=== PATIENT | female | born 1955 | race Caucasian/White ===

== ENCOUNTER 2017-04-10 11:01 | Emergency (ER) | payer OTHER ==
[2017-04-10 11:26] VITALS: TEMP 98.3; BMI 38.7
--- NOTE | 2017-04-10 11:57 | PDOC ---
History of Present Illness - General Chief Complaint: Edema Stated Complaint: LEFT LEG SWELLING Time Seen by Provider: 04/10/17 11:10 - History of Present Illness Initial Comments: 04/10/17 11:53 "The patient is a 61-year-old female from [facility] facility with a significant past medical history of osteoarthritis, hypothyroidism, NIDDM, HTN, HLD, GERD, borderline personality disorder, anxiety, constipation, and presents to the emergency department with left leg swelling for the last few days. She reports she sprained her left ankle one week ago and was seen at [facility] where she had negative Xrays. She has since been ambulatory w/ a walker. Pt is sent from nursing facility because when her ankle wrap was being changed today, the nurse noticed significant redness, swelling, and warmth to her L leg. Pt reports the leg is painful to touch. She does not know exactly when the leg became that swollen but states that both of her legs are swollen at baseline. Pt denies CP, SOB, FLORES. Denies F/C, N/V/D. Allergies: clindamycin, keflex, sulfur, nuts, strawberries Past Surgical History: None reported (awaiting b/l TKRs) Social History: No toxic habits reported PCP: Dr. Judy Harris " Past History - Past Medical History Allergies/Adverse Reactions: Allergies Allergy/AdvReac Type Severity Reaction Status Date / Time bee venom protein (honey bee) Allergy Verified 04/10/17 11:26 cephalexin monohydrate Allergy Verified 04/10/17 11:52 [From Keflex] clindamycin Allergy Verified 04/10/17 11:52 peanut Allergy Verified 04/10/17 11:26 strawberry Allergy Verified 04/10/17 11:26 Sulfa (Sulfonamide Allergy Verified 04/10/17 11:26 Antibiotics) Home Medications: Ambulatory Orders Aripiprazole [Abilify -] 5 mg PO DAILY 04/10/17 Atorvastatin Ca [Lipitor] 10 mg PO HS 04/10/17 Baclofen 20 mg PO TID 04/10/17 Bupropion HCl [Wellbutrin Sr] 150 mg PO DAILY 04/10/17 Cholecalciferol (Vitamin D3) [Vitamin D3 -] 1,000 unit PO DAILY 04/10/17 Clonazepam [Klonopin] 1 mg PO DAILY 04/10/17 Clonazepam [Klonopin] 2 mg PO HS 04/10/17 Clotrimazole/Betamet Diprop [Lotrisone Cream (Small Tube)] 1 applic TP BID 04/10 Docusate Sodium [Colace -] 100 mg PO TID 04/10/17 Doxycycline Hyclate 100 mg PO BID #14 capsule 04/10/17 Furosemide [Lasix] 40 mg PO TID 04/10/17 Gabapentin [Neurontin] 300 mg PO HS 04/10/17 Lactulose 30 gm PO TID 04/10/17 Levothyroxine [Synthroid -] 175 mcg PO DAILY 04/10/17 Magnesium Hydroxide [Milk of Magnesia] 400 mg PO HS 04/10/17 Metoprolol Succinate [Toprol Xl -] 25 mg PO DAILY 04/10/17 Naproxen [Naprosyn -] 375 mg PO BID 04/10/17 Nicotine Polacrilex [Nicotine Gum] 2 mg BC DAILY 04/10/17 Omeprazole 20 mg PO DAILY 04/10/17 Oxycodone HCl/Acetaminophen [Percocet 10-325 mg Tablet] 1 each PO QID PRN Polyethylene Glycol 3350 [Miralax (For Bowel Prep) -] 17 gm PO DAILY 04/10/17 Trazodone HCl 100 mg PO HS 04/10/17 Venlafaxine HCl ER [Effexor Xr -] 150 mg PO BID 04/10/17 Anemia: Yes COPD: No Diabetes: Yes HTN: Yes Hypercholesterolemia: Yes Psychiatric Problems: Yes (anxiety, borderline pesonality, depression) Thyroid Disease: Yes Other medical history: arthritis, spinal stenosis - Suicide/Smoking/Psychosocial Hx Smoking History: Current some day smoker Number of Cigarettes Smoked Daily: 2 Information on smoking cessation initiated: No Review of Systems - Review of Systems Comments:: 04/10/17 11:55 "GENERAL/CONSTITUTIONAL: No fever or chills. No weakness. HEAD, EYES, EARS, NOSE AND THROAT: No change in vision. No ear pain or discharge. No sore throat. CARDIOVASCULAR: No chest pain or shortness of breath. RESPIRATORY: No cough, wheezing, or hemoptysis. GASTROINTESTINAL: No nausea, vomiting, diarrhea or constipation. GENITOURINARY: No dysuria, frequency, or change in urination. MUSCULOSKELETAL: (+) Left leg edema and pain. No neck or back pain. SKIN: No rash NEUROLOGIC: No headache, vertigo, loss of consciousness, or change in strength/ sensation. ENDOCRINE: No increased thirst. No abnormal weight change. HEMATOLOGIC/LYMPHATIC: No anemia, easy bleeding, or history of blood clots. ALLERGIC/IMMUNOLOGIC: No hives or skin allergy. " *Physical Exam - Vital Signs Last Vital Signs Temp Pulse Resp BP Pulse Ox 98.3 F 58 L 18 121/60 98 04/10/17 11:24 04/10/17 11:24 04/10/17 11:24 04/10/17 11:24 04/10/17 11:24 - Physical Exam Comments: 04/10/17 11:55 "GENERAL: Awake, alert, and fully oriented, in no acute distress HEAD: No signs of trauma EYES: PERRLA, EOMI, sclera anicteric, conjunctiva clear ENT: Auricles normal inspection, hearing grossly normal, nares patent, oropharynx clear without exudates. Moist mucosa NECK: Nontender, no stepoffs, Normal ROM, supple, no lymphadenopathy, JVD, or masses LUNGS: Breath sounds equal, clear to auscultation bilaterally. No wheezes, and no crackles HEART: Regular rate and rhythm, normal S1 and S2, no murmurs, rubs or gallops ABDOMEN: Soft, nontender, normoactive bowel sounds. No guarding, no rebound. No masses EXTREMITIES: Normal range of motion, (+) Left lowerleg edema, erythema, and warmth, no fluctuance, distal pulses intact. No clubbing or cyanosis. No cords. NEUROLOGICAL: Cranial nerves II through XII intact. 5/5 strength and sensation in all extremities, Normal speech SKIN: Warm, Dry, normal turgor, no rashes or lesions noted. " ED Treatment Course - LABORATORY CBC & Chemistry Diagram: 04/10/17 11:55 04/10/17 11:55 - RADIOLOGY Radiology Studies Ordered: Category Date Time Status DUPLEX VASCUL US-2LEGS [US] Stat Ultrasound 04/10/17 11:19 Ordered SOFT TISSUE EXTREMITY US [US] Stat Ultrasound 04/10/17 11:21 Ordered - Medications Given in the ED: ED Medications Discontinued Medications Generic Name Dose Route Start Last Admin Trade Name Freq PRN Reason Stop Dose Admin Oxycodone/Acetaminophen 1 combo 04/10/17 11:45 04/10/17 11:48 Percocet 5/325 - PO 04/10/17 11:46 1 combo ONCE ONE Administration Medical Decision Making - Medical Decision Making 04/10/17 11:55 61 F with LLE swelling, redness, and pain. Concerning for cellulitis. Will also evaluate for DVT given limited mobility since spraining her ankle last week. Pt with normal vitals, no signs of systemic infection at this time. Pt already had negative X rays at [facility] and has no tenderness to posterior aspect of lateral or medial malleolus, no tenderness over navicular or base of 5th metatarsal, and pt is ambulatory in ER. - Labs, cultures - US - Abx 04/10/17 14:51 US negative for DVT and abscess. Pt's leg swelling likely 2/2 cellulitis. Pt started on doxycycline (allergies to bactrim, keflex, and clinda). I discussed the physical exam findings, ancillary test results and final diagnoses with the patient. I answered all of the patient's questions. The patient was satisfied with the care received and felt comfortable with the discharge plan and treatment plan. The patient agrees to follow up with the primary care physician within 24-72 hours. 04/12/17 23:55 *DC/Admit/Observation/Transfer Diagnosis at time of Disposition: Cellulitis - Discharge Dispostion Disposition: [facility] Condition at time of disposition: Good - Prescriptions Prescriptions: Doxycycline Hyclate 100 mg PO BID #14 capsule - Referrals Referrals: Judy Harris MD [Primary Care Provider] - - Patient Instructions Printed Discharge Instructions: DI for Cellulitis -- Adult Additional Instructions: Take the doxycycline as prescribed to treat your skin infection. If you experience worsening pain, swelling, redness, fevers, or any other concerning symptoms, return to the ER immediately. Otherwise, follow up with your primary care doctor within 1-2 weeks for a re- evaluation. - Post Discharge Activity - Attestations Physician Attestion: 04/10/17 14:53 I, Dr. Lloyd Moulton MD, attest that this document has been prepared under my direction and personally reviewed by me in its entirety. I further attest, that it accurately reflects all work, treatment, procedures and medical decision -making performed by me.
[2017-04-10 12:09] LABS: EOSINOPHIL 2.3 % (0-4.5); MCHC 33.7 g/dl (32.0-36.0); MEAN PLT VOLUME 7.5 fl (7.5-11.1); PLATELET COUNT 212 K/MM3 (134-434); RDW 13.8 % (11.6-15.6); WHITE BLOOD COUNT 6.5 K/mm3 (4.0-10.0)
[2017-04-10] MEDS ORDERED: VANCOMYCIN 1,250 MG in DEXTROSE 5%-WATER - 250 ML IVPB ONE (12:30)
[2017-04-10 12:41] LABS: ALBUMIN 3.7 g/dl (3.4-5.0); ALK PHOS 110 U/L (45-117); ANION GAP 10 (8-16); BILIRUBIN,TOTAL 0.5 mg/dL (0.2-1.0); C-REACTIVE PROTEIN 3.1 MG/DL (0.00-0.3); CALCIUM 8.4 mg/dL (8.5-10.1); CO2 25 mmol/L (21-32); CREATININE 0.5 mg/dL (0.55-1.02); GLUCOSE,RANDOM 65 mg/dL (74-106); SGOT/AST 16 U/L (15-37); SGPT/ALT 19 U/L (12-78); TOT PROT 6.7 g/dl (6.4-8.2)
[2017-04-10] MEDS ORDERED: DOXYCYCLINE HYCLATE 100 MG CAPSULE PO ONE ×2 (14:45→15:04)
[2017-04-10 15:52] VITALS: BP 139/75; PULSE 62
== END 2017-04-10 16:30 ==
LOC: JER 11:01
DX: L03.116 Cellulitis of left lower limb (principal); I10 Essential (primary) hypertension; E78.00 Pure hypercholesterolemia, unspecified; E03.9 Hypothyroidism, unspecified; E11.9 Type 2 diabetes mellitus without complications; Z79.84 Long term (current) use of oral hypoglycemic drugs; D64.9 Anemia, unspecified; K21.9 Gastro-esophageal reflux disease without esophagitis; F41.8 Other specified anxiety disorders; F60.9 Personality disorder, unspecified; M19.90 Unspecified osteoarthritis, unspecified site; R26.89 Other abnormalities of gait and mobility; Z99.89 Dependence on other enabling machines and devices
CPT/HCPCS: 36415; 76882; 80053; 83880; 85025; 86140; 87040; 93970-TC; 96365; 99282-25

== ENCOUNTER 2017-04-14 21:08 | Emergency (ER) | payer OTHER ==
[2017-04-14 22:29] VITALS: PULSE 70; TEMP 97.6; BMI 38.7
--- NOTE | 2017-04-15 00:24 | PDOC ---
Attending Attestation - Resident Resident Name: Nav Cyr - ED Attending Attestation I have performed the following: I have examined & evaluated the patient, The case was reviewed & discussed with the resident, I agree w/resident's findings & plan, Exceptions are as noted - HPI HPI: 04/15/17 00:18 61yo F hx back surgery, osteoarthiritis p/w L ankle pain and swelling. Pt was seen here 04/10/17 for the same, had LE US which was negative for DVT and DC on doxycycline for cellulitis. Reports redness has improved but had an XR of her ankle at [facility] which showed a fracture and was sent here for management. Pt does not have any XR reports or CDs with her. Reports she has not been able to walk on the ankle since the injury. Denies fevers, chills, cp, sob, abd pain, N/V/D, weakness or numbness. - Physicial Exam PE: 04/15/17 00:24 GENERAL: Awake, alert, and fully oriented, in no acute distress HEAD: No signs of trauma EYES: PERRLA, EOMI, sclera anicteric, conjunctiva clear ENT: Auricles normal inspection, hearing grossly normal, nares patent, oropharynx clear without exudates. Moist mucosa NECK: Normal ROM, supple, no lymphadenopathy, JVD, or masses LUNGS: Breath sounds equal, clear to auscultation bilaterally. No wheezes, and no crackles HEART: Regular rate and rhythm, normal S1 and S2, no murmurs, rubs or gallops ABDOMEN: Soft, nontender, normoactive bowel sounds. No guarding, no rebound. No masses EXTREMITIES: L ankle with deformity and ttp around medial and lateral malleoli. L calf with mild erythema but no induration, warmth, or fluctuance. 1+ edema in b/l calves, not asymmetric. 2+ DP pulse in L foot. Remainder of extremities with FROM, no tenderness or edema with 2+ peripheral pulses NEUROLOGICAL: Normal speech, cranial nerves intact, negative pronator drift, 5/ 5 strength in all 4 extremities, normal sensation to light touch in all 4 extremities, normal cerebellar exam, normal gait, normal reflexes and tone SKIN: Warm, Dry, normal turgor, no rashes or lesions noted. - Medical Decision Making 04/15/17 00:27 61-year-old female presents with likely ankle fracture. LLE is neurovascularly intact. XR with possible tri-malleolar fracture. Case discussed with Dr. Abad who recommends posterior splint and to follow up with him today in clinic. Posterior splint placed. I discussed the physical exam findings, ancillary test results and final diagnoses with the patient. I answered all of the patient's questions. The patient was satisfied with the care received and felt comfortable with the discharge plan and treatment plan. The patient will call their primary care physician within 24 hours to arrange follow-up and will return to the Emergency Department with any new, persistent or worsening symptoms.
--- NOTE | 2017-04-15 00:26 | PDOC ---
History of Present Illness - General Stated Complaint: FRACTURED RT ANKLE Time Seen by Provider: 04/14/17 23:19 History Source: Patient Exam Limitations: No Limitations - History of Present Illness Initial Comments: 04/15/17 00:23 61F with history of osteoarthritis, cellulitis and scoliosis here today complaining of left ankle pain. She says she was using her walker about seven days ago when she slipped and almost fell, catching her weight with her left foot. She says that since then she hasn't been able to use her walker since then. She was evaluated at [facility] ED 4 days ago and diagnosed with cellulitis and treated with doxycycline. She reports taking her doxycycline and gradual improvement of her cellutitis. She denies nausea, vomiting, fevers and chills. She denies chest pain, shortness of breath, and abdominal pain. Past History - Past Medical History Allergies/Adverse Reactions: Allergies Allergy/AdvReac Type Severity Reaction Status Date / Time bee venom protein (honey bee) Allergy Verified 04/14/17 22:24 cephalexin monohydrate Allergy Verified 04/14/17 22:24 [From Keflex] clindamycin Allergy Verified 04/14/17 22:24 peanut Allergy Verified 04/14/17 22:24 strawberry Allergy Verified 04/14/17 22:24 Sulfa (Sulfonamide Allergy Verified 04/14/17 22:24 Antibiotics) Home Medications: Ambulatory Orders Aripiprazole [Abilify -] 5 mg PO DAILY 04/10/17 Atorvastatin Ca [Lipitor] 10 mg PO HS 04/10/17 Baclofen 20 mg PO TID 04/10/17 Bupropion HCl [Wellbutrin Sr] 150 mg PO DAILY 04/10/17 Cholecalciferol (Vitamin D3) [Vitamin D3 -] 1,000 unit PO DAILY 04/10/17 Clonazepam [Klonopin] 1 mg PO DAILY 04/10/17 Clonazepam [Klonopin] 2 mg PO HS 04/10/17 Clotrimazole/Betamet Diprop [Lotrisone Cream (Small Tube)] 1 applic TP BID 04/10 Docusate Sodium [Colace -] 100 mg PO TID 04/10/17 Doxycycline Hyclate 100 mg PO BID #14 capsule 04/10/17 Furosemide [Lasix] 40 mg PO TID 04/10/17 Gabapentin [Neurontin] 300 mg PO HS 04/10/17 Lactulose 30 gm PO TID 04/10/17 Levothyroxine [Synthroid -] 175 mcg PO DAILY 04/10/17 Magnesium Hydroxide [Milk of Magnesia] 400 mg PO HS 04/10/17 Metoprolol Succinate [Toprol Xl -] 25 mg PO DAILY 04/10/17 Naproxen [Naprosyn -] 375 mg PO BID 04/10/17 Nicotine Polacrilex [Nicotine Gum] 2 mg BC DAILY 04/10/17 Omeprazole 20 mg PO DAILY 04/10/17 Oxycodone HCl/Acetaminophen [Percocet 10-325 mg Tablet] 1 each PO QID PRN Polyethylene Glycol 3350 [Miralax (For Bowel Prep) -] 17 gm PO DAILY 04/10/17 Trazodone HCl 100 mg PO HS 04/10/17 Venlafaxine HCl ER [Effexor Xr -] 150 mg PO BID 04/10/17 Anemia: Yes COPD: No Diabetes: Yes HTN: Yes Hypercholesterolemia: Yes Psychiatric Problems: Yes (anxiety, borderline pesonality, depression) Thyroid Disease: Yes - Suicide/Smoking/Psychosocial Hx Smoking History: Unknown if ever smoked Have you smoked in the past 12 months: No Number of Cigarettes Smoked Daily: 2 Information on smoking cessation initiated: No Hx Alcohol Use: No Drug/Substance Use Hx: No Review of Systems - Review of Systems Able to Perform ROS?: Yes Comments:: 04/15/17 00:31 GENERAL/CONSTITUTIONAL: No fever or chills. No weakness. HEAD, EYES, EARS, NOSE AND THROAT: No change in vision. No ear pain or discharge. No sore throat. CARDIOVASCULAR: No chest pain or shortness of breath RESPIRATORY: No cough, wheezing, or hemoptysis. GASTROINTESTINAL: No nausea, vomiting, diarrhea or constipation. GENITOURINARY: No dysuria, frequency, or change in urination. MUSCULOSKELETAL: Positive for left ankle pain and back pain SKIN: Positive for rash over distal left leg NEUROLOGIC: No headache, vertigo, loss of consciousness, or change in strength/ sensation. ENDOCRINE: No increased thirst. No abnormal weight change HEMATOLOGIC/LYMPHATIC: No anemia, easy bleeding, or history of blood clots. ALLERGIC/IMMUNOLOGIC: No hives or skin allergy. *Physical Exam - Vital Signs Last Vital Signs Temp Pulse Resp BP Pulse Ox 97.6 F 70 14 151/75 97 04/14/17 22:25 04/14/17 22:25 04/14/17 22:25 04/14/17 22:25 04/14/17 22:25 - Physical Exam Comments: 04/15/17 00:32 GENERAL: Awake, alert, and fully oriented, in no acute distress HEAD: No signs of trauma, normocephalic, atraumatic EYES: PERRLA, EOMI, sclera anicteric, conjunctiva clear ENT: Auricles normal inspection, hearing grossly normal, nares patent, oropharynx clear without exudates. Moist mucosa NECK: Normal ROM, supple, no lymphadenopathy, JVD, or masses LUNGS: No distress, speaks full sentences, clear to auscultation bilaterally HEART: Regular rate and rhythm, normal S1 and S2, no murmurs, rubs or gallops, peripheral pulses normal and equal bilaterally. ABDOMEN: Soft, nontender, normoactive bowel sounds. No guarding, no rebound. No masses EXTREMITIES: Normal inspection, Normal range of motion, no edema. No clubbing or cyanosis. NEUROLOGICAL: Cranial nerves II through XII grossly intact. Normal speech, normal gait, no focal sensorimotor deficits SKIN: 8x8cm area of erythema on distal anterior leg, not warm to touch L ANKLE/FOOT: Neurovascularly intact, range of motion limited by pain. Tender to palpation in lateral and medial maleolus. Tender to palpation along medial aspect of foot. No obvious swelling or bruising. No obvious deformity. ED Treatment Course - RADIOLOGY Radiology Studies Ordered: Category Date Time Status ANKLE & FOOT-LEFT* [RAD] Stat Radiology 04/15/17 00:17 Ordered Medical Decision Making - Medical Decision Making 04/15/17 02:28 61F with history of OA and scoliosis here today with left ankle pain. Vital signs stable and normal. X-rays show fracture of distal tibia and fibula with small amount of posterior displacement. Dr Tinsley from othropedics consulted, will see patient in the office tomorrow morning. Will place patient in splint as per his instructions for discharge with a prescription for pain control. *DC/Admit/Observation/Transfer Diagnosis at time of Disposition: Closed left ankle fracture - Discharge Dispostion Disposition: HOME Condition at time of disposition: Good Admit: No - Referrals Referrals: Judy Harris MD [Primary Care Provider] - - Patient Instructions Printed Discharge Instructions: Ankle Fracture Additional Instructions: Please see Dr Abad tomorrow in his office between 10a-1p. His office located at [address] and the phone number is [phone]. Please return if you have any new, worsening or concerning symptoms. - Post Discharge Activity
[2017-04-15 05:03] VITALS: BP 131/70
== END 2017-04-15 05:00 ==
LOC: JER 21:08
PROC: 2W3RX1Z Immobilization of Left Lower Leg using Splint (ICD-10-PCS; principal; 2017-04-14)
DX: S82.852A Displaced trimalleolar fracture of left lower leg, initial encounter for closed fracture (principal); W18.39XA Other fall on same level, initial encounter; Y93.01 Activity, walking, marching and hiking; Y92.128 Other place in nursing home as the place of occurrence of the external cause; Y99.8 Other external cause status; D64.9 Anemia, unspecified; I10 Essential (primary) hypertension; E78.00 Pure hypercholesterolemia, unspecified; F41.8 Other specified anxiety disorders; F60.9 Personality disorder, unspecified; M19.90 Unspecified osteoarthritis, unspecified site
CPT/HCPCS: 73610-TC-LT; 73630-TC-LT; 99284-25

== ENCOUNTER 2017-10-13 11:16 | Inpatient (IN) | payer OTHER ==
--- NOTE | 2017-10-13 12:17 | PDOC ---
History of Present Illness - General Chief Complaint: Redness To Affected Area Stated Complaint: CELLULITIS - History of Present Illness Initial Comments: patient is a 61 year old female, with a significant past medical history of HTN , HLD, obesity, recent treated for LE cellulitis at [facility] over two weeks ago, presenting with worsening of LE cellulitis over past week. Pt recently seen at [facility] 2-3 weeks ago for worsening BL LE erythema, drainage. Pt treated with 10 day course of IV abx (unknown), discharged on oral abx (pt unsure) with initial improvement. After discharge on PO abx, pt endorses increased erythema, drainage, primarily from L leg with worsening pain. Pt also endorses one week of chills while at home. Of note, pt with chronic BL LE edema secondary to venous insufficiency. Recently received ?ORIF BL of LEs due to fx, states that after her wen were removed from L leg, began to develop LE cellulitis. No recent travel or sick contacts. Patient denies chest pain, shortness of breath, headache or dizziness. Denies fever, nausea, vomiting, diarrhea. Denies dysuria, frequency, urgency and hematuria. Endorses chronic constipation. No other rashes, nasal congestion, dysphagia, cough. Allergies: Sulfa drug - anaphylaxis Past surgical history: BL LE ORIF for leg fractures Social History: Current smoker, 3/4 cigs per day; no alcohol, drug use PMD: None currently; prior PCP Dr. Judy Harris 10/13/17 12:16 Past History - Past Medical History Allergies/Adverse Reactions: Allergies Allergy/AdvReac Type Severity Reaction Status Date / Time bee venom protein (honey bee) Allergy Verified 10/13/17 11:27 cephalexin monohydrate Allergy Verified 10/13/17 11:27 [From Keflex] clindamycin Allergy Verified 10/13/17 11:27 peanut Allergy Verified 10/13/17 11:27 strawberry Allergy Verified 10/13/17 11:27 Sulfa (Sulfonamide Allergy Verified 10/13/17 11:27 Antibiotics) Home Medications: Ambulatory Orders Aripiprazole [Abilify -] 5 mg PO DAILY 04/10/17 Atorvastatin Ca [Lipitor] 40 mg PO HS 04/10/17 Baclofen 20 mg PO TID 04/10/17 Bupropion HCl [Wellbutrin Sr] 150 mg PO DAILY 04/10/17 Clonazepam [Klonopin] 2 mg PO AM 04/10/17 Clonazepam [Klonopin] 4 mg PO HS 04/10/17 Docusate Sodium [Colace -] 100 mg PO TID 04/10/17 Furosemide [Lasix] 40 mg PO ASDIR 04/10/17 Magnesium Hydroxide [Milk of Magnesia] 30 ml PO HS 04/10/17 Trazodone HCl 100 mg PO HS 04/10/17 Venlafaxine HCl ER [Effexor Xr -] 150 mg PO DAILY 04/10/17 Levothyroxine [Synthroid -] 175 mcg PO DAILY 10/13/17 Pantoprazole Sodium [Protonix] 40 mg PO DAILY 10/13/17 Sennosides [Senna] 2 tab PO HS 10/13/17 Anemia: Yes COPD: No Diabetes: Yes HTN: Yes Hypercholesterolemia: Yes Psychiatric Problems: Yes (anxiety, borderline pesonality, depression) Thyroid Disease: Yes - Suicide/Smoking/Psychosocial Hx Smoking History: Unknown if ever smoked Have you smoked in the past 12 months: No Number of Cigarettes Smoked Daily: 4 Information on smoking cessation initiated: No Hx Alcohol Use: No Drug/Substance Use Hx: No Substance Use Type: None Review of Systems - Review of Systems Comments:: GENERAL/CONSTITUTIONAL: +chills. No fever.No weakness. HEAD, EYES, EARS, NOSE AND THROAT: No change in vision. No ear pain or discharge. No sore throat. CARDIOVASCULAR: No chest pain or shortness of breath RESPIRATORY: No cough, wheezing, or hemoptysis. GASTROINTESTINAL: No nausea, vomiting, diarrhea. +Constipation GENITOURINARY: No dysuria, frequency, or change in urination. MUSCULOSKELETAL: No joint or muscle swelling. No neck or back pain. SKIN: BL LE swelling, erythema, drainage and pain. NEUROLOGIC: No headache, vertigo, loss of consciousness, or change in strength/ sensation. ENDOCRINE: No increased thirst. No abnormal weight change HEMATOLOGIC/LYMPHATIC: No anemia, easy bleeding, or history of blood clots. ALLERGIC/IMMUNOLOGIC: No hives or skin allergy. 10/13/17 12:17 *Physical Exam - Vital Signs Last Vital Signs Temp Pulse Resp BP Pulse Ox 97.7 F 66 18 105/68 96 10/13/17 11:28 10/13/17 11:28 10/13/17 11:28 10/13/17 11:28 10/13/17 11:28 - Physical Exam Comments: GENERAL: Obese woman, Awake, alert, and fully oriented, in no acute distress HEAD: No signs of trauma, normocephalic, atraumatic EYES: PERRLA, EOMI, sclera anicteric, conjunctiva clear ENT: Auricles normal inspection, hearing grossly normal, nares patent, oropharynx clear without exudates. Moist mucosa NECK: Normal ROM, supple, no lymphadenopathy, JVD, or masses LUNGS: Decreased air entry at bases. No distress, speaks full sentences, clear to auscultation bilaterally HEART: Regular rate and rhythm, normal S1 and S2, no murmurs, rubs or gallops, peripheral pulses normal and equal bilaterally. ABDOMEN: Globular. Soft, nontender, normoactive bowel sounds. No guarding, no rebound. No masses EXTREMITIES : Normal inspection, Normal range of motion, no edema. No clubbing or cyanosis. NEUROLOGICAL: Cranial nerves II through XII grossly intact. Normal speech, normal gait, no focal sensorimotor deficits SKIN: Warm, Dry, normal turgor, no rashes or lesions noted 10/13/17 12:17 ED Treatment Course - LABORATORY CBC & Chemistry Diagram: 10/16/17 06:00 10/16/17 06:00 Medical Decision Making - Medical Decision Making 61 year old female, with a significant past medical history of HTN, HLD, obesity , recent treated for LE cellulitis at [facility] over two weeks ago, presenting with worsening of LE cellulitis over past week. Increased BL suspected cellulitis. Will send CMP, CBC, lactate, coags, blood and urine cultures. Will cover empirically with Vanc/zosyn. Will likely admit for cellulitis with vascular and ID consults. 10/13/17 13:56 Pt became rigorous w/ Temp of 103 upon administration of Vanc. Infusion stopped , IV tylenol ordered. 10/13/17 16:[address]ist Resident Dr. Britton. Pt signed out. Will admit to [facility]. 10/13/17 18:13 *DC/Admit/Observation/Transfer Diagnosis at time of Disposition: Cellulitis - Discharge Dispostion Condition at time of disposition: Fair Decision to Admit order: Yes - Referrals - Patient Instructions - Post Discharge Activity
--- NOTE | 2017-10-13 13:46 | PDOC ---
Attending Attestation - Resident Resident Name: ChikaDat - ED Attending Attestation I have performed the following: I have examined & evaluated the patient, The case was reviewed & discussed with the resident, I agree w/resident's findings & plan, Exceptions are as noted - HPI HPI: 10/13/17 13:38 Ms River is a 61 yo F with a h/o HTN, HLD, obesity, recent treated for LE cellulitis at [place] for 10 days, discahrged on po abx Despite compliance, pt has been noted to have worsening erythema. (+) drainage (+) increased pain - Physicial Exam PE: 10/13/17 14:22 GENERAL: Awake, alert, and fully oriented, in no acute distress LUNGS: No distress, speaks full sentences, clear to auscultation bilaterally HEART: Regular rate and rhythm, normal S1 and S2, no murmurs, rubs or gallops, peripheral pulses normal and equal bilaterally. ABDOMEN: Soft, nontender, normoactive bowel sounds. No guarding, no rebound. No masses EXTREMITIES : Normal inspection, Normal range of motion, no edema. No clubbing or cyanosis. NEUROLOGICAL: Cranial nerves II through XII grossly intact. Normal speech, normal gait, no focal sensorimotor deficits SKIN: Bilateral lower extremity edema, erythema, tenderness, warmth (+) drainage - Medical Decision Making 10/13/17 13:46 Will do labs Will give broad spectrum IV abx Admit to hospitalist service
[2017-10-13] MEDS ORDERED: VANCOMYCIN 1,250 MG in DEXTROSE 5%-WATER - 250 ML IVPB ONE (13:53)
[2017-10-13] MEDS ORDERED: PIPERACILLIN/TAZOB 3.375 GM 3.375 GM in DEXTROSE 5%-WATER - 50 ML IVPB ONE ×2 (13:54→23:00)
[2017-10-13 14:21] LABS: EOS % 2.2 % (0-4.5); HEMATOCRIT 30.6 % (32.4-45.2); LYMPH % 22.2 % (8-40); MCH 29.7 pg (25.7-33.7); MCHC 32.6 g/dl (32.0-36.0); MEAN CELL VOLUME 91.3 fl (80-96); MEAN PLT VOLUME 7.4 fl (7.5-11.1); MONO % 7.8 % (3.8-10.2); NEUT % 66.8 % (42.8-82.8); PLATELET COUNT 367 K/MM3 (134-434); RBC 3.35 M/mm3 (3.60-5.2); RDW 15.2 % (11.6-15.6); WHITE BLOOD COUNT 7.2 K/mm3 (4.0-10.0)
[2017-10-13 14:44] LABS: INR 0.95 (0.82-1.09); PROTHROMBIN TIME (PATIENT) 10.7 SEC (9.7-13.0)
[2017-10-13 14:46] LABS: ALBUMIN 2.5 g/dl (3.4-5.0); ALK PHOS 154 U/L (45-117); ANION GAP 6 (8-16); BILIRUBIN,TOTAL 0.2 mg/dL (0.2-1.0); BLOOD UREA NITROGEN 10 mg/dL (7-18); CALCIUM 8.3 mg/dL (8.5-10.1); CHLORIDE 105 mmol/L (98-107); CO2 31 mmol/L (21-32); CREATININE 0.7 mg/dL (0.55-1.02); GLUCOSE,RANDOM 120 mg/dL (74-106); POTASSIUM 4.1 mmol/L (3.5-5.1); SGOT/AST 14 U/L (15-37); SGPT/ALT 14 U/L (12-78); SODIUM 142 mmol/L (136-145); TOT PROT 6.8 g/dl (6.4-8.2)
[2017-10-13] MEDS ORDERED: VANCOMYCIN 1 GRAM (PRE-DOCKED) 1,000 MG/250 ML BAG IVPB ONE (15:07)
[2017-10-13] MEDS ORDERED: PIPERACILLIN/TAZOB 3.375 GM 3.375 GM/50 ML BAG IVPB ONE (15:07)
[2017-10-13] MEDS ORDERED: morphine SULFATE 4 MG/ML VIAL ONE (15:13)
--- NOTE | 2017-10-13 16:17 | HP ---
Admitting History and Physical - Admission History of Present Illness: HPI This is a 61 year old female with pmhx of HTN, HLD, obesity, recent treated for LE cellulitis at [facility] over two weeks ago, presenting with worsening of LE cellulitis over past week. Pt recently seen at [facility] 2-3 weeks ago for worsening BL LE erythema, drainage. Pt treated with 10 day course of IV abx (unknown), discharged on oral abx (pt unsure) with initial improvement. After discharge on PO abx, pt endorses increased erythema, drainage, primarily from L leg with worsening pain. Pt also endorses one week of chills while at home. Of note, pt with chronic BL LE edema secondary to venous insufficiency. Recently received ?ORIF BL of LEs due to fx, states that after her wen were removed from L leg, began to develop LE cellulitis. No recent travel or sick contacts. Patient denies chest pain, shortness of breath, headache or dizziness. Denies fever, nausea, vomiting, diarrhea. Denies dysuria, frequency, urgency and hematuria. Endorses chronic constipation. No other rashes, nasal congestion, dysphagia, cough. Allergies: Sulfa drug - anaphylaxis Past surgical history: BL LE ORIF for leg fractures Social History: Current smoker, 3/4 cigs per day; no alcohol, drug use PMD: None currently; prior PCP Dr. Judy Harris History Source: Family Member, Medical Record - Smoking History Smoking history: Unknown if ever smoked Have you smoked in the past 12 months: No Aproximately how many cigarettes per day: 4 - Alcohol/Substance Use Hx Alcohol Use: No Home Medications - Allergies Allergies/Adverse Reactions: Allergies Allergy/AdvReac Type Severity Reaction Status Date / Time bee venom protein (honey bee) Allergy Verified 10/13/17 11:27 cephalexin monohydrate Allergy Verified 10/13/17 11:27 [From Keflex] clindamycin Allergy Verified 10/13/17 11:27 peanut Allergy Verified 10/13/17 11:27 strawberry Allergy Verified 10/13/17 11:27 Sulfa (Sulfonamide Allergy Verified 10/13/17 11:27 Antibiotics) - Home Medications Home Medications: Ambulatory Orders Aripiprazole [Abilify -] 5 mg PO DAILY 04/10/17 Atorvastatin Ca [Lipitor] 40 mg PO HS 04/10/17 Baclofen 20 mg PO TID 04/10/17 Bupropion HCl [Wellbutrin Sr] 150 mg PO DAILY 04/10/17 Clonazepam [Klonopin] 2 mg PO AM 04/10/17 Clonazepam [Klonopin] 4 mg PO HS 04/10/17 Docusate Sodium [Colace -] 100 mg PO TID 04/10/17 Doxycycline Hyclate 100 mg PO BID #14 capsule 04/10/17 Furosemide [Lasix] 40 mg PO ASDIR 04/10/17 Lactulose 30 gm PO TID 04/10/17 Magnesium Hydroxide [Milk of Magnesia] 30 ml PO HS 04/10/17 Trazodone HCl 100 mg PO HS 04/10/17 Venlafaxine HCl ER [Effexor Xr -] 150 mg PO DAILY 04/10/17 Ammonium Lactate Cream [Lac-Hydrin 12% *Cream*] 1 applic TP DAILY 10/13/17 Oxycodone HCl/Acetaminophen [Percocet 10-325 mg Tablet] 1 each PO QID PRN Pantoprazole Sodium [Protonix] 40 mg PO DAILY 10/13/17 Sennosides [Senna] 2 tab PO HS 10/13/17 Physical Examination Vital Signs: Vital Signs Temperature 97.7 F 10/13/17 11:28 Pulse Rate 66 10/13/17 11:28 Respiratory Rate 18 10/13/17 11:28 Blood Pressure 105/68 10/13/17 11:28 O2 Sat by Pulse Oximetry (%) 96 10/13/17 11:28 Labs: CBC, BMP 10/13/17 14:05 10/13/17 14:05 Hospitalist Screening - Colonoscopy Questionnaire Colonoscopy Questionnaire: Colonoscopy Questionnaire
[2017-10-13] MEDS ORDERED: ACETAMINOPHEN 1000 MG/100 ML VIAL (NON FORMULARY) IVPB ONE (16:43)
--- NOTE | 2017-10-13 19:47 | PN ---
Teaching Attending Note Name of Resident: Sabra Lopez ATTENDING PHYSICIAN STATEMENT I saw and evaluated the patient. I reviewed the resident's note and discussed the case with the resident. I agree with the resident's findings and plan as documented. SUBJECTIVE: CC: LE edema and erythema HPI: poor historian. reports an admission to OSH lately , discharged 3 weeks ago on Abx for LE cellulitis after being treated with IV abx ( unknown names ). after finishing her Abx , legs felt better but then worsened again with edema and erythema, she reports applying a cream to it but does not remember name . she denies fever but reports chills denies trauma, SOB, CP , dysuria or other complaints OBJECTIVE: NAD , dry MM, no facial droop, EOMI, no LAP in neck Cv : RRR, 3/6 Sm at [facility] . Lungs: CTAB Abd: soft, obese, umbilical hernia partially reducible. tender to palpation in all quadrants, no rebound tenderness or guarding . nl BS Ext: erythema and edema on legs with greenish dry secretions on legs . DP 2+ on R , 1+ on L . fungal infection among toes . ASSESSMENT AND PLAN: 61 y/o lady with h/o HTN, HLD, obesity, h/o fracture repair on LE ( not clear ) and recent admission to [place]SH [place] and erythema and was found to have cellulitis of LE . 1- b/l LE cellulitis : with skin breakdown and inea pedis . recent hospitalization , unknown cx or abx used - give zosyn and doxy for now ( had rigors and fever of 03 during vanco infusion in [place]) - follow blood cx - ID consult for Abx guidance - treat tinea pedis with nystatin as this could be port of entry - no signs of sepsis. nL lactic acid - will obtain records and cultures from OSH 2- abd tenderness . no diarrhea . no dysuria -check KUB - check UA 3- Volume depletion : - will clarify home meds. ? lasix - no signs of CHFnow - start hydration 4- h/o depression : cont psych meds DVT PX
--- NOTE | 2017-10-13 20:35 | HP ---
CHIEF COMPLAINT: leg pain and redness PCP: None HISTORY OF PRESENT ILLNESS: The patient is a 61 year old female BIBA from [facility] that presented today complaining of worsening lower extremity pain, swelling and redness progressively over the last several weeks. The patient doesn't know how long. According to her daughter, the patient was also recently treated for cellulitis in [place], hospitalized for 10 days, treated with IV antibiotics. Discharged 2 weeks ago. According to her daughter, she was told that the surgery and wire in left ankle may be contributing to her infection and surgery was recommended in the near future. Her daughter also doesn't remember the name of her antibiotic that she was treated with. When I saw the patient she was complaining of lower extremity pain, redness and feeling chilly , feeling tired. She also admitted to intentionally loosing 45 lbs/year. She denies fever, chest pain, nausea, vomiting. She denies dysuria, increased frequency, urgency. ER course was notable for: (1)Vanco and Zosyn (2)blood cultures (3)CBC, CMP Recent Travel: No PAST MEDICAL HISTORY: as above PAST SURGICAL HISTORY: left ankle surgery 2017, 5 spine surgeries Social History: Smokin-5 cigarettes/day, Alcohol:denies Drugs: denies Family History: Doesn't remember Allergies bee venom protein (honey bee) Allergy (Verified 10/13/17 11:27) cephalexin monohydrate [From Keflex] Allergy (Verified 10/13/17 11:27) clindamycin Allergy (Verified 10/13/17 11:27) peanut Allergy (Verified 10/13/17 11:27) strawberry Allergy (Verified 10/13/17 11:27) Sulfa (Sulfonamide Antibiotics) Allergy (Verified 10/13/17 11:27) HOME MEDICATIONS: Home Medications Medication Instructions Recorded Aripiprazole [Abilify -] 5 mg PO DAILY 04/10/17 Atorvastatin Ca [Lipitor] 40 mg PO HS 04/10/17 Baclofen 20 mg PO TID 04/10/17 Bupropion HCl [Wellbutrin Sr] 150 mg PO DAILY 04/10/17 Clonazepam [Klonopin] 2 mg PO AM 04/10/17 Clonazepam [Klonopin] 4 mg PO HS 04/10/17 Docusate Sodium [Colace -] 100 mg PO TID 04/10/17 Doxycycline Hyclate 100 mg PO BID #14 capsule 04/10/17 Furosemide [Lasix] 40 mg PO ASDIR 04/10/17 Lactulose 30 gm PO TID 04/10/17 Magnesium Hydroxide [Milk of 30 ml PO HS 04/10/17 Magnesia] Trazodone HCl 100 mg PO HS 04/10/17 Venlafaxine HCl ER [Effexor Xr -] 150 mg PO DAILY 04/10/17 Ammonium Lactate Cream [Lac-Hydrin 1 applic TP DAILY 10/13/17 12% *Cream*] Oxycodone HCl/Acetaminophen 1 each PO QID PRN 10/13/17 [Percocet 10-325 mg Tablet] Pantoprazole Sodium [Protonix] 40 mg PO DAILY 10/13/17 Sennosides [Senna] 2 tab PO HS 10/13/17 REVIEW OF SYSTEMS CONSTITUTIONAL: chills, weight loss Absent: fever, diaphoresis, generalized weakness, malaise, loss of appetite, HEENT: Absent: rhinorrhea, nasal congestion, throat pain, throat swelling, difficulty swallowing, mouth swelling, ear pain, eye pain, visual changes CARDIOVASCULAR: Absent: chest pain, syncope, palpitations, irregular heart rate, lightheadedness , peripheral edema RESPIRATORY: Absent: cough, shortness of breath, dyspnea with exertion, orthopnea, wheezing, GASTROINTESTINAL: Absent: abdominal pain, nausea, vomiting, diarrhea, constipation, melena, hematochezia GENITOURINARY: Absent: dysuria, frequency, urgency, hesitancy, hematuria, flank pain, genital pain MUSCULOSKELETAL: lower extremity pain Absent: joint swelling, back pain, neck pain SKIN: rash, Absent: itching, pallor HEMATOLOGIC/IMMUNOLOGIC: Absent: easy bleeding, easy bruising, lymphadenopathy, frequent infections ENDOCRINE: Absent: unexplained weight gain, unexplained weight loss, heat intolerance, cold intolerance NEUROLOGIC: Absent: headache, focal weakness or paresthesias, dizziness, unsteady gait, seizure, mental status changes, bladder or bowel incontinence PSYCHIATRIC: Absent: anxiety, depression PHYSICAL EXAMINATION Vital Signs - 24 hr 10/13/17 11:28 Temperature 97.7 F Pulse Rate 66 Respiratory 18 Rate Blood Pressure 105/68 O2 Sat by Pulse 96 Oximetry (%) GENERAL: Awake, alert, and fully oriented, in no acute distress. HEAD: Normal with no signs of trauma. EYES: Pupils equal, round and reactive to light, extraocular movements intact, sclera anicteric, conjunctiva clear. EARS, NOSE, THROAT: Ears normal, nares patent, oropharynx clear without exudates. Dry mucous membranes. NECK: Normal range of motion, supple without lymphadenopathy, JVD, or masses. LUNGS: Breath sounds equal, clear to auscultation bilaterally. No wheezes, and no crackles. No accessory muscle use. HEART: Regular rate and rhythm, normal S1 and S2 without murmur, rub or gallop. ABDOMEN: Soft, nontender, distended, normoactive bowel sounds, no guarding, no rebound, no masses, umbilical hernia. MUSCULOSKELETAL: Normal range of motion at all joints. No bony deformities or tenderness. UPPER EXTREMITIES: 2+ pulses, warm. No cyanosis. No clubbing. No peripheral edema, bony deformities in PIP, DIP joints in both hands. LOWER EXTREMITIES: 2+ pulses bilaterally, redness and warmth to touch bilaterally from feet to knee bilaterally, edema bilaterally, more in left ankle and foot, oozing in left fox more on lateral side, draining yellowish/ greenish fluid. Right lower extremity: no open wounds. Fungal infection between toes and on toenails. NEUROLOGICAL: No facial asymmetry, no slurred speech, motor 5/5, sensation intact, no gait observed. PSYCHIATRIC: Cooperative. Good eye contact. Appropriate mood and affect. SKIN: Warm, dry, normal. Lower extremities as above Laboratory Results - last 24 hr 10/13/17 10/13/17 10/13/17 14:05 14:05 14:05 WBC 7.2 RBC 3.35 L Hgb 10.0 L Hct 30.6 L MCV 91.3 MCH 29.7 MCHC 32.6 RDW 15.2 D Plt Count 367 D MPV 7.4 L Neutrophils % 66.8 Lymphocytes % 22.2 Monocytes % 7.8 Eosinophils % 2.2 Basophils % 1.0 PT with INR 10.70 INR 0.95 Sodium 142 Potassium 4.1 Chloride 105 Carbon Dioxide 31 Anion Gap 6 L BUN 10 Creatinine 0.7 Creat Clearance w eGFR > 60 Random Glucose 120 H Lactic Acid Calcium 8.3 L Total Bilirubin 0.2 D AST 14 L ALT 14 Alkaline Phosphatase 154 H Total Protein 6.8 Albumin 2.5 L 10/13/17 14:05 WBC RBC Hgb Hct MCV MCH MCHC RDW Plt Count MPV Neutrophils % Lymphocytes % Monocytes % Eosinophils % Basophils % PT with INR INR Sodium Potassium Chloride Carbon Dioxide Anion Gap BUN Creatinine Creat Clearance w eGFR Random Glucose Lactic Acid 1.5 Calcium Total Bilirubin AST ALT Alkaline Phosphatase Total Protein Albumin ASSESSMENT/PLAN: The patient is a 61 year old female BIBA from [facility] that presented today complaining of worsening lower extremity pain, swelling and redness that progressively got worse over the last weeks, but the patient doesn't know how long. The patient was recently treated for cellulitis in [place], finished full course of antibiotics. Cellulitis in lower extremities: -the patient presented with redness, warmth to touch, no elevation of WBC, no fever, VS wnl -she was given Vanco and Zosyn. According to ED resident, she had rigors, 103 F after Vancomycin -we will continue Doxycycline 100 mg BID and Zosyn 375 mg IV -ID consulted, will f/u recommendations -wound care -NS at 100 cc/hr for volume depletion -blood cultures, wound cultures pending -Tylenol for pain -Dupplex of lower extremities no DVTs Abdominal distention: -the patient doesn't complain of abdominal pain but we will obtain KUB flat plate -will f/u UA Fungal infection in feet and under her breast: -continue Nystatin cream Hypothyroidism: -continue Levothyroxin 175 mcg Hyperlipidemia: -cont Lipitor 40 mg daily Possible HTN/CHF: Furosemie 40 mg PO 2 times a week or as needed Depression and anxiety: -we will continue Abilify, Clonazapam DVT ppx: -Heparin sq -scds F/E/N; NS/no changes/Low sodium Disposition: med surg Pharmacy was called. Medications confirmed. Called her daughter Suzy, confirmed most of her PMH. No success with [facility]. Please F/u [place] med records tomorrow. Problem List - Problem (1) Cellulitis Code(s): L03.90 - CELLULITIS, UNSPECIFIED (2) Closed left ankle fracture Code(s): S82.892A - OTH FRACTURE OF LEFT LOWER LEG, INIT FOR CLOS FX Visit type - Emergency Visit Emergency Visit: Yes Care time: The patient presented to the Emergency Department on the above date and was hospitalized for further evaluation of their emergent condition. - New Patient This patient is new to me today: Yes Date on this admission: 10/13/17 - Critical Care Critical Care patient: No Hospitalist Screening - Colonoscopy Questionnaire Colonoscopy Questionnaire: Colonoscopy Questionnaire - Patient: 50 - 75 years old and never had a screening colonoscopy: Unknown History of colon or rectal polyps, or CA: Unknown History of IBD, Crohn's disease or UC: Unknown History of abdominal radiation therapy as a child: Unknown - Relative: 1 with colon or rectal CA, or polyps at age 60 or younger: Unknown Colon or rectal CA diagnosed at age 45 or younger: Unknown Multiple relatives with colon or rectal CA: Unknown - Outcome: Screening Result: Negative Screen
[2017-10-13] MEDS: SODIUM CHLORIDE 1,000 ML IV SCH (22:00)
[2017-10-13 22:03] LABS: BASO % 0.5 % (0-2.0); EOS % 0.3 % (0-4.5); HEMOGLOBIN 9.8 GM/dL (10.7-15.3); LYMPH % 7.2 % (8-40); MCH 29.8 pg (25.7-33.7); MCHC 32.7 g/dl (32.0-36.0); MEAN CELL VOLUME 91.1 fl (80-96); MEAN PLT VOLUME 7.3 fl (7.5-11.1); MONO % 5.5 % (3.8-10.2); NEUT % 86.5 % (42.8-82.8); PLATELET COUNT 372 K/MM3 (134-434); RBC 3.29 M/mm3 (3.60-5.2); RDW 15.4 % (11.6-15.6); WHITE BLOOD COUNT 11.4 K/mm3 (4.0-10.0)
[2017-10-13] MEDS: NYSTATIN 100,000 UNIT/GM TOPICAL CREAM 15 GM TUBE TP SCH (22:04)
[2017-10-13] MEDS: ATORVASTATIN CA 40 MG TABLET (FP) PO SCH (22:04)
[2017-10-13] MEDS: traZODone HCL 100 MG TABLET (FP) PO SCH (22:04)
[2017-10-13] MEDS: DOXYCYCLINE INJECTION 100 MG in DEXTROSE 5%-WATER - 100 ML IVPB SCH (22:05)
[2017-10-13] MEDS ORDERED: ACETAMINOPHEN 325 MG TABLET (FP) ONE (22:33)
[2017-10-13 22:42] LABS: URINE APPEARANCE CLEAR; URINE BILIRUBIN NEGATIVE (<2.0 mg/dL); URINE COLOR STRAW; URINE GLUCOSE (UA) NEGATIVE (NEGATIVE); URINE KETONE NEGATIVE (NEGATIVE); URINE LEUK ESTERASE NEGATIVE (NEGATIVE); URINE NITRITE NEGATIVE (NEGATIVE); URINE PROTEIN NEGATIVE (NEGATIVE); URINE UROBILINOGEN NEGATIVE mg/dL (0.2-1.0)
[2017-10-13 22:48] LABS: ALBUMIN 2.3 g/dl (3.4-5.0); ALK PHOS 133 U/L (45-117); ANION GAP 7 (8-16); BILIRUBIN,TOTAL 0.4 mg/dL (0.2-1.0); BLOOD UREA NITROGEN 10 mg/dL (7-18); CALCIUM 8.3 mg/dL (8.5-10.1); CHLORIDE 106 mmol/L (98-107); CO2 29 mmol/L (21-32); CREATININE 0.8 mg/dL (0.55-1.02); GLUCOSE,RANDOM 97 mg/dL (74-106); POTASSIUM 4.1 mmol/L (3.5-5.1); SGOT/AST 12 U/L (15-37); SGPT/ALT 12 U/L (12-78); SODIUM 142 mmol/L (136-145); TOT PROT 6.4 g/dl (6.4-8.2)
[2017-10-14] MEDS ORDERED: ACETAMINOPHEN 325 MG TABLET (FP) PO SCH
[2017-10-14] MEDS ORDERED: PIPERACILLIN/TAZOBACTAM 3.375 GM VIAL IVPB ONE ×3 (00:43→11:39)
[2017-10-14] MEDS ORDERED: DEXTROSE 5%-WATER - 50 ML IVPB ONE ×3 (00:43→11:39)
[2017-10-14] MEDS: ACETAMINOPHEN 325 MG TABLET (FP) PO SCH ×4 (00:50→18:08)
[2017-10-14] MEDS ORDERED: VANCOMYCIN 1,250 MG in DEXTROSE 5%-WATER - 250 ML IVPB SCH (05:00)
[2017-10-14] MEDS ORDERED: PIPERACILLIN/TAZOB 3.375 GM 3.375 GM in DEXTROSE 5%-WATER - 50 ML IVPB ONE ×2 (05:00→13:00)
[2017-10-14] MEDS ORDERED: PT OWN MED DRAWER 7, Y5N ONE ×3 (05:48→21:12)
[2017-10-14] MEDS ORDERED: LEVOTHYROXINE NA 75 MCG TABLET (FP) ONE (06:20)
[2017-10-14] MEDS ORDERED: LEVOTHYROXINE NA 100 MCG TABLET (FP) ONE (06:20)
[2017-10-14] MEDS: clonazePAM 0.5 MG TABLET PO SCH (06:21)
[2017-10-14] MEDS: LEVOTHYROXINE 100 MCG, LEVOTHYROXINE 75 MCG PO SCH (06:21)
[2017-10-14] MEDS: HEPARIN NA (PORCINE) 5,000 UNITS/ML 1ML VIAL SQ SCH ×3 (06:25→21:14)
[2017-10-14] MEDS ORDERED: LEVOTHYROXINE NA 175 MCG TABLET PO SCH (07:00)
[2017-10-14 08:08] LABS: MAGNESIUM 2.2 mg/dL (1.8-2.4); PHOSPHOROUS 3.1 mg/dL (2.5-4.9)
[2017-10-14 08:47] LABS: BASO % 0.9 % (0-2.0); HEMATOCRIT 28.1 % (32.4-45.2); HEMOGLOBIN 9.4 GM/dL (10.7-15.3); LYMPH % 11.1 % (8-40); MCH 30.8 pg (25.7-33.7); MCHC 33.5 g/dl (32.0-36.0); MEAN CELL VOLUME 92.1 fl (80-96); MEAN PLT VOLUME 7.9 fl (7.5-11.1); MONO % 6.9 % (3.8-10.2); NEUT % 80.1 % (42.8-82.8); PLATELET COUNT 295 K/MM3 (134-434); RBC 3.05 M/mm3 (3.60-5.2); RDW 15.5 % (11.6-15.6); WHITE BLOOD COUNT 8.2 K/mm3 (4.0-10.0)
[2017-10-14 09:23] LABS: ANION GAP 7 (8-16); BLOOD UREA NITROGEN 8 mg/dL (7-18); CHLORIDE 107 mmol/L (98-107); CO2 27 mmol/L (21-32); CREATININE 0.7 mg/dL (0.55-1.02); GLUCOSE,RANDOM 86 mg/dL (74-106); SODIUM 141 mmol/L (136-145)
[2017-10-14] MEDS: DOXYCYCLINE INJECTION 100 MG in DEXTROSE 5%-WATER - 100 ML IVPB SCH ×2 (10:48→21:14)
[2017-10-14] MEDS: PANTOPRAZOLE 40 MG TABLET (FP) PO SCH (10:49)
--- NOTE | 2017-10-14 11:19 | EKG ---
Test Reason : Blood Pressure : / mmHG Vent. Rate : 072 BPM Atrial Rate : 072 BPM P-R Int : 150 ms QRS Dur : 090 ms QT Int : 420 ms P-R-T Axes : 096 026 068 degrees QTc Int : 459 ms POOR DATA QUALITY, INTERPRETATION MAY BE ADVERSELY AFFECTED NORMAL SINUS RHYTHM LOW VOLTAGE QRS NO PREVIOUS ECGS AVAILABLE Confirmed by LOYDA KRAUSE MD ([id number]) on 10/14/2017 11:19:14 AM Referred By: Confirmed By:LOYDA KRAUSE MD
--- NOTE | 2017-10-14 13:28 | CON.ID ---
Consult Consult Specialty:: infectious diseases Referred by:: Reason for Consultation:: bilateral cellulittis of both legs - History of Present Illness Chief Complaint: pain and discharge from the legs History of Present Illness: 61 year old female, with past medical history of HTN, HLD, obesity, recent treated for LE cellulitis at [facility] over two weeks ago, presenting with worsening of LE cellulitis over past week. Pt recently seen at [facility] 2-3 weeks ago for worsening BL LE erythema, drainage. Pt treated with 10 day course of IV abx patient does not know what she was given,then she was discharged on oral abx which she again does not know what it was. , pt endorses increased erythema, drainage, primarily from L leg with worsening pain. Pt also endorses one week of chills while at home. Of note, pt with chronic BL LE edema secondary to venous insufficiency. Recently received ?ORIF BL of LEs due to fx, states that after her wen were removed from L leg, began to develop LE cellulitis. No recent travel or sick contacts. Patient denies chest pain, shortness of breath, headache or dizziness. Denies fever, nausea, vomiting, diarrhea. Denies dysuria, frequency, urgency and hematuria. Endorses chronic constipation. No other rashes, nasal congestion, dysphagia, cough. patient currently still c/o of pain in =her legs left more than right but patient has a superficial wound on her rt leg posteriorly patient was also c/o of abd pain which has since resolved - History Source History Provided By: Patient Limitations to Obtaining History: No Limitations - Past Medical History ...: No - Alcohol/Substance Use Hx Alcohol Use: No - Smoking History Smoking history: Unknown if ever smoked Have you smoked in the past 12 months: No Aproximately how many cigarettes per day: 4 Home Medications - Allergies Allergies/Adverse Reactions: Allergies Allergy/AdvReac Type Severity Reaction Status Date / Time bee venom protein (honey bee) Allergy Verified 10/13/17 11:27 cephalexin monohydrate Allergy Verified 10/13/17 11:27 [From Keflex] clindamycin Allergy Verified 10/13/17 11:27 peanut Allergy Verified 10/13/17 11:27 strawberry Allergy Verified 10/13/17 11:27 Sulfa (Sulfonamide Allergy Verified 10/13/17 11:27 Antibiotics) - Home Medications Home Medications: Ambulatory Orders Aripiprazole [Abilify -] 5 mg PO DAILY 04/10/17 Atorvastatin Ca [Lipitor] 40 mg PO HS 04/10/17 Baclofen 20 mg PO TID 04/10/17 Bupropion HCl [Wellbutrin Sr] 150 mg PO DAILY 04/10/17 Clonazepam [Klonopin] 2 mg PO AM 04/10/17 Clonazepam [Klonopin] 4 mg PO HS 04/10/17 Docusate Sodium [Colace -] 100 mg PO TID 04/10/17 Furosemide [Lasix] 40 mg PO ASDIR 04/10/17 Magnesium Hydroxide [Milk of Magnesia] 30 ml PO HS 04/10/17 Trazodone HCl 100 mg PO HS 04/10/17 Venlafaxine HCl ER [Effexor Xr -] 150 mg PO DAILY 04/10/17 Levothyroxine [Synthroid -] 175 mcg PO DAILY 10/13/17 Pantoprazole Sodium [Protonix] 40 mg PO DAILY 10/13/17 Sennosides [Senna] 2 tab PO HS 10/13/17 Review of Systems - Review of Systems Constitutional: reports: Fever Eyes: reports: No Symptoms HENT: reports: No Symptoms Neck: reports: No Symptoms Cardiovascular: reports: No Symptoms Respiratory: reports: No Symptoms Gastrointestinal: reports: No Symptoms Genitourinary: reports: No Symptoms Musculoskeletal: reports: Other Integumentary: reports: Change in Color, Erythema Neurological: reports: No Symptoms Endocrine: reports: No Symptoms Hematology/Lymphatic: reports: No Symptoms Psychiatric: reports: No Symptoms Physical Exam Vital Signs: Vital Signs Temperature 98.3 F 10/14/17 09:00 Pulse Rate 72 10/14/17 09:00 Respiratory Rate 20 10/14/17 09:00 Blood Pressure 97/61 10/14/17 09:00 O2 Sat by Pulse Oximetry (%) 95 10/13/17 23:34 Constitutional: Yes: Well Nourished, Calm, Mild Distress Neck: Yes: Supple Cardiovascular: Yes: Regular Rate and Rhythm Respiratory: Yes: Regular, CTA Bilaterally Gastrointestinal: Yes: Normal Bowel Sounds, Soft Musculoskeletal: Yes: Other Extremities: Yes: Erythema (bilateral legs) Edema: LLE: Trace, RLE: Trace Integumentary: Yes: Erythema, Onychomycosis, Other (warmth to touch bilaterally from feet to knee bilaterally, edema bilaterally, more in left ankle and foot, oozing in left fox more on lateral side, draining yellowish/greenish fluid. Right lower extremity: no open wounds. Fungal infection between toes and on toenails.) Wound/Incision: Yes: Other (pateint has a superficial wound on the rt leg) Neurological: Yes: Alert, Oriented Psychiatric: Yes: Alert, Oriented Labs: CBC, BMP 10/14/17 07:00 10/14/17 07:00 Imaging - Results X-ray: Report Reviewed, Image Reviewed Cat Scan: Report Reviewed, Image Reviewed Assessment/Plan patient who was recently treated for cellulitis of the leg now coming back wiht cellulitis and onchomycosis patient as far as i think is a non compliant patient onchomycosis b/l leg cellulitis edema of the legs plan nystatin cream for local application wound care continue zosyn await for cx report rest as per the team
--- NOTE | 2017-10-14 13:29 | PN ---
Teaching Attending Note Name of Resident: Jasmeet Vargas ATTENDING PHYSICIAN STATEMENT I saw and evaluated the patient. I reviewed the resident's note and discussed the case with the resident. I agree with the resident's findings and plan as documented. SUBJECTIVE: No fever or chills. No abd pain. has pain in LEgs. no OSB . no events over night OBJECTIVE: NAD , still dry MM, no facial droop Cv : RRR, 3/6 SM at [facility] . Lungs: CTAB Abd: soft, obese, umbilical hernia non-reducible, tender with slightly discolored skin over upper part of the hernia . slightly hyperactive BS. Ext: erythema and edema on legs with greenish dry secretions on legs. DP 2+ on R , 1+ on L . fungal infection among toes . ASSESSMENT AND PLAN: 61 y/o lady with h/o HTN, HLD, obesity, h/o fracture repair on LE ( not clear ) and recent admission to [place]SH [place] and erythema and was found to have cellulitis of LE . 1- b/l LE cellulitis : with skin breakdown and tinea pedis . recent hospitalization , unknown cx or abx used - Cont zosyn and doxy for now ( had rigors and fever of 03 during vanco infusion in [place]) - follow blood cx - ID consult pending -cont nystatin for inea pedis - will obtain records and cultures from OSH 2-KUB with SBO - NL lactic - check CT with po and iv contrast - Surgery consult - make NPO 3- Volume depletion : -cont IVF . cont to hold lasix 4- h/o depression : cont psych meds DVT PX A
[2017-10-14] MEDS: ARIPiprazole 5 MG TABLET (FP) PO SCH (14:30)
[2017-10-14] MEDS: VENLAFAXINE HCL 75 MG E.R. CAPSULES (FP) PO SCH (14:30)
[2017-10-14] MEDS: NYSTATIN 100,000 UNIT/GM TOPICAL CREAM 15 GM TUBE TP SCH ×2 (14:31→21:16)
[2017-10-14] MEDS: DOCUSATE SODIUM 100 MG CAPSULE (FP) PO SCH (18:07)
[2017-10-14] MEDS: POLYETHYLENE GLYCOL 3350 119 GM BTL PO SCH (18:07)
--- NOTE | 2017-10-14 18:16 | PN ---
Physical Exam: SUBJECTIVE: Briefly, 61yo F from [facility] who presented initially for worsening LE b/l pain, swelling, and redness found to have cellulitis. Pt was reports to have been treated at [facility] (2 weeks prior) with a 10-day hospitalization for her cellulitis. however pt is a poor durable medical equipment technician and does not remember her specific IV antibiotics. Pt reports having continued pain in her lower extremities. Pt reports not being able to sleep well due to this pain. Denies any overt fevers or chills during the night. Denies SOB, CP/discomfort, palpitations, dysuria, polyuria, and urinary incontinence OBJECTIVE: Vital Signs Period Temp Pulse Resp BP Sys/Merrill Pulse Ox Last 24 Hr 98.2 F-100.9 F 71-78 18-20 97-116/51-71 95-96 GENERAL: NAD, awake, alert, lying in bed. HEENT: NC/AT, EOMI, ZO, sclera anicteric, dry mucosa, no JVD LUNGS: CTA bilaterally, no wheezes, no crackles, no accessory muscle use. HEART: RRR, S1, S2 without murmur ABDOMEN: Soft, slightly distended, nontender, umbilical hernia noted, no guarding, no suprapubic tenderness, no hepatomegaly. EXTREMITIES: 2+ DP pulses, hot with skin breakdown b/l and erythema, painful to slight touch, purulence noted within some wounds, fungal infection of b/l toes NEUROLOGICAL: CN II - XII grossly intact. STrength 5/5 grossly with LE strength limited by pain. Sensation grossly intact. Normal speech, gait not observed. PSYCH: Normal mood, normal affect. SKIN: Hot, dry, See EXT exam Laboratory Results - last 24 hr 10/13/17 10/13/17 10/13/17 21:15 21:51 21:51 WBC 11.4 H D RBC 3.29 L Hgb 9.8 L Hct 30.0 L MCV 91.1 MCH 29.8 MCHC 32.7 RDW 15.4 Plt Count 372 MPV 7.3 L Neutrophils % 86.5 H D Lymphocytes % 7.2 L D Monocytes % 5.5 Eosinophils % 0.3 D Basophils % 0.5 Sodium 142 Potassium 4.1 Chloride 106 Carbon Dioxide 29 Anion Gap 7 L BUN 10 Creatinine 0.8 Creat Clearance w eGFR > 60 Random Glucose 97 Lactic Acid Calcium 8.3 L Phosphorus Magnesium Total Bilirubin 0.4 D AST 12 L ALT 12 Alkaline Phosphatase 133 H Total Protein 6.4 Albumin 2.3 L Urine Color Straw Urine Appearance Clear Urine pH 7.0 Ur Specific [place] 1.005 Urine Protein Negative Urine Glucose (UA) Negative Urine Ketones Negative Urine Blood Negative Urine Nitrite Negative Urine Bilirubin Negative Urine Urobilinogen Negative Ur Leukocyte Esterase Negative 10/14/17 10/14/17 10/14/17 07:00 07:00 07:00 WBC 8.2 RBC 3.05 L Hgb 9.4 L Hct 28.1 L MCV 92.1 MCH 30.8 MCHC 33.5 RDW 15.5 Plt Count 295 D MPV 7.9 Neutrophils % 80.1 Lymphocytes % 11.1 D Monocytes % 6.9 Eosinophils % 1.0 D Basophils % 0.9 Sodium 141 Potassium 4.0 Chloride 107 Carbon Dioxide 27 Anion Gap 7 L BUN 8 Creatinine 0.7 Creat Clearance w eGFR Random Glucose 86 Lactic Acid Calcium 8.0 L Phosphorus 3.1 Magnesium 2.2 Total Bilirubin AST ALT Alkaline Phosphatase Total Protein Albumin Urine Color Urine Appearance Urine pH Ur Specific [place] Urine Protein Urine Glucose (UA) Urine Ketones Urine Blood Urine Nitrite Urine Bilirubin Urine Urobilinogen Ur Leukocyte Esterase 10/14/17 11:46 WBC RBC Hgb Hct MCV MCH MCHC RDW Plt Count MPV Neutrophils % Lymphocytes % Monocytes % Eosinophils % Basophils % Sodium Potassium Chloride Carbon Dioxide Anion Gap BUN Creatinine Creat Clearance w eGFR Random Glucose Lactic Acid 1.2 Calcium Phosphorus Magnesium Total Bilirubin AST ALT Alkaline Phosphatase Total Protein Albumin Urine Color Urine Appearance Urine pH Ur Specific [place] Urine Protein Urine Glucose (UA) Urine Ketones Urine Blood Urine Nitrite Urine Bilirubin Urine Urobilinogen Ur Leukocyte Esterase Active Medications Generic Name Dose Route Start Last Admin Trade Name Freq PRN Reason Stop Dose Admin Acetaminophen 650 mg 10/13/17 22:05 10/14/17 18:08 Tylenol - PO Not Given Q6HPO JOVANNY Aripiprazole 5 mg 10/14/17 10:00 10/14/17 14:30 Abilify PO 5 mg DAILY JOVANNY Administration Atorvastatin Calcium 40 mg 10/13/17 22:00 10/13/17 22:04 Lipitor - PO 40 mg HS JOVANNY Administration Baclofen 20 mg 10/14/17 22:00 Lioresal - PO TID JOVANNY Bupropion HCl 150 mg 10/14/17 10:00 10/14/17 10:49 Wellbutrin Xl - PO 150 mg DAILY JOVANNY Administration Clonazepam 2 mg 10/14/17 07:00 10/14/17 06:21 Klonopin - PO 2 mg AM JOVANNY Administration Docusate Sodium 100 mg 10/14/17 17:00 10/14/17 18:07 Colace - PO 100 mg DAILY JOVANNY Administration Heparin Sodium (Porcine) 5,000 unit 10/14/17 06:00 10/14/17 14:34 Heparin - SQ 5,000 unit TID JOVANNY Administration Sodium Chloride 1,000 mls @ 100 mls/hr 10/13/17 19:45 10/13/17 22:00 Normal Saline - IV 100 mls/hr ASDIR JOVANNY Administration Doxycycline Hyclate 100 mg/ 100 mls @ 50 mls/hr 10/13/17 22:00 10/14/17 10:48 Dextrose IVPB 50 mls/hr BID JOVANNY Administration Levothyroxine Sodium 100 mcg/ 175 mcg 10/14/17 07:00 10/14/17 06:21 Levothyroxine Sodium 75 mcg PO 175 mcg DAILY@0700 JOVANNY Administration Nystatin 1 applic 10/13/17 22:00 10/14/17 14:31 Mycostatin Cream - TP 1 applic BID JOVANNY Administration Oxycodone HCl 5 mg 10/14/17 18:14 Roxicodone - PO Q6H PRN pain 6-10 Pantoprazole Sodium 40 mg 10/14/17 10:00 10/14/17 10:49 Protonix - PO 40 mg DAILY JOVANNY Administration Polyethylene Glycol 17 gm 10/14/17 17:00 10/14/17 18:07 Miralax (For Daily Use) - PO 17 gm DAILY JOVANNY Administration Senna 1 tab 10/14/17 22:00 Senna - PO BID JOVANNY Trazodone HCl 100 mg 10/13/17 22:00 10/13/17 22:04 Desyrel - PO 100 mg HS JOVANNY Administration Venlafaxine HCl 150 mg 10/14/17 10:00 10/14/17 14:30 Effexor Xr - PO 150 mg DAILY JOVANNY Administration ASSESSMENT/PLAN: 1) Lower extremity cellulitis b/l --Wound cultures obtained today; LLE and RLE on skin breakdown areas --Tinea pedis noted; nystatin cream added --Continue Doxycycline 100mg IVPB BID --Continue Zosyn --ID on board 2) Possible partial obstruction --Abdominal CT with IV contrast (PO and IV) --LA WNL --NPO until further notice --Could be secondary to chronic opiate use 3) Volume depletion without notable electrolyte disturbances --Continue NS@100cc/hr --Hold lasix due to clinically dry 4) History of depression --Continue Effexor 150mg qDaily --Continue Trazodone 100mg PO HS --Continue Wellbutrin 150mg --Continue Klonopin 2mg PO AM 5) Chronic back pain --Continue Baclofen --Continue Tylenol FEN: Fluids, NS@100cc/hr Electrolyte abnormaltiies: None today Nutrition: NPO until CT resolves PPX: DVT - Heparin SQ GI - Protonix 40mg IVP Dispo: Continue M/S monitoring; will attempt to obtain records about prior antibiotics Case discussed with Dr. Garfield Vargas, DO - IM PGY-1 Visit type - Emergency Visit Emergency Visit: No - New Patient This patient is new to me today: Yes Date on this admission: 10/14/17 - Critical Care Critical Care patient: No
[2017-10-14] MEDS: oxyCODONE HCL 5 MG TABLET PO PRN (19:03)
[2017-10-14] MEDS ORDERED: traZODone HCL 50 MG TABLET (FP) ONE (21:10)
[2017-10-14] MEDS: traZODone HCL 100 MG TABLET (FP) PO SCH (21:14)
[2017-10-14] MEDS: ATORVASTATIN CA 40 MG TABLET (FP) PO SCH (21:15)
[2017-10-14] MEDS: BACLOFEN 10 MG TABLET (FP) PO SCH (21:15)
[2017-10-14] MEDS: SENNOSIDES 8.6MG TABLET (FP) PO SCH (21:15)
[2017-10-14] MEDS: SODIUM CHLORIDE 1,000 ML IV SCH (21:15)
[2017-10-15] MEDS: ACETAMINOPHEN 325 MG TABLET (FP) PO SCH ×4 (00:39→17:03)
[2017-10-15] MEDS ORDERED: LEVOTHYROXINE NA 75 MCG TABLET (FP) ONE (06:00)
[2017-10-15] MEDS ORDERED: LEVOTHYROXINE NA 100 MCG TABLET (FP) ONE (06:00)
[2017-10-15] MEDS: BACLOFEN 10 MG TABLET (FP) PO SCH ×3 (06:03→22:55)
[2017-10-15] MEDS: LEVOTHYROXINE 100 MCG, LEVOTHYROXINE 75 MCG PO SCH (06:03)
[2017-10-15] MEDS: HEPARIN NA (PORCINE) 5,000 UNITS/ML 1ML VIAL SQ SCH ×3 (06:03→22:55)
[2017-10-15] MEDS: clonazePAM 0.5 MG TABLET PO SCH (06:03)
[2017-10-15] MEDS: SODIUM CHLORIDE 1,000 ML IV SCH (06:04)
[2017-10-15] MEDS: oxyCODONE HCL 5 MG TABLET PO PRN ×3 (06:09→22:56)
[2017-10-15 07:12] LABS: HEMATOCRIT 27.9 % (32.4-45.2); HEMOGLOBIN 9.3 GM/dL (10.7-15.3); MCH 30.7 pg (25.7-33.7); MCHC 33.4 g/dl (32.0-36.0); MEAN CELL VOLUME 91.9 fl (80-96); MEAN PLT VOLUME 7.6 fl (7.5-11.1); PLATELET COUNT 276 K/MM3 (134-434); RBC 3.04 M/mm3 (3.60-5.2); RDW 15.3 % (11.6-15.6); WHITE BLOOD COUNT 5.8 K/mm3 (4.0-10.0)
[2017-10-15 07:50] LABS: CHLORIDE 109 mmol/L (98-107); SODIUM 141 mmol/L (136-145)
[2017-10-15 08:02] LABS: ANION GAP 6 (8-16); BLOOD UREA NITROGEN 8 mg/dL (7-18); CO2 26 mmol/L (21-32); CREATININE 0.7 mg/dL (0.55-1.02); GLUCOSE,RANDOM 82 mg/dL (74-106)
--- NOTE | 2017-10-15 08:54 | PN ---
Physical Exam: SUBJECTIVE: Patient seen and examined at bedside complains of pain to her legs bilaterally OBJECTIVE: Vital Signs Period Temp Pulse Resp BP Sys/Merrill Pulse Ox Last 24 Hr 98.2 F-98.7 F 64-81 18-20 97-116/60-73 95-96 GENERAL: The patient is awake, alert, and fully oriented, in no acute distress. HEAD: Normal with no signs of trauma. ENT: moist mucous membranes LUNGS: Breath sounds equal, clear to auscultation bilaterally HEART: Regular rate and rhythm, S1, S2 2/6 soft murmur best heard at RUSB ABDOMEN: Soft, obese, non reducible hernia with mild tenderness when palpated over hernia, otherwise non tender EXTREMITIES: warm bilateral lower extremities with erythema and yellow tinged drainage on the ramírez. Excoriation above the posterior ankles bilaterally NEUROLOGICAL: Cranial nerves II through XII grossly intact. Normal speech, gait not observed. PSYCH: Normal mood, normal affect. Laboratory Results - last 24 hr 10/14/17 10/14/17 10/14/17 07:00 07:00 11:46 WBC 8.2 RBC 3.05 L Hgb 9.4 L Hct 28.1 L MCV 92.1 MCH 30.8 MCHC 33.5 RDW 15.5 Plt Count 295 D MPV 7.9 Neutrophils % 80.1 Lymphocytes % 11.1 D Monocytes % 6.9 Eosinophils % 1.0 D Basophils % 0.9 Sodium 141 Potassium 4.0 Chloride 107 Carbon Dioxide 27 Anion Gap 7 L BUN 8 Creatinine 0.7 Random Glucose 86 Lactic Acid 1.2 Calcium 8.0 L 10/15/17 10/15/17 06:30 06:30 WBC 5.8 RBC 3.04 L Hgb 9.3 L Hct 27.9 L MCV 91.9 MCH 30.7 MCHC 33.4 RDW 15.3 Plt Count 276 MPV 7.6 Neutrophils % Lymphocytes % Monocytes % Eosinophils % Basophils % Sodium 141 Potassium 4.0 Chloride 109 H Carbon Dioxide 26 Anion Gap 6 L BUN 8 Creatinine 0.7 Random Glucose 82 Lactic Acid Calcium 8.0 L Active Medications Generic Name Dose Route Start Last Admin Trade Name Freq PRN Reason Stop Dose Admin Acetaminophen 650 mg 10/13/17 22:05 10/15/17 06:04 Tylenol - PO 650 mg Q6HPO JOVANNY Administration Aripiprazole 5 mg 10/14/17 10:00 10/14/17 14:30 Abilify PO 5 mg DAILY JOVANNY Administration Atorvastatin Calcium 40 mg 10/13/17 22:00 10/14/17 21:15 Lipitor - PO 40 mg HS JOVANNY Administration Baclofen 20 mg 10/14/17 22:00 10/15/17 06:03 Lioresal - PO 20 mg TID JOVANNY Administration Bupropion HCl 150 mg 10/14/17 10:00 10/14/17 10:49 Wellbutrin Xl - PO 150 mg DAILY JOVANNY Administration Clonazepam 2 mg 10/14/17 07:00 10/15/17 06:03 Klonopin - PO 2 mg AM JOVANNY Administration Docusate Sodium 100 mg 10/14/17 17:00 10/14/17 18:07 Colace - PO 100 mg DAILY JOVANNY Administration Heparin Sodium (Porcine) 5,000 unit 10/14/17 06:00 10/15/17 06:03 Heparin - SQ 5,000 unit TID JOVANNY Administration Sodium Chloride 1,000 mls @ 100 mls/hr 10/13/17 19:45 10/15/17 06:04 Normal Saline - IV 100 mls/hr ASDIR JOVANNY Administration Doxycycline Hyclate 100 mg/ 100 mls @ 50 mls/hr 10/13/17 22:00 10/14/17 21:14 Dextrose IVPB 50 mls/hr BID JOVANNY Administration Levothyroxine Sodium 100 mcg/ 175 mcg 10/14/17 07:00 10/15/17 06:03 Levothyroxine Sodium 75 mcg PO 175 mcg DAILY@0700 JOVANNY Administration Nystatin 1 applic 10/13/17 22:00 10/14/17 21:16 Mycostatin Cream - TP 1 applic BID JOVANNY Administration Oxycodone HCl 5 mg 10/14/17 18:14 10/15/17 06:09 Roxicodone - PO 5 mg Q6H PRN Administration pain 6-10 Pantoprazole Sodium 40 mg 10/14/17 10:00 10/14/17 10:49 Protonix - PO 40 mg DAILY JOVANNY Administration Polyethylene Glycol 17 gm 10/14/17 17:00 10/14/17 18:07 Miralax (For Daily Use) - PO 17 gm DAILY JOVANNY Administration Senna 1 tab 10/14/17 22:00 10/14/17 21:15 Senna - PO 1 tab BID JOVANNY Administration Trazodone HCl 100 mg 10/13/17 22:00 10/14/17 21:14 Desyrel - PO 100 mg HS JOVANNY Administration Venlafaxine HCl 150 mg 10/14/17 10:00 10/14/17 14:30 Effexor Xr - PO 150 mg DAILY JOVANNY Administration ASSESSMENT/PLAN: 61F with multiple medical problems presents after failed antibiotics treatment of cellulitis of the bilateral lower extremities. Bilateral lower extremity cellulitis: due to tinea pedis as nidus for infection patient states legs look improved continue doxycycline and zosyn day 3 f/u ID f/u cultures local wound care per RN continue nystatin pain control with oxycodone Hypothyroidisn: continue synthroid 175mcg hld: Continue statin Psych: Anxiety/Depression continue klonopin wellbutrin trazadone effexor and abilify abdominal pain/discomfort/distention: improved/resolved tolerating regular/fat controlled diet cotnine miralax and colace FEN: stop NS @ 100ml/hr no electrolyte issues fat controlled diet PPx: HSQ Protnix PT consult to avoid deconditioning Case discussed with attending Dr. Merrill Visit type - Emergency Visit Emergency Visit: Yes ED Registration Date: 10/13/17 Care time: The patient presented to the Emergency Department on the above date and was hospitalized for further evaluation of their emergent condition. - New Patient This patient is new to me today: Yes Date on this admission: 10/15/17 - Critical Care Critical Care patient: No
[2017-10-15] MEDS: PANTOPRAZOLE 40 MG TABLET (FP) PO SCH (09:51)
[2017-10-15] MEDS: DOCUSATE SODIUM 100 MG CAPSULE (FP) PO SCH (09:52)
[2017-10-15] MEDS: VENLAFAXINE HCL 75 MG E.R. CAPSULES (FP) PO SCH (09:52)
[2017-10-15] MEDS: SENNOSIDES 8.6MG TABLET (FP) PO SCH ×2 (09:52→22:55)
[2017-10-15] MEDS: DOXYCYCLINE INJECTION 100 MG in DEXTROSE 5%-WATER - 100 ML IVPB SCH ×2 (09:54→22:55)
[2017-10-15] MEDS: NYSTATIN 100,000 UNIT/GM TOPICAL CREAM 15 GM TUBE TP SCH (09:54)
[2017-10-15] MEDS: ARIPiprazole 5 MG TABLET (FP) PO SCH (09:54)
[2017-10-15] MEDS: POLYETHYLENE GLYCOL 3350 119 GM BTL PO SCH (09:59)
[2017-10-15] MEDS ORDERED: traMADol HCL 50 MG TABLET PO ONE (11:36)
--- NOTE | 2017-10-15 13:28 | PN ---
Teaching Attending Note Name of Resident: Chance Smith ATTENDING PHYSICIAN STATEMENT I saw and evaluated the patient. I reviewed the resident's note and discussed the case with the resident. I agree with the resident's findings and plan as documented. SUBJECTIVE: No fever or chills . no abd pain, no N/V. had big BM today and 2 yesterday. no diarrhea. denies SOB. pain in legs OBJECTIVE: NAD, still dry MM, no facial droop CV : RRR, 3/6 SM at RUSB . Lungs: CTAB Abd: soft, obese, umbilical hernia not fully reducible. NL BS Ext: erythema and edema on legs with greenish dry secretions on legs.superficial laceration on R posteriolateral leg . fungal infection among toes . ASSESSMENT AND PLAN: 61 y/o lady with h/o HTN, HLD, obesity, h/o fracture repair on LE ( not clear ) and recent admission to [facility] for [place]ulitis [place] edema and erythema and was found to have cellulitis of LE . 1- b/l LE cellulitis : with skin breakdown and tinea pedis . - Cont Abx. - follow blood cx and wound cx - cont nystatin for tinea pedis - will obtain records and cultures from OSH 2- bowel distention , likely due to fecal impaction ., Now resolved after having BMs - cont bowel regimen 3- Volume depletion : resolved. dc IVF - cont to hold lasix 4- h/o depression: cont psych meds DVT PX
--- NOTE | 2017-10-15 13:37 | PN ---
Progress Note, Physician History of Present Illness: patient doing well still with leg pain and discharge - Current Medication List Current Medications: Active Medications Acetaminophen (Tylenol -) 650 mg PO Q6HPO [facility] Last Admin: 10/15/17 11:17 Dose: Not Given Aripiprazole (Abilify) 5 mg PO DAILY [facility] Last Admin: 10/15/17 09:54 Dose: 5 mg Atorvastatin Calcium (Lipitor -) 40 mg PO HS [facility] Last Admin: 10/14/17 21:15 Dose: 40 mg Baclofen (Lioresal -) 20 mg PO TID [facility] Last Admin: 10/15/17 13:07 Dose: 20 mg Bupropion HCl (Wellbutrin Xl -) 150 mg PO DAILY [facility] Last Admin: 10/15/17 09:51 Dose: 150 mg Clonazepam (Klonopin -) 2 mg PO AM [facility] Last Admin: 10/15/17 06:03 Dose: 2 mg Docusate Sodium (Colace -) 100 mg PO DAILY [facility] Last Admin: 10/15/17 09:52 Dose: 100 mg Heparin Sodium (Porcine) (Heparin -) 5,000 unit SQ TID [facility] Last Admin: 10/15/17 13:08 Dose: 5,000 unit Doxycycline Hyclate 100 mg/ (Dextrose) 100 mls @ 50 mls/hr IVPB BID [facility] Last Admin: 10/15/17 09:54 Dose: 50 mls/hr Piperacillin Sod/Tazobactam (Sod 3.375 gm/ Dextrose) 50 mls @ 100 mls/hr IVPB Q8H-IV [facility] PRN Reason: Protocol Levothyroxine Sodium 100 mcg/ (Levothyroxine Sodium 75 mcg) 175 mcg PO DAILY@ 0700 [facility] Last Admin: 10/15/17 06:03 Dose: 175 mcg Nystatin (Mycostatin Cream -) 1 applic TP BID [facility] Last Admin: 10/15/17 09:54 Dose: 1 applic Oxycodone HCl (Roxicodone -) 5 mg PO Q6H PRN PRN Reason: pain 6-10 Last Admin: 10/15/17 13:07 Dose: 5 mg Pantoprazole Sodium (Protonix -) 40 mg PO DAILY [facility] Last Admin: 10/15/17 09:51 Dose: 40 mg Polyethylene Glycol (Miralax (For Daily Use) -) 17 gm PO DAILY [facility] Last Admin: 10/15/17 09:59 Dose: 17 gm Senna (Senna -) 1 tab PO BID [facility] Last Admin: 10/15/17 09:52 Dose: 1 tab Trazodone HCl (Desyrel -) 100 mg PO HS [facility] Last Admin: 10/14/17 21:14 Dose: 100 mg Venlafaxine HCl (Effexor Xr -) 150 mg PO DAILY [facility] Last Admin: 10/15/17 09:52 Dose: 150 mg - Objective Vital Signs: Vital Signs Temperature 98.2 F 10/15/17 08:00 Pulse Rate 64 10/15/17 08:00 Respiratory Rate 20 10/15/17 08:00 Blood Pressure 100/60 10/15/17 08:00 O2 Sat by Pulse Oximetry (%) 97 10/15/17 09:00 Constitutional: Yes: Calm, Mild Distress Respiratory: Yes: Regular, CTA Bilaterally Gastrointestinal: Yes: Normal Bowel Sounds, Soft Musculoskeletal: Yes: Other Extremities: Yes: Erythema Edema: LLE: Trace, RLE: Trace Neurological: Yes: Alert, Oriented Psychiatric: Yes: Alert, Oriented Labs: CBC, BMP 10/15/17 06:30 10/15/17 06:30 INR, PTT INR 0.95 (0.82-1.09) 10/13/17 14:05 Assessment/Plan patient who was recently treated for cellulitis of the leg now coming back wiht cellulitis and onchomycosis patient as far as i think is a non compliant patient onchomycosis b/l leg cellulitis edema of the legs plan nystatin cream for local application wound care continue zosyn and doxy await for cx reports rest as per the team wound care consult
[2017-10-15] MEDS ORDERED: PIPERACILLIN/TAZOBACTAM 3.375 GM VIAL IVPB ONE ×2 (14:01→16:42)
[2017-10-15] MEDS ORDERED: DEXTROSE 5%-WATER - 50 ML IVPB ONE ×2 (14:01→16:42)
[2017-10-15] MEDS: PIPERACILLIN/TAZOB 3.375 GM 3.375 GM in DEXTROSE 5%-WATER - 50 ML IVPB SCH ×2 (14:39→18:26)
[2017-10-15] MEDS ORDERED: PT OWN MED DRAWER 7, Y5N ONE (22:53)
[2017-10-15] MEDS: traZODone HCL 100 MG TABLET (FP) PO SCH (22:55)
[2017-10-15] MEDS: ATORVASTATIN CA 40 MG TABLET (FP) PO SCH (22:55)
[2017-10-16] MEDS: ACETAMINOPHEN 325 MG TABLET (FP) PO SCH ×4 (00:36→17:23)
[2017-10-16] MEDS ORDERED: PIPERACILLIN/TAZOBACTAM 3.375 GM VIAL IVPB ONE ×3 (02:55→17:16)
[2017-10-16] MEDS ORDERED: DEXTROSE 5%-WATER - 50 ML IVPB ONE ×3 (02:55→17:16)
[2017-10-16] MEDS: PIPERACILLIN/TAZOB 3.375 GM 3.375 GM in DEXTROSE 5%-WATER - 50 ML IVPB SCH ×3 (02:57→17:31)
[2017-10-16] MEDS ORDERED: LEVOTHYROXINE NA 75 MCG TABLET (FP) ONE (06:16)
[2017-10-16] MEDS ORDERED: LEVOTHYROXINE NA 100 MCG TABLET (FP) ONE (06:16)
[2017-10-16] MEDS: clonazePAM 0.5 MG TABLET PO SCH (06:22)
[2017-10-16] MEDS: BACLOFEN 10 MG TABLET (FP) PO SCH ×3 (06:22→21:39)
[2017-10-16] MEDS: HEPARIN NA (PORCINE) 5,000 UNITS/ML 1ML VIAL SQ SCH ×3 (06:23→21:40)
[2017-10-16] MEDS: LEVOTHYROXINE 100 MCG, LEVOTHYROXINE 75 MCG PO SCH (06:23)
[2017-10-16] MEDS: NYSTATIN 100,000 UNIT/GM TOPICAL CREAM 15 GM TUBE TP SCH ×3 (07:00→21:45)
[2017-10-16 07:35] LABS: HEMATOCRIT 26.4 % (32.4-45.2); HEMOGLOBIN 8.8 GM/dL (10.7-15.3); MCH 30.5 pg (25.7-33.7); MCHC 33.5 g/dl (32.0-36.0); MEAN CELL VOLUME 91.2 fl (80-96); MEAN PLT VOLUME 7.5 fl (7.5-11.1); PLATELET COUNT 249 K/MM3 (134-434); RBC 2.89 M/mm3 (3.60-5.2); RDW 15.4 % (11.6-15.6); WHITE BLOOD COUNT 4.3 K/mm3 (4.0-10.0)
[2017-10-16 07:52] LABS: CALCIUM 8.1 mg/dL (8.5-10.1); CHLORIDE 110 mmol/L (98-107); POTASSIUM 3.6 mmol/L (3.5-5.1); SODIUM 144 mmol/L (136-145)
[2017-10-16 07:54] LABS: BLOOD UREA NITROGEN 11 mg/dL (7-18); GLUCOSE,RANDOM 85 mg/dL (74-106)
[2017-10-16 07:55] LABS: ANION GAP 10 (8-16); CO2 24 mmol/L (21-32); CREATININE 0.8 mg/dL (0.55-1.02)
[2017-10-16] MEDS ORDERED: PT OWN MED DRAWER 7, Y5N ONE ×2 (10:18→15:10)
[2017-10-16] MEDS: SENNOSIDES 8.6MG TABLET (FP) PO SCH ×3 (10:19→21:51)
[2017-10-16] MEDS: PANTOPRAZOLE 40 MG TABLET (FP) PO SCH (10:19)
[2017-10-16] MEDS: VENLAFAXINE HCL 75 MG E.R. CAPSULES (FP) PO SCH (10:19)
[2017-10-16] MEDS: DOCUSATE SODIUM 100 MG CAPSULE (FP) PO SCH (10:19)
[2017-10-16] MEDS: ARIPiprazole 5 MG TABLET (FP) PO SCH (10:19)
[2017-10-16] MEDS: DOXYCYCLINE INJECTION 100 MG in DEXTROSE 5%-WATER - 100 ML IVPB SCH ×2 (10:21→21:41)
[2017-10-16] MEDS: POLYETHYLENE GLYCOL 3350 119 GM BTL PO SCH (10:25)
--- NOTE | 2017-10-16 11:28 | PN ---
Progress Note, Physician History of Present Illness: no complaints patient stable doing well legs feeling better - Current Medication List Current Medications: Active Medications Acetaminophen (Tylenol -) 650 mg PO Q6HPO [facility] Last Admin: 10/16/17 06:22 Dose: 650 mg Aripiprazole (Abilify) 5 mg PO DAILY [facility] Last Admin: 10/16/17 10:19 Dose: 5 mg Atorvastatin Calcium (Lipitor -) 40 mg PO HS [facility] Last Admin: 10/15/17 22:55 Dose: 40 mg Baclofen (Lioresal -) 20 mg PO TID [facility] Last Admin: 10/16/17 06:22 Dose: 20 mg Bupropion HCl (Wellbutrin Xl -) 150 mg PO DAILY [facility] Last Admin: 10/16/17 10:19 Dose: 150 mg Clonazepam (Klonopin -) 2 mg PO AM [facility] Last Admin: 10/16/17 06:22 Dose: 2 mg Docusate Sodium (Colace -) 100 mg PO DAILY [facility] Last Admin: 10/16/17 10:19 Dose: 100 mg Heparin Sodium (Porcine) (Heparin -) 5,000 unit SQ TID [facility] Last Admin: 10/16/17 06:23 Dose: 5,000 unit Doxycycline Hyclate 100 mg/ (Dextrose) 100 mls @ 50 mls/hr IVPB BID [facility] Last Admin: 10/16/17 10:21 Dose: 50 mls/hr Piperacillin Sod/Tazobactam (Sod 3.375 gm/ Dextrose) 50 mls @ 100 mls/hr IVPB Q8H-IV [facility] PRN Reason: Protocol Last Admin: 10/16/17 10:21 Dose: 100 mls/hr Levothyroxine Sodium 100 mcg/ (Levothyroxine Sodium 75 mcg) 175 mcg PO DAILY@ 0700 [facility] Last Admin: 10/16/17 06:23 Dose: 175 mcg Nystatin (Mycostatin Cream -) 1 applic TP BID [facility] Last Admin: 10/16/17 10:37 Dose: 1 applic Oxycodone HCl (Roxicodone -) 5 mg PO Q6H PRN PRN Reason: pain 6-10 Last Admin: 10/15/17 22:56 Dose: 5 mg Pantoprazole Sodium (Protonix -) 40 mg PO DAILY [facility] Last Admin: 10/16/17 10:19 Dose: 40 mg Polyethylene Glycol (Miralax (For Daily Use) -) 17 gm PO DAILY [facility] Last Admin: 10/16/17 10:25 Dose: 17 grams Senna (Senna -) 1 tab PO BID [facility] Last Admin: 10/16/17 10:19 Dose: 1 tab Trazodone HCl (Desyrel -) 100 mg PO HS [facility] Last Admin: 10/15/17 22:55 Dose: 100 mg Venlafaxine HCl (Effexor Xr -) 150 mg PO DAILY [facility] Last Admin: 10/16/17 10:19 Dose: 150 mg - Objective Vital Signs: Vital Signs Temperature 97.6 F 10/16/17 07:20 Pulse Rate 79 10/16/17 07:20 Respiratory Rate 18 10/16/17 07:20 Blood Pressure 138/69 10/16/17 07:20 O2 Sat by Pulse Oximetry (%) 97 10/15/17 21:00 Constitutional: Yes: No Distress, Calm Cardiovascular: Yes: Regular Rate and Rhythm Respiratory: Yes: Regular, CTA Bilaterally Gastrointestinal: Yes: Normal Bowel Sounds, Soft Musculoskeletal: Yes: Other Extremities: Yes: Erythema (improving), Other Neurological: Yes: Alert, Oriented Psychiatric: Yes: Alert, Oriented Labs: CBC, BMP 10/16/17 06:00 10/16/17 06:00 INR, PTT INR 0.95 (0.82-1.09) 10/13/17 14:05 Assessment/Plan onchomycosis b/l leg cellulitis edema of the legs culture of the organism noted plan will get sensitivities furthe will decide about treatment after we ahve sensitivities will stop zosyn will d/w the primary team further plan
[2017-10-16] MEDS: oxyCODONE HCL 5 MG TABLET PO PRN ×3 (11:53→21:39)
--- NOTE | 2017-10-16 15:38 | PN ---
Progress Note (short form) - Note Progress Note: Subjective: No fever or chills . No abd pain. pain in legs and knees. had 2 Bms yesterday Objective: Vital Signs: Last Vital Signs Temp Pulse Resp BP Pulse Ox 98.7 F 79 18 138/69 97 10/16/17 14:00 10/16/17 07:20 10/16/17 07:20 10/16/17 07:20 10/15/17 21:00 Laboratory Results - last 24 hr 10/16/17 10/16/17 06:00 06:00 WBC 4.3 RBC 2.89 L Hgb 8.8 L Hct 26.4 L MCV 91.2 MCH 30.5 MCHC 33.5 RDW 15.4 Plt Count 249 MPV 7.5 Sodium 144 Potassium 3.6 Chloride 110 H Carbon Dioxide 24 Anion Gap 10 BUN 11 Creatinine 0.8 Random Glucose 85 Calcium 8.1 L Physical Exam: NAD,MMM CV : RRR, 3/6 SM at RUSB . Lungs: CTAB Abd: soft, obese, umbilical hernia not fully reducible. NL BS . non distended abd Ext: erythema and edema on legs with greenish dry secretions on legs.superficial laceration on R posteriolateral leg . fungal infection among toes . ASSESSMENT AND PLAN: 61 y/o lady with h/o HTN, HLD, obesity, h/o fracture repair on LE ( not clear ) and recent admission to OSH for [place]ulitis [place] edema and erythema and was found to have cellulitis of LE . 1- b/l LE cellulitis : with skin breakdown and tinea pedis . wound cx with non lactose fermenting GNr, could be pseudomonas - Cont zosyn and doxy. might dc doxy shortly - follow blood cx and wound cx - cont nystatin for tinea pedis 2- bowel distention , likely due to fecal impaction . Now resolved after having BMs - cont bowel regimen 3- Volume depletion: resolved. - cont to hold lasix . might resume soon 4- h/o depression: cont psych meds DVT PX Visit type - Emergency Visit Emergency Visit: Yes ED Registration Date: 10/13/17 Care time: The patient presented to the Emergency Department on the above date and was hospitalized for further evaluation of their emergent condition. - New Patient This patient is new to me today: No - Critical Care Critical Care patient: No - Discharge Referral Referred to [facility] Med P.C[facility] No
[2017-10-16] MEDS ORDERED: traZODone HCL 50 MG TABLET (FP) ONE (21:32)
[2017-10-16] MEDS: ATORVASTATIN CA 40 MG TABLET (FP) PO SCH (21:39)
[2017-10-16] MEDS: traZODone HCL 100 MG TABLET (FP) PO SCH (21:39)
[2017-10-16] MEDS ORDERED: clonazePAM 0.5 MG TABLET PO ONE (22:25)
[2017-10-17] MEDS ORDERED: PIPERACILLIN/TAZOBACTAM 3.375 GM VIAL IVPB ONE ×3 (00:47→18:38)
[2017-10-17] MEDS ORDERED: DEXTROSE 5%-WATER - 50 ML IVPB ONE ×3 (00:48→18:38)
[2017-10-17] MEDS: ACETAMINOPHEN 325 MG TABLET (FP) PO SCH ×4 (00:58→18:14)
[2017-10-17] MEDS: PIPERACILLIN/TAZOB 3.375 GM 3.375 GM in DEXTROSE 5%-WATER - 50 ML IVPB SCH ×3 (01:09→18:39)
[2017-10-17] MEDS ORDERED: LEVOTHYROXINE NA 75 MCG TABLET (FP) ONE (05:22)
[2017-10-17] MEDS ORDERED: LEVOTHYROXINE NA 100 MCG TABLET (FP) ONE (05:23)
[2017-10-17] MEDS: BACLOFEN 10 MG TABLET (FP) PO SCH ×3 (06:02→22:25)
[2017-10-17] MEDS: clonazePAM 0.5 MG TABLET PO SCH (06:03)
[2017-10-17] MEDS: LEVOTHYROXINE 100 MCG, LEVOTHYROXINE 75 MCG PO SCH (06:03)
[2017-10-17] MEDS: oxyCODONE HCL 5 MG TABLET PO PRN ×3 (06:15→18:15)
[2017-10-17] MEDS: HEPARIN NA (PORCINE) 5,000 UNITS/ML 1ML VIAL SQ SCH ×3 (06:32→22:26)
--- NOTE | 2017-10-17 06:59 | PN ---
Physical Exam: SUBJECTIVE: Weekend Events: No notable; L wound culture resolving with nonlactose fermenting GnB Currently, pt seems more pleasant today. Pt reports that it seems her Klonopin may have fallen off the order sets and doesn't know why. Otherwise pt reports improvement in her leg pain without any fevers or chills noted last night. Most recent BM was yesterday afternoon OBJECTIVE: Vital Signs Period Temp Pulse Resp BP Sys/Merrill Pulse Ox Last 24 Hr 97.6 F-98.7 F 64-82 18-20 119-138/69-70 97-98 GENERAL: NAD, awake, alert, lying in bed. HEENT: NC/AT, EOMI, ZO, sclera anicteric, dry mucosa, no JVD LUNGS: CTA bilaterally, no wheezes, no crackles, no accessory muscle use. HEART: RRR, S1, S2 without murmur ABDOMEN: Soft, slightly distended, nontender, umbilical hernia noted, no guarding, no suprapubic tenderness, no hepatomegaly. EXTREMITIES: 2+ DP pulses, fungal infection of b/l toes, improving erythema to b /l legs with vasoline applied to legs. Currently remain warm, however less painful to palpation. PSYCH: Normal mood, normal affect. SKIN: Warm-Hot, See EXT exam Laboratory Results - last 24 hr 10/16/17 10/16/17 06:00 06:00 WBC 4.3 RBC 2.89 L Hgb 8.8 L Hct 26.4 L MCV 91.2 MCH 30.5 MCHC 33.5 RDW 15.4 Plt Count 249 MPV 7.5 Sodium 144 Potassium 3.6 Chloride 110 H Carbon Dioxide 24 Anion Gap 10 BUN 11 Creatinine 0.8 Random Glucose 85 Calcium 8.1 L Active Medications Generic Name Dose Route Start Last Admin Trade Name Freq PRN Reason Stop Dose Admin Acetaminophen 650 mg 10/13/17 22:05 10/17/17 06:02 Tylenol - PO 650 mg Q6HPO JOVANNY Administration Aripiprazole 5 mg 10/14/17 10:00 10/16/17 10:19 Abilify PO 5 mg DAILY JOVANNY Administration Atorvastatin Calcium 40 mg 10/13/17 22:00 10/16/17 21:39 Lipitor - PO 40 mg HS JOVANNY Administration Baclofen 20 mg 10/14/17 22:00 10/17/17 06:02 Lioresal - PO 20 mg TID JOVANNY Administration Bupropion HCl 150 mg 10/14/17 10:00 10/16/17 10:19 Wellbutrin Xl - PO 150 mg DAILY JOVANNY Administration Clonazepam 2 mg 10/14/17 07:00 10/17/17 06:03 Klonopin - PO 2 mg AM JOVANNY Administration Docusate Sodium 100 mg 10/14/17 17:00 10/16/17 10:19 Colace - PO 100 mg DAILY JOVANNY Administration Heparin Sodium (Porcine) 5,000 unit 10/14/17 06:00 10/17/17 06:32 Heparin - SQ 5,000 unit TID JOVANNY Administration Doxycycline Hyclate 100 mg/ 100 mls @ 50 mls/hr 10/13/17 22:00 10/16/17 21:41 Dextrose IVPB 50 mls/hr BID JOVANNY Administration Piperacillin Sod/Tazobactam 50 mls @ 100 mls/hr 10/15/17 13:30 10/17/17 01:09 Sod 3.375 gm/ Dextrose IVPB 100 mls/hr Q8H-IV JOVANNY Administration Protocol Levothyroxine Sodium 100 mcg/ 175 mcg 10/14/17 07:00 10/17/17 06:03 Levothyroxine Sodium 75 mcg PO 175 mcg DAILY@0700 JOVANNY Administration Nystatin 1 applic 10/13/17 22:00 10/16/17 21:45 Mycostatin Cream - TP 1 applic BID JOVANNY Administration Oxycodone HCl 5 mg 10/16/17 15:35 10/17/17 06:15 Roxicodone - PO 5 mg Q4H PRN Administration pain 6-10 Pantoprazole Sodium 40 mg 10/14/17 10:00 10/16/17 10:19 Protonix - PO 40 mg DAILY JOVANNY Administration Polyethylene Glycol 17 gm 10/14/17 17:00 10/16/17 10:25 Miralax (For Daily Use) - PO 17 grams DAILY JOVANNY Administration Senna 1 tab 10/14/17 22:00 10/16/17 21:51 Senna - PO Not Given BID JOVANNY Trazodone HCl 100 mg 10/13/17 22:00 10/16/17 21:39 Desyrel - PO 100 mg HS JOVANNY Administration Venlafaxine HCl 150 mg 10/14/17 10:00 10/16/17 10:19 Effexor Xr - PO 150 mg DAILY JOVANNY Administration ASSESSMENT/PLAN: 1) Lower extremity cellulitis b/l --Wound culture of LLE showing nonlactose fermenting GnB suspicious for pseudomonas --F/u for sensitivities --Tinea pedis noted; nystatin cream to continue --Continue Doxycycline 100mg IVPB BID --Continue Zosyn 3.375gm q8h IVPB --ID on board: Dr. Dean 2) History of depression --Continue Effexor 150mg qDaily --Continue Trazodone 100mg PO HS --Continue Wellbutrin 150mg --Continue Klonopin 2mg PO AM (Remains on order list; discussed with pt) 3) Chronic back pain --Continue Baclofen --Continue Tylenol --Continue Oxycodone 5mg q4h PRN for pain 6-10 4) Constipation with previous fecal impaction --Likely long-term opiate use --Continue Senna 1 tab BID --Continue Miralax 17gm qDaily --Continue Colace 100mg qDaily FEN: Fluids: None currently; euvolemic and tolerating PO Electrolyte abnormaltiies: No BMP today Nutrition: Fat-Controlled diet PPX: DVT - Heparin SQ GI - Protonix 40mg IVP Dispo: Continue M/S monitoring; continued improvement with current ABX regiment (await sensitivities) Case discussed with Dr. Garfield Vargas, DO - IM PGY-1 Visit type - Emergency Visit Emergency Visit: No - New Patient This patient is new to me today: No - Critical Care Critical Care patient: No
[2017-10-17] MEDS ORDERED: PT OWN MED DRAWER 7, Y5N ONE (09:22)
[2017-10-17] MEDS: POLYETHYLENE GLYCOL 3350 119 GM BTL PO SCH (09:26)
[2017-10-17] MEDS: PANTOPRAZOLE 40 MG TABLET (FP) PO SCH (09:26)
[2017-10-17] MEDS: SENNOSIDES 8.6MG TABLET (FP) PO SCH ×2 (09:26→22:25)
[2017-10-17] MEDS: ARIPiprazole 5 MG TABLET (FP) PO SCH (09:27)
[2017-10-17] MEDS: DOCUSATE SODIUM 100 MG CAPSULE (FP) PO SCH (09:27)
[2017-10-17] MEDS: VENLAFAXINE HCL 75 MG E.R. CAPSULES (FP) PO SCH (09:27)
[2017-10-17] MEDS: DOXYCYCLINE INJECTION 100 MG in DEXTROSE 5%-WATER - 100 ML IVPB SCH (09:27)
[2017-10-17] MEDS: NYSTATIN 100,000 UNIT/GM TOPICAL CREAM 15 GM TUBE TP SCH ×2 (09:29→22:31)
--- NOTE | 2017-10-17 11:12 | CONSULT ---
- Consultation REQUESTING PROVIDER: CONSULT REQUEST: We have been asked to surgically evaluate this patient for B/l LE cellulitis. PCP:Leonor Merrill HISTORY OF PRESENT ILLNESS: 61 year old female, with a significant past medical history of HTN, HLD, obesity, recent treated for LE cellulitis at [facility] over two weeks ago, presenting with worsening of LE cellulitis over past week. Pt treated with 10 day course of IV abx (unknown), discharged on oral abx (pt unsure) with initial improvement. After discharge on PO abx, pt states she had increased erythema, drainage, primarily from L leg with worsening pain. Pt also states she had one week of chills while at home. PMHx: HTN, HLD, obesity PSHx: ORIF left ankle Home Medications Medication Instructions Recorded Aripiprazole [Abilify -] 5 mg PO DAILY 04/10/17 Atorvastatin Ca [Lipitor] 40 mg PO HS 04/10/17 Baclofen 20 mg PO TID 04/10/17 Bupropion HCl [Wellbutrin Sr] 150 mg PO DAILY 04/10/17 Clonazepam [Klonopin] 2 mg PO AM 04/10/17 Clonazepam [Klonopin] 4 mg PO HS 04/10/17 Docusate Sodium [Colace -] 100 mg PO TID 04/10/17 Furosemide [Lasix] 40 mg PO ASDIR 04/10/17 Magnesium Hydroxide [Milk of 30 ml PO HS 04/10/17 Magnesia] Trazodone HCl 100 mg PO HS 04/10/17 Venlafaxine HCl ER [Effexor Xr -] 150 mg PO DAILY 04/10/17 Levothyroxine [Synthroid -] 175 mcg PO DAILY 10/13/17 Pantoprazole Sodium [Protonix] 40 mg PO DAILY 10/13/17 Sennosides [Senna] 2 tab PO HS 10/13/17 Allergies Allergy/AdvReac Type Severity Reaction Status Date / Time bee venom protein (honey bee) Allergy Verified 10/13/17 11:27 cephalexin monohydrate Allergy Verified 10/13/17 11:27 [From Keflex] clindamycin Allergy Verified 10/13/17 11:27 peanut Allergy Verified 10/13/17 11:27 strawberry Allergy Verified 10/13/17 11:27 Sulfa (Sulfonamide Allergy Verified 10/13/17 11:27 Antibiotics) REVIEW OF SYSTEMS: CONSTITUTIONAL: + fever, chills, diaphoresis, generalized weakness, malaise, CARDIOVASCULAR: Absent: chest pain, syncope, palpitations, lightheadedness, RESPIRATORY: Absent: cough, shortness of breath, dyspnea with exertion, wheezing, stridor, hemoptysis GASTROINTESTINAL: Absent: abdominal pain, abdominal distension, nausea, vomiting, diarrhea, constipation, melena, hematochezia MUSCULOSKELETAL: + myalgia, arthralgia, joint swelling, SKIN: +b/L LE chronic cellulitis HEMATOLOGIC/IMMUNOLOGIC: Absent: easy bleeding, easy bruising, lymphadenopathy NEUROLOGIC: Absent: headache, focal weakness, paresthesias, bladder or bowel incontinence PSYCHIATRIC: Absent: anxiety, depression, suicidal or homicidal ideation, hallucinations. PHYSICAL EXAM: GENERAL: Awake, alert, and fully oriented, in no acute distress. HEAD: Normal with no signs of trauma. EYES: sclera anicteric, conjunctiva clear. LUNGS: unlabored resp on RA, No accessory muscle use. HEART: Regular rate and rhythm. No murmurs MUSCULOSKELETAL: limited ROM at knees. with diffuse tenderness. LOWER EXTREMITIES: 2+ pulses, warm, well-perfused. Diffuse cellulitis with chronic skin changes extending from b/l ankles up to proximal 1/3rd LE just below knees. multiple areas of venous stasis ulcers over posterior calves. with SS d/c and fibrinous exudate, no foul smell or sign of collection or infection NEUROLOGICAL: Normal speech, gait not observed. PSYCH: Cooperative. Good eye contact. Appropriate mood and affect. Vital Signs Temperature 98.4 F 10/16/17 18:00 Pulse Rate 82 10/16/17 18:00 Respiratory Rate 18 10/16/17 21:00 Blood Pressure 126/69 10/16/17 18:00 O2 Sat by Pulse Oximetry (%) 98 10/16/17 21:00 Lab Results WBC 4.3 K/mm3 (4.0-10.0) 10/16/17 06:00 RBC 2.89 M/mm3 (3.60-5.2) L 10/16/17 06:00 Hgb 8.8 GM/dL (10.7-15.3) L 10/16/17 06:00 Hct 26.4 % (32.4-45.2) L 10/16/17 06:00 MCV 91.2 fl (80-96) 10/16/17 06:00 MCHC 33.5 g/dl (32.0-36.0) 10/16/17 06:00 RDW 15.4 % (11.6-15.6) 10/16/17 06:00 Plt Count 249 K/MM3 (134-434) 10/16/17 06:00 Sodium 144 mmol/L (136-145) 10/16/17 06:00 Potassium 3.6 mmol/L (3.5-5.1) 10/16/17 06:00 Chloride 110 mmol/L (98-107) H 10/16/17 06:00 Carbon Dioxide 24 mmol/L (21-32) 10/16/17 06:00 Anion Gap 10 (8-16) 10/16/17 06:00 BUN 11 mg/dL (7-18) 10/16/17 06:00 Creatinine 0.8 mg/dL (0.55-1.02) 10/16/17 06:00 Random Glucose 85 mg/dL (74-106) 10/16/17 06:00 Calcium 8.1 mg/dL (8.5-10.1) L 10/16/17 06:00 INR 0.95 (0.82-1.09) 10/13/17 14:05 Problem List - Problems (1) Cellulitis Assessment/Plan: Acute on Chronic B/L LE cellulitis in patient who admits to being non-compliant with treatment as she is unable to tolerate compression stocking. 1) IV ABX per ID 2) Santyl to b/l LE daily 3) Compressive sandy to B/L LE at all times 4) Elevate LE with in bed. 5) Follow up with Dr Gambino in Wound Care clinic as out patient. Code(s): L03.90 - CELLULITIS, UNSPECIFIED Qualifiers: Site of cellulitis: extremity Site of cellulitis of extremity: lower extremity Laterality: unspecified laterality Qualified Code(s): L03.119 - Cellulitis of unspecified part of limb
[2017-10-17] MEDS ORDERED: COLLAGENASE CLOSTRIDIUM HIST. 30 GRAMS TUBE TP SCH ×2 (12:24→12:30)
--- NOTE | 2017-10-17 13:45 | PN ---
Teaching Attending Note Name of Resident: Jasmeet Vargas ATTENDING PHYSICIAN STATEMENT I saw and evaluated the patient. I reviewed the resident's note and discussed the case with the resident. I agree with the resident's findings and plan as documented. SUBJECTIVE: No fever or chills. feels better. No SOB. OBJECTIVE: NAD,MMM CV: RRR, 3/6 SM at RUSB . Lungs: CTAB Abd: soft, obese, umbilical hernia not fully reducible. NL BS . non distended abd Ext: erythema and edema on legs with greenish dry secretions on legs.superficial laceration on R posteriolateral leg. fungal infection among toes ( improved ) ASSESSMENT AND PLAN: 61 y/o lady with h/o HTN, HLD, obesity, h/o fracture repair on LE ( not clear ) and recent admission to OSH for [place]ulitis [place] edema and erythema and was found to have cellulitis of LE . 1- b/l LE cellulitis : with skin breakdown and tinea pedis. wound cx with non lactose fermenting GNr, could be pseudomonas - Cont zosyn. will likely dc doxy after d/w ID - follow blood cx and wound cx - cont nystatin for tinea pedis 2- Bowel distention , likely due to fecal impaction . Now resolved after having BMs - cont bowel regimen 3- Volume depletion: resolved. - cont to hold lasix . might resume soon 4- h/o depression: cont psych meds 5- For chronic pain, oxy 5 q4 hr. DVT PX
--- NOTE | 2017-10-17 14:52 | PN ---
Progress Note, Physician History of Present Illness: patient doing well legs have started improving still with some oozing from the left leg legs looking better pain better patient could bear weight on the legs - Current Medication List Current Medications: Active Medications Acetaminophen (Tylenol -) 650 mg PO Q6HPO [facility] [place] Last Admin: 10/17/17 12:02 Dose: 650 mg Aripiprazole (Abilify) 5 mg PO DAILY [facility] Last Admin: 10/17/17 09:27 Dose: 5 mg Atorvastatin Calcium (Lipitor -) 40 mg PO HS [facility] [place] Last Admin: 10/16/17 21:39 Dose: 40 mg Bacitracin (Bacitracin -) 1 applic TP DAILY [facility] Baclofen (Lioresal -) 20 mg PO TID [facility] [place] Last Admin: 10/17/17 14:47 Dose: 20 mg Bupropion HCl (Wellbutrin Xl -) 150 mg PO DAILY [facility] [place] Last Admin: 10/17/17 09:26 Dose: 150 mg Clonazepam (Klonopin -) 2 mg PO AM [facility] [place] Last Admin: 10/17/17 06:03 Dose: 2 mg Docusate Sodium (Colace -) 100 mg PO DAILY [facility] [place] Last Admin: 10/17/17 09:27 Dose: 100 mg Heparin Sodium (Porcine) (Heparin -) 5,000 unit SQ TID [facility] [place] Last Admin: 10/17/17 14:47 Dose: 5,000 unit Doxycycline Hyclate 100 mg/ (Dextrose) 100 mls @ 50 mls/hr IVPB BID [facility] [place] Last Admin: 10/17/17 09:27 Dose: 50 mls/hr Piperacillin Sod/Tazobactam (Sod 3.375 gm/ Dextrose) 50 mls @ 100 mls/hr IVPB Q8H-IV [facility] [place] PRN Reason: Protocol Last Admin: 10/17/17 09:27 Dose: 100 mls/hr Levothyroxine Sodium 100 mcg/ (Levothyroxine Sodium 75 mcg) 175 mcg PO DAILY@ 0700 [facility] [place] Last Admin: 10/17/17 06:03 Dose: 175 mcg Nystatin (Mycostatin Cream -) 1 applic TP BID [facility] [place] Last Admin: 10/17/17 09:29 Dose: 1 applic Oxycodone HCl (Roxicodone -) 5 mg PO Q4H PRN PRN Reason: pain 6-10 Last Admin: 10/17/17 12:02 Dose: 5 mg Pantoprazole Sodium (Protonix -) 40 mg PO DAILY [facility] [place] Last Admin: 10/17/17 09:26 Dose: 40 mg Polyethylene Glycol (Miralax (For Daily Use) -) 17 gm PO DAILY [facility] Last Admin: 10/17/17 09:26 Dose: 17 grams Senna (Senna -) 1 tab PO BID [facility] [place] Last Admin: 10/17/17 09:26 Dose: 1 tab Trazodone HCl (Desyrel -) 100 mg PO HS [facility] Last Admin: 10/16/17 21:39 Dose: 100 mg Venlafaxine HCl (Effexor Xr -) 150 mg PO DAILY [facility] [place] Last Admin: 10/17/17 09:27 Dose: 150 mg - Objective Vital Signs: Vital Signs Temperature 97.9 F 10/17/17 13:47 Pulse Rate 68 10/17/17 13:47 Respiratory Rate 18 10/16/17 21:00 Blood Pressure 110/63 10/17/17 13:47 O2 Sat by Pulse Oximetry (%) 98 10/16/17 21:00 Constitutional: Yes: No Distress, Calm Cardiovascular: Yes: Regular Rate and Rhythm Respiratory: Yes: Regular, CTA Bilaterally Gastrointestinal: Yes: Normal Bowel Sounds, Soft Musculoskeletal: Yes: WNL Extremities: Yes: Erythema (improving), Other Integumentary: Yes: Erythema (improving) Wound/Incision: Yes: Open to air, Draining (from left leg) Neurological: Yes: Alert, Oriented Psychiatric: Yes: Alert, Oriented Labs: CBC, BMP 10/16/17 06:00 10/16/17 06:00 INR, PTT INR 0.95 (0.82-1.09) 10/13/17 14:05 Assessment/Plan onchomycosis b/l leg cellulitis edema of the legs plan continue current abx wound care elevation of legs rest as per the team await for sensitivities and identification of the bacteria
[2017-10-17] MEDS ORDERED: traZODone HCL 50 MG TABLET (FP) ONE (22:24)
[2017-10-17] MEDS: traZODone HCL 100 MG TABLET (FP) PO SCH (22:25)
[2017-10-17] MEDS: ATORVASTATIN CA 40 MG TABLET (FP) PO SCH (22:25)
[2017-10-17 22:49] VITALS: BMI 39.2
[2017-10-17] MEDS ORDERED: clonazePAM 0.5 MG TABLET PO ONE (23:28)
[2017-10-18] MEDS ORDERED: DEXTROSE 5%-WATER - 50 ML IVPB ONE ×2 (01:00→10:24)
[2017-10-18] MEDS ORDERED: PIPERACILLIN/TAZOBACTAM 3.375 GM VIAL IVPB ONE ×2 (01:00→10:24)
[2017-10-18] MEDS: ACETAMINOPHEN 325 MG TABLET (FP) PO SCH ×4 (01:06→18:10)
[2017-10-18] MEDS: PIPERACILLIN/TAZOB 3.375 GM 3.375 GM in DEXTROSE 5%-WATER - 50 ML IVPB SCH ×2 (01:07→10:31)
[2017-10-18] MEDS ORDERED: LEVOTHYROXINE NA 100 MCG TABLET (FP) ONE (05:18)
[2017-10-18] MEDS ORDERED: LEVOTHYROXINE NA 75 MCG TABLET (FP) ONE (05:18)
[2017-10-18] MEDS: clonazePAM 0.5 MG TABLET PO SCH ×2 (06:18→21:25)
[2017-10-18] MEDS: HEPARIN NA (PORCINE) 5,000 UNITS/ML 1ML VIAL SQ SCH ×3 (06:18→21:27)
[2017-10-18] MEDS: BACLOFEN 10 MG TABLET (FP) PO SCH ×3 (06:19→21:25)
[2017-10-18] MEDS: LEVOTHYROXINE 100 MCG, LEVOTHYROXINE 75 MCG PO SCH (06:19)
[2017-10-18 08:55] LABS: HEMATOCRIT 28.3 % (32.4-45.2); HEMOGLOBIN 9.4 GM/dL (10.7-15.3); MCH 30.4 pg (25.7-33.7); MCHC 33.2 g/dl (32.0-36.0); MEAN CELL VOLUME 91.5 fl (80-96); MEAN PLT VOLUME 7.7 fl (7.5-11.1); PLATELET COUNT 251 K/MM3 (134-434); RBC 3.09 M/mm3 (3.60-5.2); RDW 15.1 % (11.6-15.6)
[2017-10-18] MEDS ORDERED: PT OWN MED DRAWER 7, Y5N ONE (10:23)
[2017-10-18] MEDS: ARIPiprazole 5 MG TABLET (FP) PO SCH (10:28)
[2017-10-18] MEDS: SENNOSIDES 8.6MG TABLET (FP) PO SCH ×2 (10:29→21:25)
[2017-10-18] MEDS: DOCUSATE SODIUM 100 MG CAPSULE (FP) PO SCH (10:30)
[2017-10-18] MEDS: VENLAFAXINE HCL 75 MG E.R. CAPSULES (FP) PO SCH (10:30)
[2017-10-18] MEDS: PANTOPRAZOLE 40 MG TABLET (FP) PO SCH (10:30)
[2017-10-18] MEDS: BACITRACIN 15 GM TUBE TOPICAL OINTMENT TP SCH (10:30)
[2017-10-18] MEDS: NYSTATIN 100,000 UNIT/GM TOPICAL CREAM 15 GM TUBE TP SCH ×2 (10:31→21:27)
[2017-10-18] MEDS: POLYETHYLENE GLYCOL 3350 119 GM BTL PO SCH (10:31)
[2017-10-18] MEDS: oxyCODONE HCL 5 MG TABLET PO PRN ×2 (11:35→18:10)
--- NOTE | 2017-10-18 13:50 | PN ---
Physical Exam: SUBJECTIVE: No acute events overnight. No complaints today OBJECTIVE: Vital Signs Period Temp Pulse Resp BP Sys/Merrill Pulse Ox Last 24 Hr 98.0 F-98.3 F 63-63 20-20 124-129/74-78 98-98 GENERAL: NAD, awake, alert, lying in bed. HEENT: NC/AT, EOMI, ZO, sclera anicteric, dry mucosa, no JVD LUNGS: CTA bilaterally, no wheezes, no crackles, no accessory muscle use. HEART: RRR, S1, S2 without murmur ABDOMEN: Soft, slightly distended, nontender, umbilical hernia noted, no guarding, no suprapubic tenderness, no hepatomegaly. EXTREMITIES: 2+ DP pulses, fungal infection of b/l toes, improving erythema to b /l legs with vasoline applied to legs. Currently remain warm, however less painful to palpation. PSYCH: Normal mood, normal affect. SKIN: Warm-Hot, See EXT exam Laboratory Results - last 24 hr 10/18/17 08:00 WBC 5.0 RBC 3.09 L Hgb 9.4 L Hct 28.3 L MCV 91.5 MCH 30.4 MCHC 33.2 RDW 15.1 Plt Count 251 MPV 7.7 Active Medications Generic Name Dose Route Start Last Admin Trade Name Freq PRN Reason Stop Dose Admin Acetaminophen 650 mg 10/13/17 22:05 10/18/17 11:36 Tylenol - PO 650 mg Q6HPO JOVANNY Administration Aripiprazole 5 mg 10/14/17 10:00 10/18/17 10:28 Abilify PO 5 mg DAILY JOVANNY Administration Atorvastatin Calcium 40 mg 10/13/17 22:00 10/17/17 22:25 Lipitor - PO 40 mg HS JOVANNY Administration Bacitracin 1 applic 10/18/17 10:00 10/18/17 10:30 Bacitracin - TP 1 applic DAILY JOVANNY Administration Baclofen 20 mg 10/14/17 22:00 10/18/17 06:19 Lioresal - PO 20 mg TID JOVANNY Administration Bupropion HCl 150 mg 10/14/17 10:00 10/18/17 10:29 Wellbutrin Xl - PO 150 mg DAILY JOVANNY Administration Clonazepam 2 mg 10/14/17 07:00 10/18/17 06:18 Klonopin - PO 2 mg AM JOAVNNY Administration Docusate Sodium 100 mg 10/14/17 17:00 10/18/17 10:30 Colace - PO 100 mg DAILY JOVANNY Administration Heparin Sodium (Porcine) 5,000 unit 10/14/17 06:00 10/18/17 06:18 Heparin - SQ 5,000 unit TID JOVANNY Administration Piperacillin Sod/Tazobactam 50 mls @ 100 mls/hr 10/15/17 13:30 10/18/17 10:31 Sod 3.375 gm/ Dextrose IVPB 100 mls/hr Q8H-IV JOVANNY Administration Protocol Levothyroxine Sodium 100 mcg/ 175 mcg 10/14/17 07:00 10/18/17 06:19 Levothyroxine Sodium 75 mcg PO 175 mcg DAILY@0700 JOVANNY Administration Nystatin 1 applic 10/13/17 22:00 10/18/17 10:31 Mycostatin Cream - TP 1 applic BID JOVANNY Administration Oxycodone HCl 5 mg 10/16/17 15:35 10/18/17 11:35 Roxicodone - PO 5 mg Q4H PRN Administration pain 6-10 Pantoprazole Sodium 40 mg 10/14/17 10:00 10/18/17 10:30 Protonix - PO 40 mg DAILY JOVANNY Administration Polyethylene Glycol 17 gm 10/14/17 17:00 10/18/17 10:31 Miralax (For Daily Use) - PO 17 grams DAILY JOVANNY Administration Senna 1 tab 10/14/17 22:00 10/18/17 10:29 Senna - PO 1 tab BID JOVANNY Administration Trazodone HCl 100 mg 10/13/17 22:00 10/17/17 22:25 Desyrel - PO 100 mg HS JOVANNY Administration Venlafaxine HCl 150 mg 10/14/17 10:00 10/18/17 10:30 Effexor Xr - PO 150 mg DAILY JOVANNY Administration ASSESSMENT/PLAN: 1) Lower extremity cellulitis b/l --Wound culture of LLE showing highly resistant acinterobacter --ID notified --Isolation precautions initiated --contacted micro regarding additional sensitivies to polymyxin and tigacycline --one dose tigacycline 100mg now --d/c zosyn --Tinea pedis noted; nystatin cream to continue --ID on board: Dr. Dean 2) History of depression --Continue Effexor 150mg qDaily --Continue Trazodone 100mg PO HS --Continue Wellbutrin 150mg --Continue Klonopin 2mg PO AM 3) Chronic back pain --Continue Baclofen --Continue Tylenol --Continue Oxycodone 5mg q4h PRN for pain 6-10 4) Constipation with previous fecal impaction --Likely long-term opiate use --Continue Senna 1 tab BID --Continue Miralax 17gm qDaily --Continue Colace 100mg qDaily FEN: Fluids: None currently; euvolemic and tolerating PO Electrolyte abnormaltiies: No BMP today Nutrition: Fat-Controlled diet PPX: DVT - Heparin SQ GI - Protonix 40mg IVP Dispo: Continue M/S monitoring; new abx regiment --> iso precautions Case discussed with Dr. Garfield Vargas, DO - IM PGY-1 Visit type - Emergency Visit Emergency Visit: No - New Patient This patient is new to me today: No - Critical Care Critical Care patient: No
--- NOTE | 2017-10-18 14:30 | PN ---
Progress Note, Physician History of Present Illness: patient stable no new issues all sensitivities noted mdr acetonbacter - Current Medication List Current Medications: Active Medications Acetaminophen (Tylenol -) 650 mg PO Q6HPO [facility] Last Admin: 10/18/17 11:36 Dose: 650 mg Aripiprazole (Abilify) 5 mg PO DAILY [facility] Last Admin: 10/18/17 10:28 Dose: 5 mg Atorvastatin Calcium (Lipitor -) 40 mg PO HS [facility] Last Admin: 10/17/17 22:25 Dose: 40 mg Bacitracin (Bacitracin -) 1 applic TP DAILY [facility] Last Admin: 10/18/17 10:30 Dose: 1 applic Baclofen (Lioresal -) 20 mg PO TID [facility] Last Admin: 10/18/17 13:59 Dose: 20 mg Bupropion HCl (Wellbutrin Xl -) 150 mg PO DAILY [facility] Last Admin: 10/18/17 10:29 Dose: 150 mg Clonazepam (Klonopin -) 2 mg PO AM [facility] Last Admin: 10/18/17 06:18 Dose: 2 mg Docusate Sodium (Colace -) 100 mg PO DAILY [facility] Last Admin: 10/18/17 10:30 Dose: 100 mg Heparin Sodium (Porcine) (Heparin -) 5,000 unit SQ TID [facility] Last Admin: 10/18/17 13:59 Dose: 5,000 unit Piperacillin Sod/Tazobactam (Sod 3.375 gm/ Dextrose) 50 mls @ 100 mls/hr IVPB Q8H-IV JOVANNY PRN Reason: Protocol Last Admin: 10/18/17 10:31 Dose: 100 mls/hr Levothyroxine Sodium 100 mcg/ (Levothyroxine Sodium 75 mcg) 175 mcg PO DAILY@ 0700 [facility] Last Admin: 10/18/17 06:19 Dose: 175 mcg Nystatin (Mycostatin Cream -) 1 applic TP BID [facility] Last Admin: 10/18/17 10:31 Dose: 1 applic Oxycodone HCl (Roxicodone -) 5 mg PO Q4H PRN PRN Reason: pain 6-10 Last Admin: 10/18/17 11:35 Dose: 5 mg Pantoprazole Sodium (Protonix -) 40 mg PO DAILY [facility] Last Admin: 10/18/17 10:30 Dose: 40 mg Polyethylene Glycol (Miralax (For Daily Use) -) 17 gm PO DAILY [facility] Last Admin: 10/18/17 10:31 Dose: 17 grams Senna (Senna -) 1 tab PO BID [facility] Last Admin: 10/18/17 10:29 Dose: 1 tab Trazodone HCl (Desyrel -) 100 mg PO HS [facility] Last Admin: 10/17/17 22:25 Dose: 100 mg Venlafaxine HCl (Effexor Xr -) 150 mg PO DAILY [facility] Last Admin: 10/18/17 10:30 Dose: 150 mg - Objective Vital Signs: Vital Signs Temperature 98.0 F 10/18/17 08:00 Pulse Rate 63 10/18/17 08:00 Respiratory Rate 20 10/18/17 08:00 Blood Pressure 129/74 10/18/17 08:00 O2 Sat by Pulse Oximetry (%) 98 10/18/17 08:00 Constitutional: Yes: No Distress, Calm Cardiovascular: Yes: Regular Rate and Rhythm Respiratory: Yes: Regular, CTA Bilaterally Gastrointestinal: Yes: Normal Bowel Sounds, Soft Musculoskeletal: Yes: Other Extremities: Yes: Other (b/l cellulitis of the leg with oozing) Neurological: Yes: Alert, Oriented Psychiatric: Yes: Alert, Oriented Labs: CBC, BMP 10/18/17 08:00 10/16/17 06:00 INR, PTT INR 0.95 (0.82-1.09) 10/13/17 14:05 Assessment/Plan onchomycosis b/l leg cellulitis edema of the legs culture of the organism noted plan continue current mgmt await for further sensitivities will d/w the team micro to do more sensitivities
--- NOTE | 2017-10-18 15:43 | PN ---
Teaching Attending Note Name of Resident: Jasmeet Vargas ATTENDING PHYSICIAN STATEMENT I saw and evaluated the patient. I reviewed the resident's note and discussed the case with the resident. I agree with the resident's findings and plan as documented. SUBJECTIVE: No events over night ASSESSMENT AND PLAN: 61 y/o lady with h/o HTN, HLD, obesity, h/o fracture repair on LE ( not clear ) and recent admission to [place]SH [place] and erythema and was found to have cellulitis of LE . 1- b/l LE cellulitis: with skin breakdown and tinea pedis. wound cx withAcinetobacter . sensitivity reviewed and d/w Dr. Dean - cont zosyn for now - will ask micro labs to check sensitivity ot tigecyclin - cont nystatin for tinea pedis 2- Bowel distention , likely due to fecal impaction . Now resolved after having BMs - cont bowel regimen 3- Volume depletion: resolved. - cont to hold lasix . might resume soon 4- h/o depression: cont psych meds 5- For chronic pain, oxy 5 q4 hr. DVT PX PT eval
[2017-10-18] MEDS ORDERED: TIGECYCLINE 100 MG in DEXTROSE 5%-WATER - 100 ML IVPB ONE (17:15)
[2017-10-18] MEDS ORDERED: traZODone HCL 50 MG TABLET (FP) ONE (21:10)
[2017-10-18] MEDS: ATORVASTATIN CA 40 MG TABLET (FP) PO SCH (21:25)
[2017-10-18] MEDS: traZODone HCL 100 MG TABLET (FP) PO SCH (21:26)
[2017-10-19] MEDS: ACETAMINOPHEN 325 MG TABLET (FP) PO SCH ×5 (00:14→23:23)
[2017-10-19] MEDS ORDERED: LEVOTHYROXINE NA 100 MCG TABLET (FP) ONE (05:46)
[2017-10-19] MEDS ORDERED: LEVOTHYROXINE NA 75 MCG TABLET (FP) ONE ×2 (05:46→06:44)
[2017-10-19] MEDS: HEPARIN NA (PORCINE) 5,000 UNITS/ML 1ML VIAL SQ SCH ×3 (06:43→21:49)
[2017-10-19] MEDS: LEVOTHYROXINE 100 MCG, LEVOTHYROXINE 75 MCG PO SCH (06:43)
[2017-10-19] MEDS: BACLOFEN 10 MG TABLET (FP) PO SCH ×3 (06:55→21:49)
[2017-10-19] MEDS: clonazePAM 0.5 MG TABLET PO SCH ×2 (06:55→21:49)
[2017-10-19] MEDS ORDERED: PT OWN MED DRAWER 7, Y5N ONE (10:03)
[2017-10-19] MEDS: ARIPiprazole 5 MG TABLET (FP) PO SCH (10:14)
[2017-10-19] MEDS: DOCUSATE SODIUM 100 MG CAPSULE (FP) PO SCH (10:14)
[2017-10-19] MEDS: VENLAFAXINE HCL 75 MG E.R. CAPSULES (FP) PO SCH (10:14)
[2017-10-19] MEDS: PANTOPRAZOLE 40 MG TABLET (FP) PO SCH (10:15)
[2017-10-19] MEDS: SENNOSIDES 8.6MG TABLET (FP) PO SCH ×2 (10:15→21:57)
[2017-10-19] MEDS: POLYETHYLENE GLYCOL 3350 119 GM BTL PO SCH (10:16)
[2017-10-19] MEDS: BACITRACIN 15 GM TUBE TOPICAL OINTMENT TP SCH (10:16)
[2017-10-19] MEDS: NYSTATIN 100,000 UNIT/GM TOPICAL CREAM 15 GM TUBE TP SCH ×2 (10:16→21:50)
--- NOTE | 2017-10-19 13:36 | PN ---
Progress Note, Physician History of Present Illness: patient stable no new issues all sensitivities noted mdr acetonbacter - Current Medication List Current Medications: Active Medications Acetaminophen (Tylenol -) 650 mg PO Q6HPO [facility] Last Admin: 10/19/17 06:44 Dose: 650 mg Aripiprazole (Abilify) 5 mg PO DAILY [facility] Last Admin: 10/19/17 10:14 Dose: 5 mg Atorvastatin Calcium (Lipitor -) 40 mg PO HS [facility] Last Admin: 10/18/17 21:25 Dose: 40 mg Bacitracin (Bacitracin -) 1 applic TP DAILY [facility] Last Admin: 10/19/17 10:16 Dose: 1 applic Baclofen (Lioresal -) 20 mg PO TID [facility] Last Admin: 10/19/17 06:55 Dose: 20 mg Bupropion HCl (Wellbutrin Xl -) 150 mg PO DAILY [facility] Last Admin: 10/19/17 10:16 Dose: 150 mg Clonazepam (Klonopin -) 2 mg PO AM [facility] Last Admin: 10/19/17 06:55 Dose: 2 mg Clonazepam (Klonopin -) 2 mg PO HS [facility] Last Admin: 10/18/17 21:25 Dose: 2 mg Docusate Sodium (Colace -) 100 mg PO DAILY [facility] Last Admin: 10/19/17 10:14 Dose: 100 mg Heparin Sodium (Porcine) (Heparin -) 5,000 unit SQ TID [facility] Last Admin: 10/19/17 06:43 Dose: 5,000 unit Tigecycline 50 mg/ Dextrose 100 mls @ 100 mls/hr IVPB BID [facility]; Protocol Levothyroxine Sodium 100 mcg/ (Levothyroxine Sodium 75 mcg) 175 mcg PO DAILY@ 0700 [facility] Last Admin: 10/19/17 06:43 Dose: 175 mcg Nystatin (Mycostatin Cream -) 1 applic TP BID [facility] Last Admin: 10/19/17 10:16 Dose: 1 applic Oxycodone HCl (Roxicodone -) 5 mg PO Q4H PRN PRN Reason: pain 6-10 Last Admin: 10/18/17 18:10 Dose: 5 mg Pantoprazole Sodium (Protonix -) 40 mg PO DAILY [facility] Last Admin: 10/19/17 10:15 Dose: 40 mg Polyethylene Glycol (Miralax (For Daily Use) -) 17 gm PO DAILY [facility] Last Admin: 10/19/17 10:16 Dose: 17 grams Senna (Senna -) 1 tab PO BID [facility] Last Admin: 10/19/17 10:15 Dose: 1 tab Trazodone HCl (Desyrel -) 100 mg PO HS [facility] Last Admin: 10/18/17 21:26 Dose: 100 mg Venlafaxine HCl (Effexor Xr -) 150 mg PO DAILY [facility] Last Admin: 10/19/17 10:14 Dose: 150 mg - Objective Vital Signs: Vital Signs Temperature 98.4 F 10/19/17 06:00 Pulse Rate 67 10/19/17 10:00 Respiratory Rate 18 10/19/17 10:00 Blood Pressure 98/67 10/19/17 10:00 O2 Sat by Pulse Oximetry (%) 98 10/19/17 09:00 Constitutional: Yes: No Distress, Calm Cardiovascular: Yes: Regular Rate and Rhythm Respiratory: Yes: Regular, CTA Bilaterally Gastrointestinal: Yes: Normal Bowel Sounds, Soft Musculoskeletal: Yes: WNL Extremities: Yes: Erythema (improving), Other (pain better) Neurological: Yes: Alert, Oriented Psychiatric: Yes: Alert Labs: CBC, BMP 10/18/17 08:00 10/16/17 06:00 INR, PTT INR 0.95 (0.82-1.09) 10/13/17 14:05 Assessment/Plan onchomycosis b/l leg cellulitis edema of the legs culture of the organism noted plan continue current mgmt changed abx to tigey awaiting sensitivities on them elevation of the legs will need at lest 2 weeks
[2017-10-19] MEDS: oxyCODONE HCL 5 MG TABLET PO PRN ×3 (13:50→23:28)
[2017-10-19] MEDS: TIGECYCLINE 50 MG in DEXTROSE 5%-WATER - 100 ML IVPB SCH ×2 (14:45→21:50)
--- NOTE | 2017-10-19 16:48 | PN ---
Teaching Attending Note Name of Resident: Jasmeet Vargas ATTENDING PHYSICIAN STATEMENT I saw and evaluated the patient. I reviewed the resident's note and discussed the case with the resident. I agree with the resident's findings and plan as documented. SUBJECTIVE: Patient has no complaints. OBJECTIVE: Vital Signs Period Temp Pulse Resp BP Sys/Merrill Pulse Ox Last 24 Hr 98.4 F-99.1 F 64-70 18-21 98-133/66-81 98-98 HEART: S1S2, RRR LUNGS: Clear ABDOMEN: Obese, soft, non-tender, non-distended, normal BS EXTREMITIES: Trace edema BLE with chronic changes, decreasing erythema Current Medications Generic Name Dose Route Start Last Admin Trade Name Freq PRN Reason Stop Dose Admin Acetaminophen 650 mg 10/13/17 22:05 10/19/17 13:50 Tylenol - PO 650 mg Q6HPO [facility] Administration Aripiprazole 5 mg 10/14/17 10:00 10/19/17 10:14 Abilify PO 5 mg DAILY [facility] Administration Atorvastatin Calcium 40 mg 10/13/17 22:00 10/18/17 21:25 Lipitor - PO 40 mg HS [facility] Administration Bacitracin 1 applic 10/18/17 10:00 10/19/17 10:16 Bacitracin - TP 1 applic DAILY [facility] Administration Baclofen 20 mg 10/14/17 22:00 10/19/17 13:50 Lioresal - PO 20 mg TID [facility] Administration Bupropion HCl 150 mg 10/14/17 10:00 10/19/17 10:16 Wellbutrin Xl - PO 150 mg DAILY [facility] Administration Clonazepam 2 mg 10/14/17 07:00 10/19/17 06:55 Klonopin - PO 2 mg AM [facility] Administration Clonazepam 2 mg 10/18/17 22:00 10/18/17 21:25 Klonopin - PO 2 mg HS [facility] Administration Docusate Sodium 100 mg 10/14/17 17:00 10/19/17 10:14 Colace - PO 100 mg DAILY [facility] Administration Heparin Sodium (Porcine) 5,000 unit 10/14/17 06:00 10/19/17 13:52 Heparin - SQ 5,000 unit TID [facility] Administration Tigecycline 50 mg/ Dextrose 100 mls @ 100 mls/hr 10/19/17 13:15 10/19/17 14: 45 IVPB 100 mls/hr BID [facility] Administration Protocol Levothyroxine Sodium 100 mcg/ 175 mcg 10/14/17 07:00 10/19/17 06:43 Levothyroxine Sodium 75 mcg PO 175 mcg DAILY@0700 [facility] Administration Nystatin 1 applic 10/13/17 22:00 10/19/17 10:16 Mycostatin Cream - TP 1 applic BID [facility] Administration Oxycodone HCl 5 mg 10/16/17 15:35 10/19/17 13:50 Roxicodone - PO 5 mg Q4H PRN Administration pain 6-10 Pantoprazole Sodium 40 mg 10/14/17 10:00 10/19/17 10:15 Protonix - PO 40 mg DAILY [facility] Administration Polyethylene Glycol 17 gm 10/14/17 17:00 10/19/17 10:16 Miralax (For Daily Use) - PO 17 grams DAILY [facility] Administration Senna 1 tab 10/14/17 22:00 10/19/17 10:15 Senna - PO 1 tab BID [facility] Administration Trazodone HCl 100 mg 10/13/17 22:00 10/18/17 21:26 Desyrel - PO 100 mg HS [facility] Administration Venlafaxine HCl 150 mg 10/14/17 10:00 10/19/17 10:14 Effexor Xr - PO 150 mg DAILY [facility] Administration ASSESSMENT AND PLAN: This is a 61 year old woman with a history of HTN, hyperlipidemia, hypothyroidism, depression, anxiety, constipation, obesity who presented to the ED with swelling and redness of both legs. 1. Bilateral leg cellulitis and tinea pedis - Wound culture growing Acinetobacter and coagulase negative Staph - Continue Tygacil, Nystatin cream 2. HTN 3. Hyperlipidemia - Continue Lipitor 4. Depression with anxiety - Continue Effexor XR, Trazodone, Wellbutrin XL, Abilify, Klonopin 5. Constipation - Continue Colace, Senna, Miralax 6. Chronic back pain - Continue Baclofen, oxycodone as needed 7. Hypothyroidism - Continue Synthroid 8. Morbid obesity with BMI 40.1
--- NOTE | 2017-10-19 19:06 | PN ---
Physical Exam: SUBJECTIVE: No complaints voiced currently. Curious about returning home and timeline surrounding her return. OBJECTIVE: Vital Signs Period Temp Pulse Resp BP Sys/Merrill Pulse Ox Last 24 Hr 98.4 F-98.7 F 64-70 18-20 98-121/66-76 98-98 GENERAL: NAD, awake, alert, lying in bed. HEENT: NC/AT, EOMI, ZO, sclera anicteric, moist mucosa, no JVD LUNGS: CTA bilaterally, no wheezes, no crackles, no accessory muscle use. HEART: RRR, S1, S2 without murmur ABDOMEN: Soft, obese, nondistended, mildly tender to deep palpation at sites of heparin injections (no erythema), umbilical hernia noted, no guarding, no suprapubic tenderness, no hepatomegaly. EXTREMITIES: 2+ DP pulses, fungal infection of b/l toes, markedly receding erythema to b/l legs with bacitracin applied to legs. Currently remain warm, however continue to be mildly painful. PSYCH: Normal mood, normal affect. SKIN: Warm-Hot, See EXT exam Active Medications Generic Name Dose Route Start Last Admin Trade Name Freq PRN Reason Stop Dose Admin Acetaminophen 650 mg 10/13/17 22:05 10/19/17 17:22 Tylenol - PO 650 mg Q6HPO [facility] Administration Aripiprazole 5 mg 10/14/17 10:00 10/19/17 10:14 Abilify PO 5 mg DAILY [facility] Administration Atorvastatin Calcium 40 mg 10/13/17 22:00 10/18/17 21:25 Lipitor - PO 40 mg HS [facility] Administration Bacitracin 1 applic 10/18/17 10:00 10/19/17 10:16 Bacitracin - TP 1 applic DAILY [facility] Administration Baclofen 20 mg 10/14/17 22:00 10/19/17 13:50 Lioresal - PO 20 mg TID [facility] Administration Bupropion HCl 150 mg 10/14/17 10:00 10/19/17 10:16 Wellbutrin Xl - PO 150 mg DAILY [facility] Administration Clonazepam 2 mg 10/14/17 07:00 10/19/17 06:55 Klonopin - PO 2 mg AM [facility] Administration Clonazepam 2 mg 10/18/17 22:00 10/18/17 21:25 Klonopin - PO 2 mg HS [facility] Administration Docusate Sodium 100 mg 10/14/17 17:00 10/19/17 10:14 Colace - PO 100 mg DAILY [facility] Administration Heparin Sodium (Porcine) 5,000 unit 10/14/17 06:00 10/19/17 13:52 Heparin - SQ 5,000 unit TID [facility] Administration Tigecycline 50 mg/ Dextrose 100 mls @ 100 mls/hr 10/19/17 13:15 10/19/17 14: 45 IVPB 100 mls/hr BID [facility] Administration Protocol Levothyroxine Sodium 100 mcg/ 175 mcg 10/14/17 07:00 10/19/17 06:43 Levothyroxine Sodium 75 mcg PO 175 mcg DAILY@0700 [facility] Administration Nystatin 1 applic 10/13/17 22:00 10/19/17 10:16 Mycostatin Cream - TP 1 applic BID [facility] Administration Oxycodone HCl 5 mg 10/16/17 15:35 10/19/17 17:48 Roxicodone - PO 5 mg Q4H PRN Administration pain 6-10 Pantoprazole Sodium 40 mg 10/14/17 10:00 10/19/17 10:15 Protonix - PO 40 mg DAILY [facility] Administration Polyethylene Glycol 17 gm 10/14/17 17:00 10/19/17 10:16 Miralax (For Daily Use) - PO 17 grams DAILY [facility] Administration Senna 1 tab 10/14/17 22:00 10/19/17 10:15 Senna - PO 1 tab BID [facility] Administration Trazodone HCl 100 mg 10/13/17 22:00 10/18/17 21:26 Desyrel - PO 100 mg HS [facility] Administration Venlafaxine HCl 150 mg 10/14/17 10:00 10/19/17 10:14 Effexor Xr - PO 150 mg DAILY [facility] Administration ASSESSMENT/PLAN: 1) Lower extremity cellulitis b/l --Wound culture of LLE showing highly resistant acinterobacter --ID on board: --Highly sensitive to tigecycline! --Tigey to continue --Isolation precautions to continue --Continue nystatin cream for tinea pedis 2) History of depression --Continue Effexor 150mg qDaily --Continue Trazodone 100mg PO HS --Continue Wellbutrin 150mg --Continue Klonopin 2mg PO AM and 2mg PO HS 3) Chronic back pain --Continue Baclofen --Continue Tylenol --Continue Oxycodone 5mg q4h PRN for pain 6-10 4) Constipation with previous fecal impaction --Likely long-term opiate use --Continue Senna 1 tab BID --Continue Miralax 17gm qDaily --Continue Colace 100mg qDaily FEN: Fluids: None currently; euvolemic and tolerating PO Electrolyte abnormaltiies: No BMP today Nutrition: Fat-Controlled diet PPX: DVT - Heparin SQ GI - Protonix 40mg IVP Dispo: Continue M/S monitoring Case discussed with Dr. Efe Vargas, DO - IM PGY-1 Visit type - Emergency Visit Emergency Visit: No - New Patient This patient is new to me today: No - Critical Care Critical Care patient: No
[2017-10-19] MEDS: ATORVASTATIN CA 40 MG TABLET (FP) PO SCH (21:44)
[2017-10-19] MEDS ORDERED: traZODone HCL 50 MG TABLET (FP) ONE (21:46)
[2017-10-19] MEDS: traZODone HCL 100 MG TABLET (FP) PO SCH (21:49)
[2017-10-20] MEDS ORDERED: LEVOTHYROXINE NA 100 MCG TABLET (FP) ONE (05:25)
[2017-10-20] MEDS ORDERED: LEVOTHYROXINE NA 75 MCG TABLET (FP) ONE (05:25)
[2017-10-20] MEDS: ACETAMINOPHEN 325 MG TABLET (FP) PO SCH ×3 (05:55→17:20)
[2017-10-20] MEDS: HEPARIN NA (PORCINE) 5,000 UNITS/ML 1ML VIAL SQ SCH ×3 (05:56→22:12)
[2017-10-20] MEDS: BACLOFEN 10 MG TABLET (FP) PO SCH ×3 (05:56→22:12)
[2017-10-20] MEDS: oxyCODONE HCL 5 MG TABLET PO PRN ×5 (06:02→22:30)
[2017-10-20] MEDS: LEVOTHYROXINE 100 MCG, LEVOTHYROXINE 75 MCG PO SCH (06:06)
[2017-10-20] MEDS: clonazePAM 0.5 MG TABLET PO SCH ×2 (06:06→22:11)
[2017-10-20 07:44] LABS: HEMATOCRIT 28.8 % (32.4-45.2); HEMOGLOBIN 9.7 GM/dL (10.7-15.3); MCH 30.9 pg (25.7-33.7); MCHC 33.7 g/dl (32.0-36.0); MEAN CELL VOLUME 91.7 fl (80-96); MEAN PLT VOLUME 7.9 fl (7.5-11.1); PLATELET COUNT 252 K/MM3 (134-434); RBC 3.14 M/mm3 (3.60-5.2); RDW 15.7 % (11.6-15.6); WHITE BLOOD COUNT 6.4 K/mm3 (4.0-10.0)
[2017-10-20 08:16] LABS: ANION GAP 7 (8-16); BLOOD UREA NITROGEN 25 mg/dL (7-18); CALCIUM 8.6 mg/dL (8.5-10.1); CHLORIDE 107 mmol/L (98-107); CO2 26 mmol/L (21-32); CREATININE 0.8 mg/dL (0.55-1.02); GLUCOSE,RANDOM 76 mg/dL (74-106); POTASSIUM 4.1 mmol/L (3.5-5.1); SODIUM 140 mmol/L (136-145)
[2017-10-20] MEDS: TIGECYCLINE 50 MG in DEXTROSE 5%-WATER - 100 ML IVPB SCH ×2 (09:02→22:11)
[2017-10-20] MEDS: VENLAFAXINE HCL 75 MG E.R. CAPSULES (FP) PO SCH (09:03)
[2017-10-20] MEDS: ARIPiprazole 5 MG TABLET (FP) PO SCH (09:04)
[2017-10-20] MEDS: BACITRACIN 15 GM TUBE TOPICAL OINTMENT TP SCH (09:04)
[2017-10-20] MEDS: SENNOSIDES 8.6MG TABLET (FP) PO SCH ×2 (09:05→22:12)
[2017-10-20] MEDS: DOCUSATE SODIUM 100 MG CAPSULE (FP) PO SCH (09:05)
[2017-10-20] MEDS: PANTOPRAZOLE 40 MG TABLET (FP) PO SCH (09:05)
[2017-10-20] MEDS: NYSTATIN 100,000 UNIT/GM TOPICAL CREAM 15 GM TUBE TP SCH ×2 (09:06→22:13)
[2017-10-20] MEDS: POLYETHYLENE GLYCOL 3350 119 GM BTL PO SCH (09:06)
--- NOTE | 2017-10-20 09:06 | PN ---
Physical Exam: SUBJECTIVE: No events. Curious about discharge planning. OBJECTIVE: Vital Signs Period Temp Pulse Resp BP Sys/Merrill Pulse Ox Last 24 Hr 98.7 F-98.7 F 59-70 18-20 98-135/67-78 98 GENERAL: NAD, awake, alert, lying in bed. HEENT: NC/AT, EOMI, ZO, sclera anicteric, moist mucosa, no JVD LUNGS: CTA bilaterally, no wheezes, no crackles, no accessory muscle use. HEART: RRR, S1, S2 without murmur ABDOMEN: Soft, obese, nondistended, mildly tender to deep palpation at sites of heparin injections (no erythema), umbilical hernia noted, no guarding, no suprapubic tenderness, no hepatomegaly. EXTREMITIES: 2+ DP pulses, fungal infection of b/l toes, markedly receding erythema to b/l legs with bacitracin applied to legs. Currently remain warm, however continue to be mildly painful. PSYCH: Normal mood, normal affect. SKIN: Warm-Hot, See EXT exam Laboratory Results - last 24 hr 10/20/17 10/20/17 06:30 06:30 WBC 6.4 RBC 3.14 L Hgb 9.7 L Hct 28.8 L MCV 91.7 MCH 30.9 MCHC 33.7 RDW 15.7 H Plt Count 252 MPV 7.9 Sodium 140 Potassium 4.1 Chloride 107 Carbon Dioxide 26 Anion Gap 7 L BUN 25 H Creatinine 0.8 Random Glucose 76 Calcium 8.6 Active Medications Generic Name Dose Route Start Last Admin Trade Name Freq PRN Reason Stop Dose Admin Acetaminophen 650 mg 10/13/17 22:05 10/20/17 05:55 Tylenol - PO 650 mg Q6HPO [facility] Administration Aripiprazole 5 mg 10/14/17 10:00 10/19/17 10:14 Abilify PO 5 mg DAILY [facility] Administration Atorvastatin Calcium 40 mg 10/13/17 22:00 10/19/17 21:44 Lipitor - PO 40 mg HS [facility] Administration Bacitracin 1 applic 10/18/17 10:00 10/19/17 10:16 Bacitracin - TP 1 applic DAILY [facility] Administration Baclofen 20 mg 10/14/17 22:00 10/20/17 05:56 Lioresal - PO 20 mg TID [facility] Administration Bupropion HCl 150 mg 10/14/17 10:00 10/19/17 10:16 Wellbutrin Xl - PO 150 mg DAILY [facility] Administration Clonazepam 2 mg 10/14/17 07:00 10/20/17 06:06 Klonopin - PO 2 mg AM [facility] Administration Clonazepam 2 mg 10/18/17 22:00 10/19/17 21:49 Klonopin - PO 2 mg HS [facility] Administration Docusate Sodium 100 mg 10/14/17 17:00 10/19/17 10:14 Colace - PO 100 mg DAILY [facility] Administration Heparin Sodium (Porcine) 5,000 unit 10/14/17 06:00 10/20/17 05:56 Heparin - SQ 5,000 unit TID [facility] Administration Tigecycline 50 mg/ Dextrose 100 mls @ 100 mls/hr 10/19/17 13:15 10/19/17 21: 50 IVPB 100 mls/hr BID [facility] Administration Protocol Levothyroxine Sodium 100 mcg/ 175 mcg 10/14/17 07:00 10/20/17 06:06 Levothyroxine Sodium 75 mcg PO 175 mcg DAILY@0700 [facility] Administration Nystatin 1 applic 10/13/17 22:00 10/19/17 21:50 Mycostatin Cream - TP 1 applic BID [facility] Administration Oxycodone HCl 5 mg 10/16/17 15:35 10/20/17 06:02 Roxicodone - PO 5 mg Q4H PRN Administration pain 6-10 Pantoprazole Sodium 40 mg 10/14/17 10:00 10/19/17 10:15 Protonix - PO 40 mg DAILY [facility] Administration Polyethylene Glycol 17 gm 10/14/17 17:00 10/19/17 10:16 Miralax (For Daily Use) - PO 17 grams DAILY [facility] Administration Senna 1 tab 10/14/17 22:00 10/19/17 21:57 Senna - PO Not Given BID [facility] Trazodone HCl 100 mg 10/13/17 22:00 10/19/17 21:49 Desyrel - PO 100 mg HS [facility] Administration Venlafaxine HCl 150 mg 10/14/17 10:00 10/19/17 10:14 Effexor Xr - PO 150 mg DAILY [facility] Administration ASSESSMENT/PLAN: 1) Lower extremity cellulitis b/l --Wound culture of LLE showing highly resistant acinterobacter --ID on board: --Highly sensitive to tigecycline! --Tigey to continue --Isolation precautions to continue --Continue nystatin cream for tinea pedis 2) History of depression --Continue Effexor 150mg qDaily --Continue Trazodone 100mg PO HS --Continue Wellbutrin 150mg --Continue Klonopin 2mg PO AM and 2mg PO HS 3) Chronic back pain --Continue Baclofen --Continue Tylenol --Continue Oxycodone 5mg q4h PRN for pain 6-10 4) Constipation with previous fecal impaction --Likely long-term opiate use --Continue Senna 1 tab BID --Continue Miralax 17gm qDaily --Continue Colace 100mg qDaily FEN: Fluids: None currently; euvolemic and tolerating PO Electrolyte abnormaltiies: No BMP today Nutrition: Fat-Controlled diet PPX: DVT - Heparin SQ GI - Protonix 40mg IVP Dispo: Continue M/S monitoring Case discussed with Dr. Efe Vargas, DO - IM PGY-1 Visit type - Emergency Visit Emergency Visit: No - New Patient This patient is new to me today: No - Critical Care Critical Care patient: No
--- NOTE | 2017-10-20 11:57 | PN ---
Progress Note, Physician History of Present Illness: stable no new issues legs doing better - Current Medication List Current Medications: Active Medications Acetaminophen (Tylenol -) 650 mg PO Q6HPO [facility] Last Admin: 10/20/17 11:51 Dose: 650 mg Aripiprazole (Abilify) 5 mg PO DAILY [facility] Last Admin: 10/20/17 09:04 Dose: 5 mg Atorvastatin Calcium (Lipitor -) 40 mg PO HS [facility] Last Admin: 10/19/17 21:44 Dose: 40 mg Bacitracin (Bacitracin -) 1 applic TP DAILY [facility] Last Admin: 10/20/17 09:04 Dose: 1 applic Baclofen (Lioresal -) 20 mg PO TID [facility] Last Admin: 10/20/17 05:56 Dose: 20 mg Bupropion HCl (Wellbutrin Xl -) 150 mg PO DAILY [facility] Last Admin: 10/20/17 09:05 Dose: 150 mg Clonazepam (Klonopin -) 2 mg PO AM [facility] Last Admin: 10/20/17 06:06 Dose: 2 mg Clonazepam (Klonopin -) 2 mg PO HS [facility] Last Admin: 10/19/17 21:49 Dose: 2 mg Docusate Sodium (Colace -) 100 mg PO DAILY [facility] Last Admin: 10/20/17 09:05 Dose: 100 mg Heparin Sodium (Porcine) (Heparin -) 5,000 unit SQ TID [facility] Last Admin: 10/20/17 05:56 Dose: 5,000 unit Tigecycline 50 mg/ Dextrose 100 mls @ 100 mls/hr IVPB BID [facility]; Protocol Last Admin: 10/20/17 09:02 Dose: 100 mls/hr Levothyroxine Sodium 100 mcg/ (Levothyroxine Sodium 75 mcg) 175 mcg PO DAILY@ 0700 [facility] Last Admin: 10/20/17 06:06 Dose: 175 mcg Nystatin (Mycostatin Cream -) 1 applic TP BID [facility] Last Admin: 10/20/17 09:06 Dose: 1 applic Oxycodone HCl (Roxicodone -) 5 mg PO Q4H PRN PRN Reason: pain 6-10 Last Admin: 10/20/17 10:35 Dose: 5 mg Pantoprazole Sodium (Protonix -) 40 mg PO DAILY [facility] Last Admin: 10/20/17 09:05 Dose: 40 mg Polyethylene Glycol (Miralax (For Daily Use) -) 17 gm PO DAILY [facility] Last Admin: 10/20/17 09:06 Dose: 17 grams Senna (Senna -) 1 tab PO BID [facility] Last Admin: 10/20/17 09:05 Dose: 1 tab Trazodone HCl (Desyrel -) 100 mg PO HS [facility] Last Admin: 10/19/17 21:49 Dose: 100 mg Venlafaxine HCl (Effexor Xr -) 150 mg PO DAILY [facility] Last Admin: 10/20/17 09:03 Dose: 150 mg - Objective Vital Signs: Vital Signs Temperature 98.7 F 10/20/17 05:53 Pulse Rate 59 L 10/20/17 05:53 Respiratory Rate 20 10/20/17 05:53 Blood Pressure 128/75 10/20/17 05:53 O2 Sat by Pulse Oximetry (%) 98 10/19/17 20:07 Constitutional: Yes: No Distress, Calm Cardiovascular: Yes: Regular Rate and Rhythm Respiratory: Yes: Regular, CTA Bilaterally Gastrointestinal: Yes: Normal Bowel Sounds, Soft Musculoskeletal: Yes: Other Extremities: Yes: Erythema (resolving), Other Integumentary: Yes: Other Wound/Incision: Yes: Other Neurological: Yes: Alert, Oriented Labs: CBC, BMP 10/20/17 06:30 10/20/17 06:30 INR, PTT INR 0.95 (0.82-1.09) 10/13/17 14:05 Assessment/Plan onchomycosis b/l leg cellulitis edema of the legs culture of the organism noted plan continue abx patient will need abx for 2 weeks elevation of legs rest as per the team
--- NOTE | 2017-10-20 16:08 | PN ---
Teaching Attending Note Name of Resident: Jasmeet Vargas ATTENDING PHYSICIAN STATEMENT I saw and evaluated the patient. I reviewed the resident's note and discussed the case with the resident. I agree with the resident's findings and plan as documented. SUBJECTIVE: No complaints. She wants to go home. OBJECTIVE: Vital Signs Period Temp Pulse Resp BP Sys/Merrill Pulse Ox Last 24 Hr 98.5 F-98.7 F 59-77 18-20 107-135/62-78 98-98 HEART: S1S2, RRR LUNGS: Clear ABDOMEN: Obese, soft, non-tender, non-distended, normal BS EXTREMITIES: Trace edema BLE with chronic changes Laboratory Results - last 24 hr 10/20/17 10/20/17 06:30 06:30 WBC 6.4 RBC 3.14 L Hgb 9.7 L Hct 28.8 L MCV 91.7 MCH 30.9 MCHC 33.7 RDW 15.7 H Plt Count 252 MPV 7.9 Sodium 140 Potassium 4.1 Chloride 107 Carbon Dioxide 26 Anion Gap 7 L BUN 25 H Creatinine 0.8 Random Glucose 76 Calcium 8.6 Current Medications Generic Name Dose Route Start Last Admin Trade Name Freq PRN Reason Stop Dose Admin Acetaminophen 650 mg 10/13/17 22:05 10/20/17 11:51 Tylenol - PO 650 mg Q6HPO [facility] Administration Aripiprazole 5 mg 10/14/17 10:00 10/20/17 09:04 Abilify PO 5 mg DAILY [facility] Administration Atorvastatin Calcium 40 mg 10/13/17 22:00 10/19/17 21:44 Lipitor - PO 40 mg HS [facility] Administration Bacitracin 1 applic 10/18/17 10:00 10/20/17 09:04 Bacitracin - TP 1 applic DAILY [facility] Administration Baclofen 20 mg 10/14/17 22:00 10/20/17 14:22 Lioresal - PO 20 mg TID [facility] Administration Bupropion HCl 150 mg 10/14/17 10:00 10/20/17 09:05 Wellbutrin Xl - PO 150 mg DAILY [facility] Administration Clonazepam 2 mg 10/14/17 07:00 10/20/17 06:06 Klonopin - PO 2 mg AM [facility] Administration Clonazepam 2 mg 10/18/17 22:00 10/19/17 21:49 Klonopin - PO 2 mg HS [facility] Administration Docusate Sodium 100 mg 05/18/18 17:00 10/20/17 09:05 Colace - PO 100 mg DAILY [facility] Administration Heparin Sodium (Porcine) 5,000 unit 10/14/17 06:00 10/20/17 14:22 Heparin - SQ 5,000 unit TID [facility] Administration Tigecycline 50 mg/ Dextrose 100 mls @ 100 mls/hr 10/19/17 13:15 10/20/17 09: 02 IVPB 100 mls/hr BID [facility] Administration Protocol Levothyroxine Sodium 100 mcg/ 175 mcg 10/14/17 07:00 10/20/17 06:06 Levothyroxine Sodium 75 mcg PO 175 mcg DAILY@0700 [facility] Administration Nystatin 1 applic 10/13/17 22:00 10/20/17 09:06 Mycostatin Cream - TP 1 applic BID [facility] Administration Oxycodone HCl 5 mg 10/16/17 15:35 10/20/17 14:22 Roxicodone - PO 5 mg Q4H PRN Administration pain 6-10 Pantoprazole Sodium 40 mg 10/14/17 10:00 10/20/17 09:05 Protonix - PO 40 mg DAILY [facility] Administration Polyethylene Glycol 17 gm 10/14/17 17:00 10/20/17 09:06 Miralax (For Daily Use) - PO 17 grams DAILY [facility] Administration Senna 1 tab 10/14/17 22:00 10/20/17 09:05 Senna - PO 1 tab BID [facility] Administration Trazodone HCl 100 mg 10/13/17 22:00 10/19/17 21:49 Desyrel - PO 100 mg HS [facility] Administration Venlafaxine HCl 150 mg 10/14/17 10:00 10/20/17 09:03 Effexor Xr - PO 150 mg DAILY [facility] Administration ASSESSMENT AND PLAN: This is a 61 year old woman with a history of HTN, hyperlipidemia, hypothyroidism, depression, anxiety, constipation, obesity who presented to the ED with swelling and redness of both legs. 1. Bilateral leg cellulitis and tinea pedis - Wound culture growing Acinetobacter and coagulase negative Staph - Continue Tygacil, Nystatin cream 2. HTN 3. Hyperlipidemia - Continue Lipitor 4. Depression with anxiety - Continue Effexor XR, Trazodone, Wellbutrin XL, Abilify, Klonopin 5. Constipation - Continue Colace, Senna, Miralax 6. Chronic back pain - Continue Baclofen, oxycodone as needed 7. Hypothyroidism - Continue Synthroid 8. Obesity with BMI 38.2
[2017-10-20] MEDS ORDERED: traZODone HCL 50 MG TABLET (FP) ONE (22:06)
[2017-10-20] MEDS ORDERED: PT OWN MED DRAWER 7, Y5N ONE (22:07)
[2017-10-20] MEDS: traZODone HCL 100 MG TABLET (FP) PO SCH (22:12)
[2017-10-20] MEDS: ATORVASTATIN CA 40 MG TABLET (FP) PO SCH (22:12)
[2017-10-21] MEDS: ACETAMINOPHEN 325 MG TABLET (FP) PO SCH ×2 (00:10→06:56)
[2017-10-21] MEDS ORDERED: LEVOTHYROXINE NA 75 MCG TABLET (FP) ONE (06:07)
[2017-10-21] MEDS ORDERED: LEVOTHYROXINE NA 100 MCG TABLET (FP) ONE (06:07)
[2017-10-21] MEDS: clonazePAM 0.5 MG TABLET PO SCH (06:56)
[2017-10-21] MEDS: BACLOFEN 10 MG TABLET (FP) PO SCH (06:56)
[2017-10-21] MEDS: LEVOTHYROXINE 100 MCG, LEVOTHYROXINE 75 MCG PO SCH (06:57)
[2017-10-21 08:52] VITALS: BP 114/60; PULSE 73; TEMP 98.4
[2017-10-21] MEDS ORDERED: PT OWN MED DRAWER 7, Y5N ONE (09:03)
[2017-10-21] MEDS: DOCUSATE SODIUM 100 MG CAPSULE (FP) PO SCH (09:06)
[2017-10-21] MEDS: PANTOPRAZOLE 40 MG TABLET (FP) PO SCH (09:06)
[2017-10-21] MEDS: oxyCODONE HCL 5 MG TABLET PO PRN (09:06)
[2017-10-21] MEDS: SENNOSIDES 8.6MG TABLET (FP) PO SCH (09:07)
[2017-10-21] MEDS: ARIPiprazole 5 MG TABLET (FP) PO SCH (09:08)
[2017-10-21] MEDS: VENLAFAXINE HCL 75 MG E.R. CAPSULES (FP) PO SCH (09:09)
[2017-10-21] MEDS: BACITRACIN 15 GM TUBE TOPICAL OINTMENT TP SCH (09:10)
[2017-10-21] MEDS: NYSTATIN 100,000 UNIT/GM TOPICAL CREAM 15 GM TUBE TP SCH (09:10)
[2017-10-21] MEDS: POLYETHYLENE GLYCOL 3350 119 GM BTL PO SCH (09:16)
[2017-10-21] MEDS: TIGECYCLINE 50 MG in DEXTROSE 5%-WATER - 100 ML IVPB SCH (09:17)
[2017-10-21] MEDS ORDERED: PICC LINE 8 ML FLUSH PROTOCOL IVPUSH PRN (10:07)
--- NOTE | 2017-10-21 12:43 | PN ---
Progress Note, Physician History of Present Illness: stable no new issues legs looking better no complaints - Current Medication List Current Medications: Active Medications Acetaminophen (Tylenol -) 650 mg PO Q6HPO [facility] Last Admin: 10/21/17 06:56 Dose: 650 mg Aripiprazole (Abilify) 5 mg PO DAILY [facility] Last Admin: 10/21/17 09:08 Dose: 5 mg Atorvastatin Calcium (Lipitor -) 40 mg PO HS [facility] Last Admin: 10/20/17 22:12 Dose: 40 mg Bacitracin (Bacitracin -) 1 applic TP DAILY [facility] Last Admin: 10/21/17 09:10 Dose: 1 applic Baclofen (Lioresal -) 20 mg PO TID [facility] Last Admin: 10/21/17 06:56 Dose: 20 mg Bupropion HCl (Wellbutrin Xl -) 150 mg PO DAILY [facility] Last Admin: 10/21/17 09:07 Dose: 150 mg Clonazepam (Klonopin -) 2 mg PO AM [facility] Last Admin: 10/21/17 06:56 Dose: 2 mg Clonazepam (Klonopin -) 2 mg PO HS [facility] Last Admin: 10/20/17 22:11 Dose: 2 mg Docusate Sodium (Colace -) 100 mg PO DAILY [facility] Last Admin: 10/21/17 09:06 Dose: 100 mg IV Flush (Picc Line Flush) 8 ml IVPUSH PRN PRN PRN Reason: Protocol Tigecycline 50 mg/ Dextrose 100 mls @ 100 mls/hr IVPB BID [facility]; Protocol Last Admin: 10/21/17 09:17 Dose: 100 mls/hr Levothyroxine Sodium 100 mcg/ (Levothyroxine Sodium 75 mcg) 175 mcg PO DAILY@ 0700 [facility] Last Admin: 10/21/17 06:57 Dose: 175 mcg Nystatin (Mycostatin Cream -) 1 applic TP BID [facility] Last Admin: 10/21/17 09:10 Dose: 1 applic Oxycodone HCl (Roxicodone -) 5 mg PO Q4H PRN PRN Reason: pain 6-10 Last Admin: 10/21/17 09:06 Dose: 5 mg Pantoprazole Sodium (Protonix -) 40 mg PO DAILY [facility] Last Admin: 10/21/17 09:06 Dose: 40 mg Polyethylene Glycol (Miralax (For Daily Use) -) 17 gm PO DAILY [facility] Last Admin: 10/21/17 09:16 Dose: 17 grams Senna (Senna -) 1 tab PO BID [facility] Last Admin: 10/21/17 09:07 Dose: Not Given Trazodone HCl (Desyrel -) 100 mg PO HS [facility] Last Admin: 10/20/17 22:12 Dose: 100 mg Venlafaxine HCl (Effexor Xr -) 150 mg PO DAILY [facility] Last Admin: 10/21/17 09:09 Dose: 150 mg - Objective Vital Signs: Vital Signs Temperature 98.4 F 10/21/17 08:40 Pulse Rate 73 10/21/17 08:40 Respiratory Rate 18 10/21/17 09:00 Blood Pressure 114/60 10/21/17 08:40 O2 Sat by Pulse Oximetry (%) 97 10/21/17 09:00 Constitutional: Yes: No Distress, Calm Cardiovascular: Yes: Regular Rate and Rhythm Respiratory: Yes: Regular, CTA Bilaterally Gastrointestinal: Yes: Normal Bowel Sounds, Soft Musculoskeletal: Yes: Other Extremities: Yes: Other Integumentary: Yes: Other Wound/Incision: Yes: Other (improving draiange minimal) Neurological: Yes: Alert, Oriented Psychiatric: Yes: Alert, Oriented Labs: CBC, BMP 10/20/17 06:30 10/20/17 06:30 INR, PTT INR 0.95 (0.82-1.09) 10/13/17 14:05 Assessment/Plan onchomycosis b/l leg cellulitis edema of the legs culture of the organism noted plan continue abx patient will need abx for 2 weeks then follow up in wound care center elevation of the legs wound care
--- NOTE | 2017-10-21 18:26 | PN ---
Teaching Attending Note Name of Resident: Jasmeet Vargas ATTENDING PHYSICIAN STATEMENT I saw and evaluated the patient. I reviewed the resident's note and discussed the case with the resident. I agree with the resident's findings and plan as documented. SUBJECTIVE: No complaints. OBJECTIVE: Vital Signs Period Temp Pulse Resp BP Sys/Merrill Pulse Ox Last 24 Hr 98.4 F-98.6 F 70-73 16-18 114-119/60-65 97-97 HEART: S1S2, RRR LUNGS: Clear ABDOMEN: Obese, soft, non-tender, non-distended, normal BS EXTREMITIES: Trace edema BLE with chronic changes ASSESSMENT AND PLAN: This is a 61 year old woman with a history of HTN, hyperlipidemia, hypothyroidism, depression, anxiety, constipation, obesity who presented to the ED with swelling and redness of both legs. 1. Bilateral leg cellulitis and tinea pedis - Wound culture growing Acinetobacter and coagulase negative Staph - Continue Tygacil x 2 weeks, Nystatin cream 2. HTN 3. Hyperlipidemia - Continue Lipitor 4. Depression with anxiety - Continue Effexor XR, Trazodone, Wellbutrin XL, Abilify, Klonopin 5. Constipation - Continue Colace, Senna, Miralax 6. Chronic back pain - Continue Baclofen, oxycodone as needed 7. Hypothyroidism - Continue Synthroid 8. Obesity with BMI 38.2 9. Disposition - Ok for discharge to SNF with PICC to complete 2 weeks of Tygacil
--- NOTE | 2017-10-25 23:59 | DS ---
Physical Exam: SUBJECTIVE: No acute events. No complaints today OBJECTIVE: PHYSICAL EXAM GENERAL: NAD, awake, alert, lying in bed. HEENT: NC/AT, EOMI, ZO, sclera anicteric, moist mucosa, no JVD LUNGS: CTA bilaterally, no wheezes, no crackles, no accessory muscle use. HEART: RRR, S1, S2 without murmur ABDOMEN: Soft, obese, nondistended, mildly tender to deep palpation at sites of heparin injections (no erythema), umbilical hernia noted, no guarding, no suprapubic tenderness, no hepatomegaly. EXTREMITIES: 2+ DP pulses, fungal infection of b/l toes, markedly receding erythema to b/l legs with bacitracin applied to legs. Currently remain warm, however continue to be mildly painful. PSYCH: Normal mood, normal affect. SKIN: Warm-Hot, See EXT exam LABS Microbiology 10/14/17 19:30 Leg - Left Lower Gram Stain - Final 10/14/17 19:30 Leg - Left Lower Wound Culture - Final Acinetobacter Baumannii/Haemol Staphylococcus Coagulase Neg 10/13/17 14:40 Blood - Peripheral Venous Blood Culture - Final NO GROWTH AFTER 5 DAYS INCUBATION 10/13/17 14:40 Blood - Peripheral Venous Blood Culture - Final NO GROWTH AFTER 5 DAYS INCUBATION 10/14/17 19:30 Leg - Right Lower Gram Stain - Final 10/14/17 19:30 Leg - Right Lower Wound Culture - Final NO GROWTH OF AEROBIC ORGANISMS AFTER 48 HOURS INCUBATION 10/13/17 21:15 Urine - Urine Clean Catch Urine Culture - Final NO GROWTH OBTAINED HOSPITAL COURSE: Date of Admission:10/13/17 Date of Discharge: 10/25/17 Pt admitted on 10/13/16 after being brought in by ambulance from [facility] for worsening LE pain, swelling, and erythema found to have bilateral cellulitis. Pt was immediately placed on Vancomycin, Zosyn, however after unfortuante reaction with 103F after vancomycin administration was placed on Doxycycline 100mg BID. Blood cultures and wound cultures were obtained at this point. Pt was maintained on these antibiotics until her cultures were resolved with Acinetobacter Baumannii/Haemol which was highly resistant except to Tigecycline. Pt was then switched to Tigecycline and had marked improvement. Unfortunately during her hospital course she developed some abdominal distension which was suspicious for a pSBO. Pt received an abdominal CT scan with PO and IV contrast which showed copious amount of fecal retention. Pt was promptly placed on a bowel regiment and had her distention resolve with continued bowel movements. Currently pt is in stable condition with improvement of lower extremities and [facility]. She is to receive Tigecycline BID for 10 more days and is to have IV PICC line placed by radiology. She should continue to use bacitracin and CHAVEZ wraps on her legs in the interim as well. Pt is to follow-up with Dr. Gambino in the wound clinic here at [facility] and is to be followed by Dr. Dean and her primary medical doctor. Minutes to complete discharge: 35 Discharge Summary Reason For Visit: BILATERAL LE CELLULITITS Condition: Stable - Instructions Diet, Activity, Other Instructions: You were seen here for the infection of your skin in your lower legs. You were found to have a very resistant bacteria and was placed on appropriate antibiotics. Unfortunately you will need 10 more days of IV antibiotics through the special IV that radiology put in. MEDICATONS: You will need to continue Tigecycline 50mg in 100ml D5W IV TWICE DAILY for the next 10 days You should continue compressive chavez wraps with Bacitracin --Continue to keep your legs elevated FOLLOW-UP Please follow-up with Dr. Gambino in the wound care clinic at [facility] Please follow-up with your general medical doctor as well Please follow-up with Dr. Dean for your infection Referrals: Abel Dean MD [Staff Physician] - Darnell Gambino MD [Staff Physician] - Disposition: [facility] - Home Medications Comprehensive Discharge Medication List: Ambulatory Orders Aripiprazole [Abilify -] 5 mg PO DAILY 04/10/17 Atorvastatin Ca [Lipitor] 40 mg PO HS 04/10/17 Baclofen 20 mg PO TID 04/10/17 Bupropion HCl [Wellbutrin Sr] 150 mg PO DAILY 04/10/17 Clonazepam [Klonopin] 2 mg PO AM 04/10/17 Clonazepam [Klonopin] 4 mg PO HS 04/10/17 Docusate Sodium [Colace -] 100 mg PO TID 04/10/17 Furosemide [Lasix] 40 mg PO ASDIR 04/10/17 Magnesium Hydroxide [Milk of Magnesia] 30 ml PO HS 04/10/17 Trazodone HCl 100 mg PO HS 04/10/17 Venlafaxine HCl ER [Effexor Xr -] 150 mg PO DAILY 04/10/17 Levothyroxine [Synthroid -] 175 mcg PO DAILY 10/13/17 Pantoprazole Sodium [Protonix] 40 mg PO DAILY 10/13/17 Sennosides [Senna -] 2 tab PO HS 10/13/17 Acetaminophen [Tylenol .Regular Strength -] 650 mg PO Q6HPO PRN tablet Bacitracin - [Bacitracin Topical Ointment -] 1 applic TP DAILY tube 10/21/17 Nystatin Cream [Mycostatin Cream -] 1 applic TP BID applic 10/21/17 Picc Line Flush [Picc Line Flush -] 8 ml IVPUSH PRN PRN ml 10/21/17 Polyethylene Glycol 3350 [Miralax 119 gm Btl -] 17 gm PO DAILY bottle 10/21/17 Sennosides [Senna -] 1 tab PO BID tablet 10/21/17 Tigecycline 50 mg IV BID #1 vial 10/21/17 oxyCODONE HCL [Roxicodone -] 5 mg PO Q4H PRN tablet MDD 30 10/21/17 This patient is new to me today: No Emergency Visit: No Critical Care patient: No - Discharge Referral Referred to [facility] No
== END 2017-10-21 16:17 | DRG 383 ==
LOC: JER 11:16 → JERBED 18:30 → J6S 23:33 → JSAMEDAYSX 10-18 15:08 → J6S 10-18 15:09
PROVIDERS: ADMIT Internal Medicine; ATTEND Internal Medicine
PROC: 02HV33Z Insertion of Infusion Device into Superior Vena Cava, Percutaneous Approach (ICD-10-PCS; principal; 2017-10-21)
PROC: B518ZZA Fluoroscopy of Superior Vena Cava, Guidance (ICD-10-PCS; 2017-10-21)
DX: L03.115 Cellulitis of right lower limb (principal); L03.116 Cellulitis of left lower limb; E66.01 Morbid (severe) obesity due to excess calories; Z68.41 Body mass index [BMI] 40.0-44.9, adult; I10 Essential (primary) hypertension; E78.5 Hyperlipidemia, unspecified; E66.9 Obesity, unspecified; Z68.38 Body mass index [BMI] 38.0-38.9, adult; F17.210 Nicotine dependence, cigarettes, uncomplicated; K42.9 Umbilical hernia without obstruction or gangrene; B35.3 Tinea pedis; B35.1 Tinea unguium; Z91.14 Patient's other noncompliance with medication regimen; F32.9 Major depressive disorder, single episode, unspecified; E86.9 Volume depletion, unspecified; E03.9 Hypothyroidism, unspecified; R14.0 Abdominal distension (gaseous); F41.9 Anxiety disorder, unspecified; G89.29 Other chronic pain; M54.5 Low back pain; K59.03 Drug induced constipation; T40.0X5A Adverse effect of opium, initial encounter
CPT/HCPCS: 36415; 36569; 74018-TC-FY; 74177-TC; 75820-TC-FY; 77001-TC-FY; 80048; 80053; 81003; 83605; 83735; 84100; 85025; 85027; 85610; 87040; 87070; 87077; 87086; 87186; 87205; 93005; 93010; 93970-TC; 97116-GP; 97162-GP; 99282-25; C1751; J0475; J1644; J3243; J7030

== ENCOUNTER 2018-01-23 12:15 | Inpatient (IN) | payer OTHER ==
--- NOTE | 2018-01-23 12:37 | PDOC ---
History of Present Illness <Mar Esparza - Last Filed: 01/23/18 17:21> - General History Source: Patient Exam Limitations: No Limitations - History of Present Illness Initial Comments: 01/23/18 13:22 Pt is a 63 y/o F with a pmh of HLD, hypothyroidism, multiple bouts of cellulites (September 2017 most recent) presents to [facility] s/p injury to the LL extremity. Pt endorses she was at [place] and shop in [place] where she was trying to transfer from her electric scooter to her walker and fell onto inverted ankle. She was able to walk after she fell. The pain is rated 10/10. This occurred , she deferred medical treatment until today when the pain progressed. Denies cp, sob, nausea, vomiting, or chills. PMHX: as in HPI PSHX: 2 back surgeries (Degenerative Scoliosis) w/ yaron placement. Extensive Left leg operation 2/2 fracture (screw and plate insertion). Meds: Clonapin 2mg am and 4 mg pm, baclofen 20 mg qid, trazadone 200 mg qd, neurontin bid, synthroid, oxycodone 5 mg Q4H, Lipitor, Nexium. Allergies: Keflex, Sulfur, Ciprofloxacin, Clindamycin, Strawberrys. Tob: 4 Cig per day Etoh: No Alcohol use Rec drugs: None PCP: Nina Mtz. Living PhysJanene Garcia 01/23/18 13:51 01/23/18 13:53 01/23/18 15:03 01/23/18 18:41 Timing/Duration: constant Severity: mild <Schuyler Montano - Last Filed: 01/23/18 18:42> - General Chief Complaint: Injury Stated Complaint: ANKLE PAIN Time Seen by Provider: 01/23/18 12:36 Past History <Mar Esparza - Last Filed: 01/23/18 17:21> - Travel Traveled outside of the country in the last 30 days: No Close contact w/someone who was outside of country & ill: No - Past Medical History Anemia: Yes COPD: No Diabetes: Yes HTN: Yes Hypercholesterolemia: Yes Psychiatric Problems: Yes (anxiety, borderline pesonality, depression) Thyroid Disease: Yes - Surgical History Orthopedic Surgery: Yes (left leg, foot) - Suicide/Smoking/Psychosocial Hx Smoking History: Never smoked Have you smoked in the past 12 months: No Number of Cigarettes Smoked Daily: 4 Information on smoking cessation initiated: No Hx Alcohol Use: No Drug/Substance Use Hx: No Substance Use Type: None <Schuyler Montano - Last Filed: 01/23/18 18:42> - Past Medical History Allergies/Adverse Reactions: Allergies Allergy/AdvReac Type Severity Reaction Status Date / Time bee venom protein (honey bee) Allergy Verified 01/23/18 12:32 cephalexin monohydrate Allergy Verified 01/23/18 12:32 [From Keflex] clindamycin Allergy Verified 01/23/18 12:32 peanut Allergy Verified 01/23/18 12:32 strawberry Allergy Verified 01/23/18 12:32 Sulfa (Sulfonamide Allergy Verified 01/23/18 12:32 Antibiotics) Home Medications: Ambulatory Orders Aripiprazole [Abilify] 5 mg PO DAILY 11/04/17 Atorvastatin Ca [Lipitor] 40 mg PO HS 11/04/17 Baclofen 20 mg PO QID 11/04/17 Bupropion HCl [Bupropion HCl Sr] 150 mg PO DAILY 11/04/17 Clonazepam [Klonopin] 2 mg PO DAILY 11/04/17 Clonazepam [Klonopin] 4 mg PO HS 11/04/17 Docusate Sodium [Colace] 300 mg PO HS 11/04/17 Furosemide [Lasix] 40 mg PO DAILY 11/04/17 Levothyroxine [Synthroid -] 150 mcg PO DAILY 11/04/17 Omeprazole 20 mg PO DAILY 11/04/17 Venlafaxine HCl ER [Effexor Xr -] 150 mg PO DAILY 11/04/17 Oxycodone HCl 5 mg PO Q4HWA PRN MDD 6 01/16/18 Trazodone HCl 100 mg PO HS 01/16/18 Review of Systems - Review of Systems Able to Perform ROS?: Yes Is the patient limited [place] proficient: No Constitutional: No: Chills, Diaphoresis, Fever HEENTM: No: Tinnitus <Schuyler Montano - Last Filed: 01/23/18 18:42> *Physical Exam - Vital Signs Last Vital Signs Temp Pulse Resp BP Pulse Ox 100.9 F H 64 16 131/64 97 01/23/18 12:29 01/23/18 12:29 01/23/18 12:29 01/23/18 12:29 01/23/18 12:29 <Mar Esparza - Last Filed: 01/23/18 17:21> - Vital Signs Last Vital Signs Temp Pulse Resp BP Pulse Ox 100.9 F H 64 16 131/64 97 01/23/18 12:29 01/23/18 12:29 01/23/18 12:29 01/23/18 12:29 01/23/18 12:29 - Physical Exam Comments: 01/23/18 15:10 GENERAL: AAOx3, NAD HEAD: NC/AT EYES: EOMI ENT: MMM NECK: Supple, No JVD LUNGS: CTA B/L HEART: RRR, S1 S2, No MRG ABDOMEN: No HSM, NT, ND EXTREMITIES : ROM intact NEUROLOGICAL: No Neuro Defs SKIN: LLE warm, erythematous, swollen General Appearance: Yes: Nourished, Appropriately Dressed HEENT: positive: EOMI, Normal ENT Inspection, Normal Voice, Symmetrical, Pharynx Normal Neck: positive: Trachea midline, Supple Respiratory/Chest: positive: Lungs Clear, Normal Breath Sounds Cardiovascular: positive: Regular Rhythm, Regular Rate, S1, S2 Extremity: positive: Swelling, Calf Tenderness, Erythema, Inflammation Integumentary: positive: Warm, Erythema, Swelling Neurologic: positive: commissary helper II-XII NML intact, Fully Oriented, Alert, Normal Mood/ Affect, Normal Response <Schuyler Montano - Last Filed: 01/23/18 18:42> ED Treatment Course - LABORATORY CBC & Chemistry Diagram: 01/23/18 15:20 01/23/18 15:20 - ADDITIONAL ORDERS Additional order review: Laboratory Results 01/23/18 01/23/18 15:20 15:20 Sodium 138 Potassium 4.4 Chloride 103 Carbon Dioxide 27 Anion Gap 8 BUN 8 Creatinine 0.4 L Creat Clearance w eGFR > 60 Random Glucose 76 Lactic Acid 0.6 Calcium 8.8 Total Bilirubin 0.3 AST 27 ALT 19 Alkaline Phosphatase 111 Total Protein 6.9 Albumin 3.3 L 01/23/18 15:20 RBC 3.41 L MCV 93.3 MCHC 34.2 RDW 14.6 MPV 8.0 Neutrophils % 59.0 D Lymphocytes % 28.5 D Monocytes % 7.2 Eosinophils % 3.9 D Basophils % 1.4 - RADIOLOGY Radiology Studies Ordered: Category Date Time Status ANKLE & FOOT-LEFT* [RAD] Stat Radiology 01/23/18 13:28 Completed - Medications Given in the ED: ED Medications Discontinued Medications Generic Name Dose Route Start Last Admin Trade Name Nakul PRN Reason Stop Dose Admin Acetaminophen 975 mg 01/23/18 13:28 01/23/18 14:15 Tylenol - PO 01/23/18 13:29 975 mg ONCE ONE Administration Baclofen 20 mg 01/23/18 16:08 01/23/18 16:51 Lioresal - PO 01/23/18 16:09 20 mg ONCE ONE Administration Oxycodone HCl 10 mg 01/23/18 14:15 01/23/18 14:54 Roxicodone - PO 01/23/18 14:16 10 mg ONCE ONE Administration <Mar Esparza - Last Filed: 01/23/18 17:21> - LABORATORY CBC & Chemistry Diagram: 01/23/18 15:20 01/23/18 15:20 <Schuyler Montano - Last Filed: 01/23/18 18:42> *DC/Admit/Observation/Transfer - Discharge Dispostion Decision to Admit order: Yes Decision to Admit order Date/Time: Decision to Admit Order Category Date Time Status Decision to Admit to Hospital Routine Admission 01/23/18 16:08 Active <Mar Esparza - Last Filed: 01/23/18 17:21> - Discharge Dispostion Decision to Admit order: Yes <Schuyler Montano - Last Filed: 01/23/18 18:42> Diagnosis at time of Disposition: Cellulitis, Tibia/fibula fracture - Discharge Dispostion Condition at time of disposition: Stable
--- NOTE | 2018-01-23 13:27 | PDOC ---
Attending Attestation - Resident Resident Name: [facility] ED Attending Attestation I have performed the following: I have examined & evaluated the patient, The case was reviewed & discussed with the resident, I agree w/resident's findings & plan - HPI HPI: 01/23/18 19:26 Sudarshan Campbell 62 year old female, with a significant past medical history of HLD, hypothyroidism, multiple bouts of cellulitis (September 2017 most recent), depression, anxiety, constipation, obesity, who presents to the emergency department s/p injury with, pain to the left lower extremity. As per patient, 4 days ago she was grocery shopping when moving from her electric scooter to her walker and inverted her ankle. She was able to ambulate s/p fall. Today she reports the pain has gotten progressively worse. She denies recent fevers, chills, headache or dizziness. She denies recent nausea, vomit, diarrhea or constipation. She denies recent dysuria, frequency, urgency or hematuria. She denies recent chest pain or shortness of breath. Allergies: Keflex, Sulfur, Ciprofloxacin, Clindamycin, Strawberries Past surgical history: 2 back surgeries (Degenerative Scoliosis) w/ yaron placement. Extensive Left leg operation 2/2 fracture (screw and plate insertion) . . Social history: Smoker (4 Cigarettes per day). Denies EtOH use and recreational drug use. Primary Care Physician: Dr. Garcia - Physicial Exam PE: 01/23/18 19:25 NAD, well appearing, MMM, nl conjunctiva, anicteric; neck supple. lungs clear, RRR, abdomen soft nontender. SOTO x4, no focal neuro deficits. No peripheral edema. normal color for ethnicity, WWP. venous stasis changes in bilateral lower shins. Left ankle bilateral malleolus tenderness with edema and erythema. Left lateral malleolus well-healing surgical scar. +mild left ankle deformity noted, 2+ DP pulses - Medical Decision Making 01/23/18 16:10 MDM: Aleta 62 year old woman with a history of HTN, hyperlipidemia, hypothyroidism, depression, anxiety, constipation, obesity presenting with left leg/ankle pain and swelling, +fever. Last admission in September 2017 for leg cellulitis with Acinetobacter and coagulase neg Staph, placed on Tygacil and treated for tinea pedis as well. Today presenting with increased left ankle pain and swelling s/p twisting ankle 4 days ago, now with increased redness and warmth. DDx. Tib-fib fx, ankle/leg sprain, bacteremia, sepsis, DVT, cellulitis, osteomyelitis. Vital signs reviewed, +fevers, otherwise unremarkable. fever downtrended with antipyretics. Medical Plan: CBC, CMP, blood cx, XR left foot/ankle. low utility for ESR/CRP, defer to inpatient team. Prior notes reviewed, including admissions, discharges and consultations. laboratory results and imaging reviewed, basic labs and lytes wnl. IV abx with vancomycin and Tygacil (multiple allergies noted.). Not candidate for outpatient management due to poor circulation, and risk of infection, with prior cellulitis requiring IV abx and positive wound cx. - also given pain meds here oxycodone and baclofen due for her leg spasms. - XR of Left ankle with hardware fracture on top of tib-fib fx. - ortho cs with Dr. Tinsley/Jenniffer, likely will need orthopedic surgical management. ID consultation with Dr. Dean for abx, given IV doses of appropriate meds for superimposed infection Dispo: Admit for LLE cellulitis, tib fib fracture through hardware... Discussed results and management plan with pt and family member at bedside, agree with impression and plan 01/23/18 19:26 01/23/18 19:27
[2018-01-23] MEDS ORDERED: ACETAMINOPHEN 325 MG TABLET (FP) PO ONE (13:28)
[2018-01-23] MEDS ORDERED: ACETAMINOPHEN 325 MG TABLET (FP) ONE (14:07)
[2018-01-23] MEDS ORDERED: oxyCODONE HCL 5 MG TABLET PO ONE (14:15)
[2018-01-23] MEDS ORDERED: oxyCODONE HCL 5 MG TABLET ONE (14:39)
[2018-01-23 15:31] LABS: BASO % 1.4 % (0-2.0); EOS % 3.9 % (0-4.5); HEMATOCRIT 31.8 % (32.4-45.2); HEMOGLOBIN 10.9 GM/dL (10.7-15.3); LYMPH % 28.5 % (8-40); MCH 31.9 pg (25.7-33.7); MCHC 34.2 g/dl (32.0-36.0); MEAN CELL VOLUME 93.3 fl (80-96); MONO % 7.2 % (3.8-10.2); PLATELET COUNT 307 K/MM3 (134-434); RBC 3.41 M/mm3 (3.60-5.2); RDW 14.6 % (11.6-15.6); WHITE BLOOD COUNT 6.6 K/mm3 (4.0-10.0)
[2018-01-23] MEDS ORDERED: TIGECYCLINE 50 MG in DEXTROSE 5%-WATER - 100 ML IVPB SCH ×2 (15:46→22:00)
[2018-01-23] MEDS ORDERED: BACLOFEN 10 MG TABLET (FP) PO ONE (16:08)
[2018-01-23] MEDS ORDERED: VANCOMYCIN 1,500 MG in DEXTROSE 5%-WATER - 250 ML IVPB ONE (16:11)
[2018-01-23] MEDS ORDERED: BACLOFEN 10 MG TABLET (FP) ONE (16:38)
[2018-01-23 16:39] LABS: ALBUMIN 3.3 g/dl (3.4-5.0); ANION GAP 8 MMOL/L (8-16); BILIRUBIN,TOTAL 0.3 mg/dL (0.2-1.0); BLOOD UREA NITROGEN 8 mg/dL (7-18); CALCIUM 8.8 mg/dL (8.5-10.1); CHLORIDE 103 mmol/L (98-107); CO2 27 mmol/L (21-32); CREATININE 0.4 mg/dL (0.55-1.02); GLUCOSE,RANDOM 76 mg/dL (74-106); SGPT/ALT 19 U/L (12-78); SODIUM 138 mmol/L (136-145); TOT PROT 6.9 g/dl (6.4-8.2)
[2018-01-23 16:40] LABS: ALK PHOS 111 U/L (45-117)
[2018-01-23 16:43] LABS: POTASSIUM 4.4 mmol/L (3.5-5.1); SGOT/AST 27 U/L (15-37)
[2018-01-23] MEDS ORDERED: VANCOMYCIN 1,500 MG in DEXTROSE 5%-WATER - 500 ML IVPB ONE (17:00)
[2018-01-23 18:54] VITALS: BMI 39.9
--- NOTE | 2018-01-23 19:13 | HP ---
Admitting History and Physical - Primary Care Physician PCP: Tanmay Harrison - Admission History of Present Illness: Pt is a 63 y/o F with a pmh of HLD, hypothyroidism, multiple bouts of cellulites (September 2017 most recent) presents to [facility] s/p injury to the LL extremity. Pt endorses she was at [employer] [place] in [place] where she was trying to transfer from her electric scooter to her walker and fell onto inverted ankle. She was able to walk after she fell. The pain is rated 10/10. This occurred , she deferred medical treatment until today when the pain progressed. Denies cp, sob, nausea, vomiting, or chills. - Past Medical History Cardiovascular: Yes: Hyperlipdemia Endocrine: Yes: Hypothyroidism - Smoking History Smoking history: Never smoked Have you smoked in the past 12 months: No Aproximately how many cigarettes per day: 4 - Alcohol/Substance Use Hx Alcohol Use: No Home Medications - Allergies Allergies/Adverse Reactions: Allergies Allergy/AdvReac Type Severity Reaction Status Date / Time bee venom protein (honey bee) Allergy Verified 01/23/18 12:32 cephalexin monohydrate Allergy Verified 01/23/18 12:32 [From Keflex] clindamycin Allergy Verified 01/23/18 12:32 peanut Allergy Verified 01/23/18 12:32 strawberry Allergy Verified 01/23/18 12:32 Sulfa (Sulfonamide Allergy Verified 01/23/18 12:32 Antibiotics) - Home Medications Home Medications: Ambulatory Orders Aripiprazole [Abilify] 5 mg PO DAILY 11/04/17 Atorvastatin Ca [Lipitor] 40 mg PO HS 11/04/17 Baclofen 20 mg PO QID 11/04/17 Bupropion HCl [Bupropion HCl Sr] 150 mg PO DAILY 11/04/17 Clonazepam [Klonopin] 2 mg PO DAILY 11/04/17 Clonazepam [Klonopin] 4 mg PO HS 11/04/17 Docusate Sodium [Colace] 300 mg PO HS 11/04/17 Furosemide [Lasix] 40 mg PO DAILY 11/04/17 Levothyroxine [Synthroid -] 150 mcg PO DAILY 11/04/17 Omeprazole 20 mg PO DAILY 11/04/17 Venlafaxine HCl ER [Effexor Xr -] 150 mg PO DAILY 11/04/17 Oxycodone HCl 5 mg PO Q4HWA PRN MDD 6 01/16/18 Trazodone HCl 100 mg PO HS 01/16/18 Physical Examination Vital Signs: Vital Signs Temperature 98.2 F 01/23/18 18:35 Pulse Rate 65 01/23/18 18:35 Respiratory Rate 16 01/23/18 18:35 Blood Pressure 114/68 01/23/18 18:35 O2 Sat by Pulse Oximetry (%) 100 01/23/18 17:58 HENT: Yes: Atraumatic Neck: Yes: Supple Cardiovascular: Yes: Regular Rate and Rhythm Respiratory: Yes: CTA Bilaterally Gastrointestinal: Yes: Normal Bowel Sounds Extremities: Yes: Other (llex swollen, warm and tender) Edema: Yes Edema: LLE: 1+ Neurological: Yes: Alert, Oriented Labs: CBC, BMP 01/23/18 15:20 01/23/18 15:20 Problem List - Problems (1) Cellulitis Assessment/Plan: on abx prn pain meds Code(s): L03.90 - CELLULITIS, UNSPECIFIED Qualifiers: (2) Hypothyroidism Assessment/Plan: on meds stable Code(s): E03.9 - HYPOTHYROIDISM, UNSPECIFIED Assessment/Plan Laboratory Tests 01/23/18 01/23/18 01/23/18 15:20 15:20 15:20 WBC 6.6 RBC 3.41 L Hgb 10.9 Hct 31.8 L MCV 93.3 MCH 31.9 MCHC 34.2 RDW 14.6 Plt Count 307 D MPV 8.0 Absolute Neuts (auto) 3.9 Neutrophils % 59.0 D Lymphocytes % 28.5 D Monocytes % 7.2 Eosinophils % 3.9 D Basophils % 1.4 Nucleated RBC % 0 Sodium 138 Potassium 4.4 Chloride 103 Carbon Dioxide 27 Anion Gap 8 BUN 8 Creatinine 0.4 L Creat Clearance w eGFR > 60 Random Glucose 76 Lactic Acid 0.6 Calcium 8.8 Total Bilirubin 0.3 AST 27 ALT 19 Alkaline Phosphatase 111 Total Protein 6.9 Albumin 3.3 L Active Medications Generic Name Dose Route Start Last Admin Trade Name Freq PRN Reason Stop Dose Admin Tigecycline 50 mg/ Dextrose 100 mls @ 100 mls/hr 01/23/18 15:46 IVPB BID JOVANNY Protocol Vancomycin HCl 1,500 mg/ 500 mls @ 250 mls/2 hr 01/23/18 17:00 01/23/18 17:57 Dextrose IVPB 01/23/18 20:59 250 mls/2 hr ONCE ONE Administration Protocol Active Medications Generic Name Dose Route Start Last Admin Trade Name Freq PRN Reason Stop Dose Admin Acetaminophen 650 mg 01/24/18 10:27 01/25/18 14:54 Tylenol - PO 650 mg Q6H PRN Administration PAIN SCALE 5-10 Aripiprazole 5 mg 01/24/18 10:00 01/25/18 09:54 Abilify PO 5 mg DAILY JOVANNY Administration Atorvastatin Calcium 40 mg 01/23/18 22:00 01/24/18 21:12 Lipitor - PO 40 mg HS JOVANNY Administration Baclofen 20 mg 01/23/18 20:00 01/25/18 17:31 Lioresal - PO 20 mg QID JOVANNY Administration Bupropion HCl 150 mg 01/24/18 10:00 01/25/18 10:00 Wellbutrin Xl - PO 150 mg DAILY JOVANNY Administration Clonazepam 4 mg 01/24/18 22:00 01/24/18 21:12 Klonopin - PO 4 mg HS JOVANNY Administration Clonazepam 2 mg 01/24/18 10:00 01/25/18 09:57 Klonopin - PO 2 mg DAILY JOVANNY Administration Furosemide 40 mg 01/24/18 10:00 01/25/18 09:58 Lasix - PO 40 mg DAILY JOVANNY Administration Gabapentin 200 mg 01/24/18 10:30 01/25/18 09:58 Neurontin - PO 200 mg BID JOVANNY Administration Heparin Sodium (Porcine) 5,000 unit 01/23/18 22:00 01/25/18 09:55 Heparin - SQ 5,000 unit BID JOVANNY Administration Lactulose 20 gm 01/25/18 22:00 Cephulac (Oral Use) PO TID JOVANNY Levothyroxine Sodium 150 mcg 01/24/18 07:00 01/25/18 06:43 Synthroid - PO 150 mcg 0700 JOVANNY Administration Magnesium Hydroxide 30 ml 01/25/18 19:54 01/25/18 20:41 Milk Of Magnesia - PO 30 ml DAILY PRN Administration CONSTIPATION Oxycodone HCl 10 mg 01/24/18 10:27 01/25/18 14:53 Roxicodone - PO 10 mg Q6H PRN Administration PAIN SCALE 5-10 Pantoprazole Sodium 20 mg 01/24/18 10:00 01/25/18 09:58 Protonix - PO 20 mg DAILY JOVANNY Administration Polyethylene Glycol 17 gm 01/24/18 22:00 01/25/18 10:03 Miralax (For Daily Use) - PO 17 grams DAILY JOVANNY Administration Trazodone HCl 100 mg 01/23/18 22:00 01/24/18 21:13 Desyrel - PO 100 mg HS JOVANNY Administration Venlafaxine HCl 150 mg 01/25/18 10:00 01/25/18 09:55 Effexor Xr - PO 150 mg DAILY JOVANNY Administration
[2018-01-23] MEDS ORDERED: TIGECYCLINE 100 MG in DEXTROSE 5%-WATER - 100 ML IVPB ONE (19:31)
[2018-01-23] MEDS: BACLOFEN 10 MG TABLET (FP) PO SCH (19:56)
[2018-01-23] MEDS ORDERED: PT OWN MED DRAWER 7, Y5N ONE (20:16)
[2018-01-23] MEDS: HEPARIN NA (PORCINE) 5,000 UNITS/ML 1ML VIAL SQ SCH (21:56)
[2018-01-23] MEDS: traZODone HCL 50 MG TABLET (FP) PO SCH (21:56)
[2018-01-23] MEDS: ATORVASTATIN CA 40 MG TABLET (FP) PO SCH (21:56)
[2018-01-23] MEDS ORDERED: BACLOFEN 10 MG TABLET (FP) PO SCH (22:00)
[2018-01-24] MEDS ORDERED: PT OWN MED DRAWER 7, Y5N ONE ×4 (05:56→16:30)
[2018-01-24] MEDS: LEVOTHYROXINE NA 75 MCG TABLET (FP) PO SCH (06:46)
[2018-01-24] MEDS: clonazePAM 2 MG TABLET PO SCH ×2 (09:19→21:12)
[2018-01-24] MEDS: HEPARIN NA (PORCINE) 5,000 UNITS/ML 1ML VIAL SQ SCH ×2 (09:20→21:13)
[2018-01-24] MEDS: PANTOPRAZOLE 20 MG TABLET (FP) PO SCH (09:21)
[2018-01-24] MEDS: BACLOFEN 10 MG TABLET (FP) PO SCH ×4 (09:21→21:12)
[2018-01-24] MEDS: ARIPiprazole 5 MG TABLET (FP) PO SCH (09:21)
[2018-01-24] MEDS: FUROSEMIDE 40 MG TABLET (FP) PO SCH (09:21)
[2018-01-24] MEDS ORDERED: TIGECYCLINE 50 MG in DEXTROSE 5%-WATER - 100 ML IVPB SCH (10:00)
[2018-01-24] MEDS ORDERED: VENLAFAXINE HCL 150 MG E.R. CAPSULE PO SCH (10:00)
[2018-01-24] MEDS: GABAPENTIN 100 MG CAPSULE (FP) PO SCH ×2 (12:32→21:13)
[2018-01-24] MEDS: oxyCODONE HCL 5 MG TABLET PO PRN ×2 (12:36→20:11)
--- NOTE | 2018-01-24 13:42 | CON.ID ---
Consult Consult Specialty:: infectious diseases Reason for Consultation:: cellulitits of the left leg,bacteremia - History of Present Illness Chief Complaint: pain and swelling of the left leg History of Present Illness: 63 y/o F with a pmh of HLD, hypothyroidism, multiple bouts of cellulites admitted s/p injury to the LL extremity. Pt endorses she was at [place] and shop in [place] where she was trying to transfer from her electric scooter to her walker and fell onto inverted ankle. She was able to walk after she fell. The pain is rated 10/10. This occurred , she deferred medical treatment until today when the pain progressed. Denies cp, sob, nausea, vomiting, or chills. patient came to the hospital and on her blood work up one of the bottles has come positive for bacterial culture complaining pain in the left ankle - History Source History Provided By: Patient Limitations to Obtaining History: No Limitations - Past Medical History Cardio/Vascular: Yes: Hyperlipdemia Endocrine: Yes: Hypothyroidism - Alcohol/Substance Use Hx Alcohol Use: No - Smoking History Smoking history: Never smoked Have you smoked in the past 12 months: No Aproximately how many cigarettes per day: 4 Home Medications - Allergies Allergies/Adverse Reactions: Allergies Allergy/AdvReac Type Severity Reaction Status Date / Time bee venom protein (honey bee) Allergy Verified 01/23/18 12:32 cephalexin monohydrate Allergy Verified 01/23/18 12:32 [From Keflex] clindamycin Allergy Verified 01/23/18 12:32 peanut Allergy Verified 01/23/18 12:32 strawberry Allergy Verified 01/23/18 12:32 Sulfa (Sulfonamide Allergy Verified 01/23/18 12:32 Antibiotics) - Home Medications Home Medications: Ambulatory Orders Aripiprazole [Abilify] 5 mg PO DAILY 11/04/17 Atorvastatin Ca [Lipitor] 40 mg PO HS 11/04/17 Baclofen 20 mg PO QID 11/04/17 Bupropion HCl [Bupropion HCl Sr] 150 mg PO DAILY 11/04/17 Clonazepam [Klonopin] 2 mg PO DAILY 11/04/17 Clonazepam [Klonopin] 4 mg PO HS 11/04/17 Docusate Sodium [Colace] 300 mg PO HS 11/04/17 Furosemide [Lasix] 40 mg PO DAILY 11/04/17 Levothyroxine [Synthroid -] 150 mcg PO DAILY 11/04/17 Omeprazole 20 mg PO DAILY 11/04/17 Venlafaxine HCl ER [Effexor Xr -] 150 mg PO DAILY 11/04/17 Oxycodone HCl 5 mg PO Q4HWA PRN MDD 6 01/16/18 Trazodone HCl 100 mg PO HS 01/16/18 Review of Systems - Review of Systems Constitutional: reports: No Symptoms Eyes: reports: No Symptoms HENT: reports: No Symptoms Neck: reports: No Symptoms Cardiovascular: reports: No Symptoms Respiratory: reports: No Symptoms Gastrointestinal: reports: No Symptoms Genitourinary: reports: No Symptoms Musculoskeletal: reports: Other Integumentary: reports: Erythema (left ankle) Neurological: reports: No Symptoms Endocrine: reports: No Symptoms Hematology/Lymphatic: reports: No Symptoms Psychiatric: reports: No Symptoms Physical Exam Vital Signs: Vital Signs Temperature 98.7 F 01/24/18 09:00 Pulse Rate 78 01/24/18 09:00 Respiratory Rate 18 01/24/18 11:31 Blood Pressure 149/74 01/24/18 09:00 O2 Sat by Pulse Oximetry (%) 100 01/24/18 11:31 Constitutional: Yes: Well Nourished, Calm, Mild Distress Eyes: Yes: Conjunctiva Clear Neck: Yes: Supple, Trachea Midline Cardiovascular: Yes: Regular Rate and Rhythm Respiratory: Yes: Regular, CTA Bilaterally Gastrointestinal: Yes: Normal Bowel Sounds, Soft Musculoskeletal: Yes: Muscle Pain, Other Extremities: Yes: Erythema (left ankle), Other Neurological: Yes: Alert, Oriented Psychiatric: Yes: Alert, Oriented Labs: CBC, BMP 01/23/18 15:20 01/23/18 15:20 Imaging - Results X-ray: Report Reviewed, Image Reviewed Assessment/Plan gm positive bacteremia left ankle injury Problem List - Problems (1) Cellulitis Code(s): L03.90 - CELLULITIS, UNSPECIFIED Qualifiers: (2) Hypothyroidism Code(s): E03.9 - HYPOTHYROIDISM, UNSPECIFIED plan i think it is a contaminant but will continue vanco for now once we have the organism will make final decision rest as per the team
[2018-01-24] MEDS ORDERED: VANCOMYCIN 1,250 MG in DEXTROSE 5%-WATER - 250 ML IVPB SCH (15:45)
--- NOTE | 2018-01-24 16:16 | PN ---
Progress Note (short form) - Note Progress Note: Pt seen and examined. We had a long and extensive discussion about her situation. In summary she has PVD, poor distal circulation, and sustained a severe, comminuted fracture to the left ankle. I performed an ORIF of the left ankle 2-3 months ago. She states she was doing very well until when she got her left foot and ankle caught in some sort of motorized device. Her left foot and ankle were severely twisted. She elevated the ankle, stayed off it , iced it and she feels much better, her swelling has gone way down. She does not have a lot of pain at this time. She states she has active LLE cellulitis, and is on IV antibiotics for that. PE LLE shows signs of chronic PVD. Grossly NVI. Limited but intact ROM left ankle, including intact PF, DF, inversion, eversion. There is a inversion deformity/angulation of the foot relative to the leg. It is not reduceable, I tried, but it is the bent plate that is holding it in that malposition. No severe swelling. No open aspect. No bruising, Skin intact. ` + mildly tender to palpation over the medial and lateral aspect of the left ankle, not over the mid or proximal tibia. Xrays Show that the hardware is bent, not obviously broken. Portions of the bone have refractured, and pulled away from the hardware. The foot and talus are displaced relative to the distal tibia. Imp As above: acute, displaced, angulated, comminuted fracture of the left distal fibula and tibia, with bent hardware. Moderate to severe PVD, cellulitis. Rec We had a very extensive conversation about the potential risks, complications, alternatives, and benefits of surgery Vs non surgical treatment. We discussed the options, which include: Acute surgery, removal of hardware and repeat ORIF. Removal of hardware and closed reduction, no hardware. No surgery of any kind. Immediate or later fusion. She is adamantly refusing surgery at this time. She understands the down sides of that decision, which include, but are not limited to, the fracture never healing/non union, chronic pain and deformity, failure of hardware, the hardware may erode through the skin, infection, eventual amputation. She understands, has no further questions at this time, and is electing to go with having an orthotic made, if possible, that gives her some function. She is also not a great surgical candidate because of her PVD. Surgery may increase the risk of eventual amputation. I spoke with a custom orthotic company about making a custom AFO or "walker" boot. One of their orthotists will meet me in the hospital, at her bedside tomorrow morning.
[2018-01-24] MEDS: ATORVASTATIN CA 40 MG TABLET (FP) PO SCH (21:12)
[2018-01-24] MEDS: traZODone HCL 50 MG TABLET (FP) PO SCH (21:13)
--- NOTE | 2018-01-24 21:48 | PN ---
Progress Note, Physician History of Present Illness: doing well - Current Medication List Current Medications: Active Medications Acetaminophen (Tylenol -) 650 mg PO Q6H PRN PRN Reason: PAIN SCALE 5-10 Aripiprazole (Abilify) 5 mg PO DAILY [facility] Last Admin: 01/24/18 09:21 Dose: 5 mg Atorvastatin Calcium (Lipitor -) 40 mg PO HS [facility] Last Admin: 01/24/18 21:12 Dose: 40 mg Baclofen (Lioresal -) 20 mg PO QID [facility] Last Admin: 01/24/18 21:12 Dose: 20 mg Bupropion HCl (Wellbutrin Xl -) 150 mg PO DAILY [facility] Last Admin: 01/24/18 09:20 Dose: 150 mg Clonazepam (Klonopin -) 4 mg PO HS [facility] Last Admin: 01/24/18 21:12 Dose: 4 mg Clonazepam (Klonopin -) 2 mg PO DAILY [facility] Last Admin: 01/24/18 09:19 Dose: 2 mg Furosemide (Lasix -) 40 mg PO DAILY [facility] Last Admin: 01/24/18 09:21 Dose: 40 mg Gabapentin (Neurontin -) 200 mg PO BID [facility] Last Admin: 01/24/18 21:13 Dose: 200 mg Heparin Sodium (Porcine) (Heparin -) 5,000 unit SQ BID [facility] Last Admin: 01/24/18 21:13 Dose: 5,000 unit Vancomycin HCl 1,250 mg/ (Dextrose) 250 mls @ 250 mls/2 hr IVPB Q24H [facility]; Protocol Last Admin: 01/24/18 17:02 Dose: 250 mls/2 hr Levothyroxine Sodium (Synthroid -) 150 mcg PO 0700 [facility] Last Admin: 01/24/18 06:46 Dose: 150 mcg Oxycodone HCl (Roxicodone -) 10 mg PO Q6H PRN PRN Reason: PAIN SCALE 5-10 Last Admin: 01/24/18 20:11 Dose: 10 mg Pantoprazole Sodium (Protonix -) 20 mg PO DAILY [facility] Last Admin: 01/24/18 09:21 Dose: 20 mg Trazodone HCl (Desyrel -) 100 mg PO HS [facility] Last Admin: 01/24/18 21:13 Dose: 100 mg Venlafaxine HCl (Effexor Xr -) 150 mg PO DAILY [facility] Last Admin: 01/24/18 09:20 Dose: 150 mg - Objective Vital Signs: Vital Signs Temperature 98.2 F 01/24/18 14:41 Pulse Rate 78 01/24/18 14:41 Respiratory Rate 18 01/24/18 14:41 Blood Pressure 123/82 01/24/18 14:41 O2 Sat by Pulse Oximetry (%) 100 01/24/18 11:31 HENT: Yes: Atraumatic Neck: Yes: Supple Cardiovascular: Yes: Regular Rate and Rhythm Respiratory: Yes: CTA Bilaterally Gastrointestinal: Yes: Normal Bowel Sounds Extremities: Yes: Erythema (llex) Edema: Yes Edema: LLE: 1+ (left ankle) Neurological: Yes: Alert, Oriented Labs: CBC, BMP 01/23/18 15:20 01/23/18 15:20 Problem List - Problems (1) Cellulitis Assessment/Plan: on abx prn pain meds Code(s): L03.90 - CELLULITIS, UNSPECIFIED Qualifiers: (2) Hypothyroidism Assessment/Plan: on meds stable Code(s): E03.9 - HYPOTHYROIDISM, UNSPECIFIED (3) Tibia/fibula fracture Assessment/Plan: ortho in place prn pain meds pt eval Code(s): S82.209A - UNSP FRACTURE OF SHAFT OF UNSP TIBIA, INIT FOR CLOS FX; S82.409A - UNSP FRACTURE OF SHAFT OF UNSP FIBULA, INIT FOR CLOS FX
[2018-01-24] MEDS ORDERED: LACTULOSE 20 GM/30 ML UDC (FOR ORAL USE ONLY) PO PRN (21:51)
[2018-01-24] MEDS: POLYETHYLENE GLYCOL 3350 119 GM BTL PO SCH (23:12)
[2018-01-25] MEDS: ACETAMINOPHEN 325 MG TABLET (FP) PO PRN ×3 (06:42→21:42)
[2018-01-25] MEDS: LEVOTHYROXINE NA 75 MCG TABLET (FP) PO SCH (06:43)
[2018-01-25] MEDS: oxyCODONE HCL 5 MG TABLET PO PRN ×3 (08:10→21:42)
--- NOTE | 2018-01-25 09:36 | PN ---
Progress Note (short form) - Note Progress Note: Pt seen, appears comfortable, no c/o pain. Left ankle and foot look the same. I spoke to the orthotic company yesterday, the plan is for their video and sound recorder to meet me at the patient's bedside today to plan the design of a custom boot/AFO orthotic. Pt understands and agrees with this plan.
[2018-01-25] MEDS ORDERED: PT OWN MED DRAWER 7, Y5N ONE (09:49)
[2018-01-25] MEDS: ARIPiprazole 5 MG TABLET (FP) PO SCH (09:54)
[2018-01-25] MEDS: VENLAFAXINE HCL 75 MG E.R. CAPSULES (FP) PO SCH (09:55)
[2018-01-25] MEDS: HEPARIN NA (PORCINE) 5,000 UNITS/ML 1ML VIAL SQ SCH ×2 (09:55→21:37)
[2018-01-25] MEDS: clonazePAM 2 MG TABLET PO SCH ×2 (09:57→21:36)
[2018-01-25] MEDS: PANTOPRAZOLE 20 MG TABLET (FP) PO SCH (09:58)
[2018-01-25] MEDS: GABAPENTIN 100 MG CAPSULE (FP) PO SCH ×2 (09:58→21:37)
[2018-01-25] MEDS: BACLOFEN 10 MG TABLET (FP) PO SCH ×4 (09:58→21:37)
[2018-01-25] MEDS: FUROSEMIDE 40 MG TABLET (FP) PO SCH (09:58)
[2018-01-25] MEDS: POLYETHYLENE GLYCOL 3350 119 GM BTL PO SCH (10:03)
--- NOTE | 2018-01-25 11:40 | PN ---
Progress Note (short form) - Note Progress Note: Vascular Surgery S/P trauma to left lower ext. Seems like ankle is re-fractured. Pt has a palpable pulse in left dp. Pt coming in to the office on feb 16 for ablation therapy for venous insuffiency No need for any vascular intervention at this time Darnell Gambino DO
--- NOTE | 2018-01-25 12:53 | PN ---
Progress Note, Physician History of Present Illness: doing well no complaints awaiting for repeat blood work organism noted - Current Medication List Current Medications: Active Medications Acetaminophen (Tylenol -) 650 mg PO Q6H PRN PRN Reason: PAIN SCALE 5-10 Last Admin: 01/25/18 06:42 Dose: 650 mg Aripiprazole (Abilify) 5 mg PO DAILY [facility] Last Admin: 01/25/18 09:54 Dose: 5 mg Atorvastatin Calcium (Lipitor -) 40 mg PO [facility] Last Admin: 01/24/18 21:12 Dose: 40 mg Baclofen (Lioresal -) 20 mg PO QID [facility] Last Admin: 01/25/18 09:58 Dose: 20 mg Bupropion HCl (Wellbutrin Xl -) 150 mg PO DAILY [facility] Last Admin: 01/25/18 10:00 Dose: 150 mg Clonazepam (Klonopin -) 4 mg PO [facility] Last Admin: 01/24/18 21:12 Dose: 4 mg Clonazepam (Klonopin -) 2 mg PO DAILY [facility] Last Admin: 01/25/18 09:57 Dose: 2 mg Furosemide (Lasix -) 40 mg PO DAILY [facility] Last Admin: 01/25/18 09:58 Dose: 40 mg Gabapentin (Neurontin -) 200 mg PO BID [facility] Last Admin: 01/25/18 09:58 Dose: 200 mg Heparin Sodium (Porcine) (Heparin -) 5,000 unit SQ BID [facility] Last Admin: 01/25/18 09:55 Dose: 5,000 unit Lactulose (Cephulac (Oral Use)) 20 gm PO Q8H PRN PRN Reason: CONSTIPATION Levothyroxine Sodium (Synthroid -) 150 mcg PO 0700 [facility] Last Admin: 01/25/18 06:43 Dose: 150 mcg Oxycodone HCl (Roxicodone -) 10 mg PO Q6H PRN PRN Reason: PAIN SCALE 5-10 Last Admin: 01/25/18 08:10 Dose: 10 mg Pantoprazole Sodium (Protonix -) 20 mg PO DAILY [facility] Last Admin: 01/25/18 09:58 Dose: 20 mg Polyethylene Glycol (Miralax (For Daily Use) -) 17 gm PO DAILY [facility] Last Admin: 01/25/18 10:03 Dose: 17 grams Trazodone HCl (Desyrel -) 100 mg PO [facility] Last Admin: 01/24/18 21:13 Dose: 100 mg Venlafaxine HCl (Effexor Xr -) 150 mg PO DAILY [facility] Last Admin: 01/25/18 09:55 Dose: 150 mg - Objective Vital Signs: Vital Signs Temperature 98.8 F 01/25/18 09:46 Pulse Rate 60 01/25/18 09:46 Respiratory Rate 18 01/25/18 09:46 Blood Pressure 100/60 01/25/18 09:46 O2 Sat by Pulse Oximetry (%) 100 01/24/18 11:31 Constitutional: Yes: No Distress, Calm Eyes: Yes: Conjunctiva Clear Cardiovascular: Yes: Regular Rate and Rhythm Respiratory: Yes: Regular, CTA Bilaterally Gastrointestinal: Yes: Normal Bowel Sounds, Soft Musculoskeletal: Yes: WNL Extremities: Yes: Other Neurological: Yes: Alert, Oriented Psychiatric: Yes: Alert, Oriented Labs: CBC, BMP 01/23/18 15:20 01/23/18 15:20 Assessment/Plan gm positive bacteremia left ankle injury Problem List - Problems (1) Cellulitis Code(s): L03.90 - CELLULITIS, UNSPECIFIED Qualifiers: (2) Hypothyroidism Code(s): E03.9 - HYPOTHYROIDISM, UNSPECIFIED plan will stop vanco await for repeat cx rest as per ortho patient stable
--- NOTE | 2018-01-25 18:44 | PN ---
Progress Note, Physician - Current Medication List Current Medications: Active Medications Acetaminophen (Tylenol -) 650 mg PO Q6H PRN PRN Reason: PAIN SCALE 5-10 Last Admin: 01/25/18 14:54 Dose: 650 mg Aripiprazole (Abilify) 5 mg PO DAILY [facility] Last Admin: 01/25/18 09:54 Dose: 5 mg Atorvastatin Calcium (Lipitor -) 40 mg PO HS [facility] Last Admin: 01/24/18 21:12 Dose: 40 mg Baclofen (Lioresal -) 20 mg PO QID [facility] Last Admin: 01/25/18 17:31 Dose: 20 mg Bupropion HCl (Wellbutrin Xl -) 150 mg PO DAILY [facility] Last Admin: 01/25/18 10:00 Dose: 150 mg Clonazepam (Klonopin -) 4 mg PO HS [facility] Last Admin: 01/24/18 21:12 Dose: 4 mg Clonazepam (Klonopin -) 2 mg PO DAILY [facility] Last Admin: 01/25/18 09:57 Dose: 2 mg Furosemide (Lasix -) 40 mg PO DAILY [facility] Last Admin: 01/25/18 09:58 Dose: 40 mg Gabapentin (Neurontin -) 200 mg PO BID [facility] Last Admin: 01/25/18 09:58 Dose: 200 mg Heparin Sodium (Porcine) (Heparin -) 5,000 unit SQ BID [facility] Last Admin: 01/25/18 09:55 Dose: 5,000 unit Lactulose (Cephulac (Oral Use)) 20 gm PO Q8H PRN PRN Reason: CONSTIPATION Last Admin: 01/25/18 13:56 Dose: 20 gm Levothyroxine Sodium (Synthroid -) 150 mcg PO 0700 [facility] Last Admin: 01/25/18 06:43 Dose: 150 mcg Oxycodone HCl (Roxicodone -) 10 mg PO Q6H PRN PRN Reason: PAIN SCALE 5-10 Last Admin: 01/25/18 14:53 Dose: 10 mg Pantoprazole Sodium (Protonix -) 20 mg PO DAILY [facility] Last Admin: 01/25/18 09:58 Dose: 20 mg Polyethylene Glycol (Miralax (For Daily Use) -) 17 gm PO DAILY [facility] Last Admin: 01/25/18 10:03 Dose: 17 grams Trazodone HCl (Desyrel -) 100 mg PO [facility] Last Admin: 01/24/18 21:13 Dose: 100 mg Venlafaxine HCl (Effexor Xr -) 150 mg PO DAILY [facility] Last Admin: 01/25/18 09:55 Dose: 150 mg - Objective Vital Signs: Vital Signs Temperature 98.5 F 01/25/18 17:16 Pulse Rate 67 01/25/18 17:16 Respiratory Rate 20 01/25/18 17:16 Blood Pressure 129/79 01/25/18 17:16 O2 Sat by Pulse Oximetry (%) 100 01/24/18 11:31 Constitutional: Yes: No Distress HENT: Yes: Atraumatic Neck: Yes: Supple Cardiovascular: Yes: Regular Rate and Rhythm Respiratory: Yes: CTA Bilaterally Gastrointestinal: Yes: Normal Bowel Sounds Extremities: Yes: Other (left ankle swollen and mild tender to touch) Neurological: Yes: Alert, Oriented Labs: CBC, BMP 01/23/18 15:20 01/23/18 15:20 Problem List - Problems (1) Cellulitis Assessment/Plan: on abx prn pain meds Code(s): L03.90 - CELLULITIS, UNSPECIFIED Qualifiers: (2) Hypothyroidism Assessment/Plan: on meds stable Code(s): E03.9 - HYPOTHYROIDISM, UNSPECIFIED (3) Tibia/fibula fracture Assessment/Plan: ortho in place prn pain meds pt eval Code(s): S82.209A - UNSP FRACTURE OF SHAFT OF UNSP TIBIA, INIT FOR CLOS FX; S82.409A - UNSP FRACTURE OF SHAFT OF UNSP FIBULA, INIT FOR CLOS FX
[2018-01-25] MEDS ORDERED: MAGNESIUM HYDROX 2400MG/30ML ORAL SUSPENSION 30 ML CUP PO PRN (19:54)
--- NOTE | 2018-01-25 21:11 | DS ---
Physical Examination Vital Signs: Vital Signs Temperature 98.3 F 01/25/18 20:42 Pulse Rate 66 01/25/18 20:42 Respiratory Rate 20 01/25/18 20:45 Blood Pressure 133/81 01/25/18 20:42 O2 Sat by Pulse Oximetry (%) 95 01/25/18 20:45 Labs: CBC, BMP 01/23/18 15:20 01/23/18 15:20 Discharge Summary Reason For Visit: CELLULITIS; VENOUS INSUFFICIENCY Current Active Problems Cellulitis (Acute) Tibia/fibula fracture (Acute) Condition: Stable - Instructions Referrals: Babar Garcia MD [Primary Care Provider] - - Home Medications Comprehensive Discharge Medication List: Ambulatory Orders Aripiprazole [Abilify] 5 mg PO DAILY 11/04/17 Atorvastatin Ca [Lipitor] 40 mg PO HS 11/04/17 Baclofen 20 mg PO QID 11/04/17 Bupropion HCl [Bupropion HCl Sr] 150 mg PO DAILY 11/04/17 Clonazepam [Klonopin] 2 mg PO DAILY 11/04/17 Clonazepam [Klonopin] 4 mg PO HS 11/04/17 Docusate Sodium [Colace] 300 mg PO HS 11/04/17 Furosemide [Lasix] 40 mg PO DAILY 11/04/17 Levothyroxine [Synthroid -] 150 mcg PO DAILY 11/04/17 Omeprazole 20 mg PO DAILY 11/04/17 Venlafaxine HCl ER [Effexor Xr -] 150 mg PO DAILY 11/04/17 Oxycodone HCl 5 mg PO Q4HWA PRN MDD 6 01/16/18 Trazodone HCl 100 mg PO HS 01/16/18 dc snf
[2018-01-25] MEDS: ATORVASTATIN CA 40 MG TABLET (FP) PO SCH (21:36)
[2018-01-25] MEDS: LACTULOSE 20 GM/30 ML UDC (FOR ORAL USE ONLY) PO SCH (21:36)
[2018-01-25] MEDS: traZODone HCL 50 MG TABLET (FP) PO SCH (21:37)
[2018-01-26] MEDS: LACTULOSE 20 GM/30 ML UDC (FOR ORAL USE ONLY) PO SCH (06:14)
[2018-01-26] MEDS: LEVOTHYROXINE NA 75 MCG TABLET (FP) PO SCH (06:14)
[2018-01-26] MEDS: oxyCODONE HCL 5 MG TABLET PO PRN (06:46)
[2018-01-26] MEDS: ACETAMINOPHEN 325 MG TABLET (FP) PO PRN (06:47)
[2018-01-26 07:08] VITALS: BP 118/73; PULSE 64; TEMP 98
[2018-01-26 07:28] LABS: BASO % 1.1 % (0-2.0); EOS % 4.3 % (0-4.5); HEMATOCRIT 36.5 % (32.4-45.2); LYMPH % 19.7 % (8-40); MCH 30.9 pg (25.7-33.7); MCHC 32.9 g/dl (32.0-36.0); MEAN CELL VOLUME 93.9 fl (80-96); MEAN PLT VOLUME 7.6 fl (7.5-11.1); MONO % 8.1 % (3.8-10.2); NEUT % 66.8 % (42.8-82.8); PLATELET COUNT 291 K/MM3 (134-434); RBC 3.89 M/mm3 (3.60-5.2); WHITE BLOOD COUNT 6.9 K/mm3 (4.0-10.0)
[2018-01-26 08:27] LABS: CHLORIDE 105 mmol/L (98-107); POTASSIUM 3.9 mmol/L (3.5-5.1); SODIUM 140 mmol/L (136-145)
--- NOTE | 2018-01-26 08:36 | PN ---
Progress Note (short form) - Note Progress Note: Pt seen. She was seen at the bedside yesterday with the freezer laboratory technician who will make a custom orthotic for the left ankle, and we will see how well she can walk/ function with the boot. She understands the plan. She can now be DC'd from an orthopedic pov. She is only Toe Touch Weight Bearing/ TTWB for the next 4 weeks, with or without the boot. She understands this. She is to follow up as an out pt in my office for repeat xrays in 2 weeks, we will examine the orthotic at that time.
[2018-01-26] MEDS ORDERED: PT OWN MED DRAWER 7, Y5N ONE (09:00)
[2018-01-26 09:09] LABS: ALBUMIN 3.5 g/dl (3.4-5.0); ALK PHOS 137 U/L (45-117); ANION GAP 8 MMOL/L (8-16); BILIRUBIN,TOTAL 0.3 mg/dL (0.2-1.0); BLOOD UREA NITROGEN 13 mg/dL (7-18); CALCIUM 9.1 mg/dL (8.5-10.1); CO2 27 mmol/L (21-32); CREATININE 0.6 mg/dL (0.55-1.02); GLUCOSE,RANDOM 98 mg/dL (74-106); SGOT/AST 13 U/L (15-37); SGPT/ALT 17 U/L (12-78); TOT PROT 7.6 g/dl (6.4-8.2)
[2018-01-26] MEDS: clonazePAM 2 MG TABLET PO SCH (09:10)
[2018-01-26] MEDS: VENLAFAXINE HCL 75 MG E.R. CAPSULES (FP) PO SCH (09:10)
[2018-01-26] MEDS: ARIPiprazole 5 MG TABLET (FP) PO SCH (09:10)
[2018-01-26] MEDS: HEPARIN NA (PORCINE) 5,000 UNITS/ML 1ML VIAL SQ SCH (09:10)
[2018-01-26] MEDS: FUROSEMIDE 40 MG TABLET (FP) PO SCH (09:11)
[2018-01-26] MEDS: GABAPENTIN 100 MG CAPSULE (FP) PO SCH (09:11)
[2018-01-26] MEDS: PANTOPRAZOLE 20 MG TABLET (FP) PO SCH (09:11)
[2018-01-26] MEDS: BACLOFEN 10 MG TABLET (FP) PO SCH (09:11)
[2018-01-26] MEDS: POLYETHYLENE GLYCOL 3350 119 GM BTL PO SCH (09:21)
--- NOTE | 2018-01-26 10:39 | PN ---
Progress Note, Physician History of Present Illness: doing well no complaints ortho note noted repeat cx noted - Current Medication List Current Medications: Active Medications Acetaminophen (Tylenol -) 650 mg PO Q6H PRN PRN Reason: PAIN SCALE 5-10 Last Admin: 01/26/18 06:47 Dose: 650 mg Aripiprazole (Abilify) 5 mg PO DAILY [facility] Last Admin: 01/26/18 09:10 Dose: 5 mg Atorvastatin Calcium (Lipitor -) 40 mg PO HS [facility] Last Admin: 01/25/18 21:36 Dose: 40 mg Baclofen (Lioresal -) 20 mg PO QID [facility] Last Admin: 01/26/18 09:11 Dose: 20 mg Bupropion HCl (Wellbutrin Xl -) 150 mg PO DAILY [facility] Last Admin: 01/26/18 09:11 Dose: 150 mg Clonazepam (Klonopin -) 4 mg PO HS [facility] Last Admin: 01/25/18 21:36 Dose: 4 mg Clonazepam (Klonopin -) 2 mg PO DAILY [facility] Last Admin: 01/26/18 09:10 Dose: 2 mg Furosemide (Lasix -) 40 mg PO DAILY [facility] Last Admin: 01/26/18 09:11 Dose: 40 mg Gabapentin (Neurontin -) 200 mg PO BID [facility] Last Admin: 01/26/18 09:11 Dose: 200 mg Heparin Sodium (Porcine) (Heparin -) 5,000 unit SQ BID [facility] Last Admin: 01/26/18 09:10 Dose: 5,000 unit Lactulose (Cephulac (Oral Use)) 20 gm PO TID [facility] Last Admin: 01/26/18 06:14 Dose: 20 gm Levothyroxine Sodium (Synthroid -) 150 mcg PO 0700 [facility] Last Admin: 01/26/18 06:14 Dose: 150 mcg Magnesium Hydroxide (Milk Of Magnesia -) 30 ml PO DAILY PRN PRN Reason: CONSTIPATION Last Admin: 01/25/18 20:41 Dose: 30 ml Oxycodone HCl (Roxicodone -) 10 mg PO Q6H PRN PRN Reason: PAIN SCALE 5-10 Last Admin: 01/26/18 06:46 Dose: 10 mg Pantoprazole Sodium (Protonix -) 20 mg PO DAILY [facility] Last Admin: 01/26/18 09:11 Dose: 20 mg Polyethylene Glycol (Miralax (For Daily Use) -) 17 gm PO DAILY [facility] Last Admin: 01/26/18 09:21 Dose: 17 grams Trazodone HCl (Desyrel -) 100 mg PO HS [facility] Last Admin: 01/25/18 21:37 Dose: 100 mg Venlafaxine HCl (Effexor Xr -) 150 mg PO DAILY [facility] Last Admin: 01/26/18 09:10 Dose: 150 mg - Objective Vital Signs: Vital Signs Temperature 98 F 01/26/18 07:06 Pulse Rate 64 01/26/18 07:06 Respiratory Rate 18 01/26/18 07:06 Blood Pressure 118/73 01/26/18 07:06 O2 Sat by Pulse Oximetry (%) 95 01/25/18 20:45 Constitutional: Yes: No Distress, Calm Cardiovascular: Yes: Regular Rate and Rhythm Respiratory: Yes: Regular, CTA Bilaterally Gastrointestinal: Yes: Normal Bowel Sounds, Soft Breast(s): Yes: WNL Musculoskeletal: Yes: Other Extremities: Yes: Other (fracture left ankle) Neurological: Yes: Alert, Oriented Psychiatric: Yes: Alert, Oriented Labs: CBC, BMP 01/26/18 07:00 01/26/18 07:00 Assessment/Plan gm positive bacteremia left ankle injury Problem List - Problems (1) Cellulitis Code(s): L03.90 - CELLULITIS, UNSPECIFIED Qualifiers: (2) Hypothyroidism Code(s): E03.9 - HYPOTHYROIDISM, UNSPECIFIED fracture left ankle plan continue to watch without abx patient doing well rest as per the team and ortho
--- NOTE | 2018-01-26 18:55 | DS ---
Physical Examination Vital Signs: Vital Signs Temperature 98 F 01/26/18 07:06 Pulse Rate 64 01/26/18 07:06 Respiratory Rate 18 01/26/18 07:06 Blood Pressure 118/73 01/26/18 07:06 O2 Sat by Pulse Oximetry (%) 95 01/25/18 20:45 Constitutional: Yes: No Distress HENT: Yes: Atraumatic Neck: Yes: Supple Cardiovascular: Yes: Regular Rate and Rhythm Respiratory: Yes: CTA Bilaterally Gastrointestinal: Yes: Normal Bowel Sounds Extremities: Yes: Other (left ankle swollen) Neurological: Yes: Alert, Oriented Labs: CBC, BMP 01/26/18 07:00 01/26/18 07:00 Discharge Summary Reason For Visit: CELLULITIS; VENOUS INSUFFICIENCY Condition: Stable - Instructions Referrals: Babar Garcia MD [Primary Care Provider] - Disposition: [facility] - Home Medications Comprehensive Discharge Medication List: Ambulatory Orders Aripiprazole [Abilify] 5 mg PO DAILY 11/04/17 Atorvastatin Ca [Lipitor] 40 mg PO HS 11/04/17 Baclofen 20 mg PO QID 11/04/17 Bupropion HCl [Bupropion HCl Sr] 150 mg PO DAILY 11/04/17 Clonazepam [Klonopin] 2 mg PO DAILY 11/04/17 Clonazepam [Klonopin] 4 mg PO HS 11/04/17 Docusate Sodium [Colace] 300 mg PO HS 11/04/17 Furosemide [Lasix] 40 mg PO DAILY 11/04/17 Levothyroxine [Synthroid -] 150 mcg PO DAILY 11/04/17 Omeprazole 20 mg PO DAILY 11/04/17 Venlafaxine HCl ER [Effexor Xr -] 150 mg PO DAILY 11/04/17 Oxycodone HCl 5 mg PO Q4HWA PRN MDD 6 01/16/18 Trazodone HCl 100 mg PO HS 01/16/18 dc snf
== END 2018-01-26 12:16 | DRG 342 ==
LOC: JER 12:15 → JERBED 16:08 → J8W 18:00
PROVIDERS: ADMIT Internal Medicine; ATTEND Internal Medicine
DX: S82.62XA Displaced fracture of lateral malleolus of left fibula, initial encounter for closed fracture (principal); L03.116 Cellulitis of left lower limb; T84.117A Breakdown (mechanical) of internal fixation device of bone of left lower leg, initial encounter; E03.9 Hypothyroidism, unspecified; E78.5 Hyperlipidemia, unspecified; F32.9 Major depressive disorder, single episode, unspecified; F41.9 Anxiety disorder, unspecified; E66.9 Obesity, unspecified; Z68.39 Body mass index [BMI] 39.0-39.9, adult; W23.0XXA Caught, crushed, jammed, or pinched between moving objects, initial encounter; Y93.89 Activity, other specified; Y92.89 Other specified places as the place of occurrence of the external cause; Y99.8 Other external cause status; Y83.8 Other surgical procedures as the cause of abnormal reaction of the patient, or of later complication, without mention of misadventure at the time of the procedure; F17.210 Nicotine dependence, cigarettes, uncomplicated; R78.81 Bacteremia; I73.89 Other specified peripheral vascular diseases
CPT/HCPCS: 36415; 73610-TC-LT-FY; 73630-TC-LT; 80053; 83605; 85025; 87040; 87076; 87077; 93971-TC; 97116-GP; 97162-GP; 99281-25; J0475; J1644; J3243

== ENCOUNTER 2019-06-21 11:35 | Inpatient (IN) | payer OTHER ==
[2019-06-21 11:54] VITALS: BMI 35.1
--- NOTE | 2019-06-21 12:32 | PDOC ---
History of Present Illness - General Chief Complaint: Abscess Boil Stated Complaint: Abscess Boil Time Seen by Provider: 06/21/19 12:13 - History of Present Illness Initial Comments: 06/21/19 12:32 HPI: 63 y/o F with hx of HTN, HLD, hypothyroid, recurrent cellulitis presenting with acute onset of swelling, redness and pain of her right lower jaw since she woke up this morning. Pain is 10/10 and non radiating. She states she has been feeling a hard lump in that area for the past couple months but this morning it worsened and she now has the large hard mass. Denies fever, chills, chest pain, abd pain, n/v, dysphagia, odynophagia, voice changes, dysuria. Of note, she reports getting over a laryngitis from last week. PMHx: as noted above ROS: as noted SHx: 3-4 cigs/day tobacco use; no alcohol use; no rec drugs Allergies: NKDA ROS: GENERAL/CONSTITUTIONAL: No fever or chills. No weakness. HEAD, EYES, EARS, NOSE AND THROAT: No change in vision. No ear pain or discharge. No sore throat. CARDIOVASCULAR: No chest pain or shortness of breath RESPIRATORY: No cough, wheezing, or hemoptysis. GASTROINTESTINAL: No nausea, vomiting, diarrhea or constipation. GENITOURINARY: No dysuria, frequency, or change in urination. MUSCULOSKELETAL: No joint or muscle swelling or pain. No neck or back pain. SKIN: +swelling NEUROLOGIC: No headache, vertigo, loss of consciousness, or change in strength/ sensation. ENDOCRINE: No increased thirst. No abnormal weight change HEMATOLOGIC/LYMPHATIC: No anemia, easy bleeding, or history of blood clots. ALLERGIC/IMMUNOLOGIC: No hives or skin allergy. PE: GENERAL: Awake, alert, and fully oriented, no acute distress HEAD: No signs of trauma, normocephalic, atraumatic EYES: EOMI, sclera anicteric, conjunctiva clear ENT: Auricles normal inspection, hearing grossly normal, nares patent, oropharynx clear without exudates. Moist mucosa NECK: 3x3cm mass at inferior border of right mandible with central area of erythema, indurated without any fluctuance, ttp, no drainage; no intraoral lesions, erythema, purulence, ttp, angioedema LUNGS: No increased work of breathing, symmetrical chest rise, clear to auscultation bilaterally, no wheezes, crackles or rhonchi HEART: Regular rate, regular rhythm, normal S1 and S2, no murmur, peripheral pulses 2+ and equal bilaterally. ABDOMEN: Soft, nondistended, nontender, normoactive bowel sounds. No guarding, no rebound. No masses. No CVAT MUSCULOSKELETAL: Normal inspection, FROM NEUROLOGICAL: Cranial nerves II through XII grossly intact. Normal speech, normal gait, no focal sensorimotor deficits SKIN: Warm, Dry, normal turgor, no rashes or lesions noted Past History - Past Medical History Allergies/Adverse Reactions: Allergies Allergy/AdvReac Type Severity Reaction Status Date / Time bee venom protein (honey bee) Allergy Verified 06/21/19 11:47 cephalexin monohydrate Allergy Verified 06/21/19 11:47 [From Keflex] clindamycin Allergy Verified 06/21/19 11:47 peanut Allergy Verified 06/21/19 11:47 strawberry Allergy Verified 06/21/19 11:47 Sulfa (Sulfonamide Allergy Verified 06/21/19 11:47 Antibiotics) Home Medications: Ambulatory Orders Aripiprazole [Abilify] 5 mg PO DAILY 11/04/17 Atorvastatin Ca [Lipitor] 40 mg PO HS 11/04/17 Baclofen 20 mg PO QID 11/04/17 Bupropion HCl [Bupropion HCl Sr] 150 mg PO DAILY 11/04/17 Docusate Sodium [Colace] 300 mg PO HS 11/04/17 Levothyroxine [Synthroid -] 150 mcg PO DAILY 11/04/17 Omeprazole 20 mg PO DAILY 11/04/17 Venlafaxine HCl ER [Effexor Xr -] 150 mg PO DAILY 11/04/17 Cholecalciferol (Vitamin D3) [Vitamin D3] 1,000 unit PO DAILY 05/09/19 Clonazepam [Klonopin] 1 mg PO BID 05/09/19 Ergocalciferol (Vitamin D2) [Vitamin D2] 50,000 unit PO Q7D 05/09/19 Furosemide [Lasix -] 20 mg PO DAILY 05/09/19 Gabapentin [Neurontin -] 300 mg PO Q8H 05/09/19 Lidocaine [Aspercreme] 1 each TP DAILY #30 adh..patch 05/09/19 Lisinopril [Prinivil] 5 mg PO DAILY 05/09/19 Metoclopramide HCl [Reglan -] 10 mg PO AC PRN 05/09/19 Polyethylene Glycol 3350 [Miralax (For Bowel Prep) -] 17 gm PO DAILY 05/09/19 traZODone HCL [Trazodone HCl] 200 mg PO HS 05/09/19 Oxycodone HCl/Acetaminophen [Percocet 10-325 mg Tablet] 1 each PO BID #60 tablet MDD 2 06/08/19 Oxycodone HCl/Acetaminophen [Percocet 10-325 mg Tablet] 1 each PO BID PRN #60 tablet MDD 2 06/12/19 Oxycodone HCl/Acetaminophen [Endocet 10-325 mg Tablet] 1 each PO BID PRN #60 tablet MDD 2 06/13/19 Anemia: No Asthma: No Cancer: No Cardiac Disorders: No CVA: No COPD: No CHF: No Dementia: No Diabetes: Yes GI Disorders: No Disorders: No HTN: Yes Hypercholesterolemia: Yes Liver Disease: No Psychiatric Problems: Yes (anxiety, borderline pesonality, depression) Seizures: No Thyroid Disease: Yes (hypo) - Surgical History Abdominal Surgery: No Appendectomy: No Cardiac Surgery: No Cholecystectomy: No Lung Surgery: No Neurologic Surgery: Yes (back 2011, 2013 tow rods, fusion) Orthopedic Surgery: Yes (five surgeries of left ankle - pins,fusion, ) - Psycho Social/Smoking Cessation Hx Smoking History: Never smoked Have you smoked in the past 12 months: No Number of Cigarettes Smoked Daily: 4 Information on smoking cessation initiated: No Hx Alcohol Use: No Drug/Substance Use Hx: No Substance Use Type: Marijuana Hx Substance Use Treatment: Yes (outpatient [facility] 2015,2016) *Physical Exam - Vital Signs Last Vital Signs Temp Pulse Resp BP Pulse Ox 98.4 F 74 18 117/61 99 06/21/19 11:52 06/21/19 11:52 06/21/19 11:52 06/21/19 11:52 06/21/19 11:52 ED Treatment Course - LABORATORY CBC & Chemistry Diagram: 06/21/19 12:58 06/21/19 12:58 Medical Decision Making - Medical Decision Making 06/21/19 13:34 63 y/o F with hx of HTN, HLD, hypothyroid, recurrent cellulitis presenting with right inferior mandibular celluliitis with underlying subcutaneous mass concerning for abscess. VSS, AF. PE with 3x3cm mass at inferior border of right mandible with central area of erythema, indurated without any fluctuance, ttp, no drainage; no intraoral lesions, erythema, purulence, ttp, angioedema. DDx concerning for cellulitis with abscess. Ludwigs lower on ddx given no stridor on exam, clearing secretions, no change in voice or PO tolerance. -cbc, cmp, coags, esr, crp, Bcx, ekg, CT neck with contrast -ofirmev, vanc 06/21/19 17:41 CT: IMPRESSION: Low-attenuation masslike density along the inferior margin of the right mandibular body measuring 3.2 x 2.4 cm with rim enhancement and adjacent stranding/ subcutaneous inflammatory changes suggestive of an abscess. A few almost borderline right submandibular and right upper neck lymph nodes are present. The airway is patent and symmetric without narrowing. Extensive hardware in the cervical and included upper thoracic spine, as described above. 06/21/19 17:41 Laboratory Tests 06/21/19 06/21/19 12:58 12:58 WBC 11.8 H ESR 44 H C-Reactive Protein 1.0 H I&D performed at the bedside and 10-15cc purulence expressed [facility] to [facility] - Discharge Information Problems reviewed: Yes Clinical Impression/Diagnosis: Abscess Cellulitis Qualifiers: Site of cellulitis: face Qualified Code(s): L03.211 - Cellulitis of face Condition: Improved - Follow up/Referral - Patient Discharge Instructions - Post Discharge Activity
[2019-06-21] MEDS ORDERED: ACETAMINOPHEN 1000 MG/100 ML VIAL (NON FORMULARY) IVPB ONE (13:01)
[2019-06-21] MEDS ORDERED: ACETAMINOPHEN INJECTION 100 ML IVPB ONE (13:25)
[2019-06-21] MEDS ORDERED: VANCOMYCIN 1 GM PREMIX - 1 GM/200 ML BAG IVPB ONE (13:34)
[2019-06-21 13:36] LABS: BASO % 0.6 % (0-2.0); EOS % 0.7 % (0-4.5); HEMATOCRIT 31.7 % (32.4-45.2); HEMOGLOBIN 10.3 GM/dL (10.7-15.3); LYMPH % 10.9 % (8-40); MCH 28.7 pg (25.7-33.7); MCHC 32.3 g/dl (32.0-36.0); MEAN CELL VOLUME 88.7 fl (80-96); MONO % 8.5 % (3.8-10.2); NEUT % 79.3 % (42.8-82.8); PLATELET COUNT 186 K/MM3 (134-434); RBC 3.57 M/mm3 (3.60-5.2); RDW 17.9 % (11.6-15.6); WHITE BLOOD COUNT 11.8 K/mm3 (4.0-10.0)
[2019-06-21 13:44] LABS: INR 0.92 (0.83-1.09); PROTHROMBIN TIME (PATIENT) 10.9 SEC (9.7-13.0)
[2019-06-21] MEDS ORDERED: VANCOMYCIN 1 GRAM (PRE-DOCKED) 1,000 MG/250 ML BAG IVPB ONE (13:45)
[2019-06-21 13:47] LABS: ACTIVATED PTT 32.2 SECONDS (25.2-36.5)
--- NOTE | 2019-06-21 13:50 | PDOC ---
Documentation entered by Tiffany Hernandez SCRIBE, acting as scribe for Lloyd Moulton MD. Lloyd Moulton MD: This documentation has been prepared by the David berrios Brenda, SCRIBE, under my direction and personally reviewed by me in its entirety. I confirm that the documentation accurately reflects all work, treatment, procedures, and medical decision making performed by me. Attending Attestation - Resident Resident Name: AlexisBerthashyam - ED Attending Attestation I have performed the following: I have examined & evaluated the patient, The case was reviewed & discussed with the resident, I agree w/resident's findings & plan, Exceptions are as noted - HPI HPI: 06/21/19 13:51 63 F with h/o HTN, HLD, hypothyroid, presenting to ED with swelling and pain to her R jaw. Pt states that she has had a firm lump under her skin in that area for several months. However, last night, it began to get swollen and tender. This morning, pt noticed redness surrounding it. Denies F/C. Denies any drainage from the area. - Physicial Exam PE: 06/21/19 13:52 "GENERAL: Awake, alert, and fully oriented, in no acute distress. HEAD: No signs of trauma EYES: PERRLA, EOMI, sclera anicteric, conjunctiva clear ENT: Auricles normal inspection, hearing grossly normal, nares patent, oropharynx clear without exudates. Moist mucosa NECK: Nontender, no stepoffs, Normal ROM, supple, no lymphadenopathy, JVD, or masses LUNGS: Breath sounds equal, clear to auscultation bilaterally. No wheezes, and no crackles HEART: Regular rate and rhythm, normal S1 and S2, no murmurs, rubs or gallops ABDOMEN: Soft, nontender, normoactive bowel sounds. No guarding, no rebound. No masses EXTREMITIES: Normal range of motion, no edema. No clubbing or cyanosis. No cords, erythema, or tenderness NEUROLOGICAL: Cranial nerves II through XII intact. 5/5 strength and sensation in all extremities, Normal speech, normal gait, normal cerebellar function SKIN: + erythema + induration + fluctuance to inferior R jaw - Medical Decision Making 06/21/19 13:52 63 F with swelling and redness to R jaw. Suspect abscess vs infected cyst. - labs, cultures - CT neck/soft tissue with IV contrast - I&D
[2019-06-21 13:58] LABS: ALBUMIN 3.6 g/dl (3.4-5.0); BILIRUBIN,TOTAL 0.2 mg/dL (0.2-1); BLOOD UREA NITROGEN 9.5 mg/dL (7-18); CALCIUM 8.8 mg/dL (8.5-10.1); CREATININE 0.6 mg/dL (0.55-1.3); POTASSIUM 3.7 mmol/L (3.5-5.1); TOT PROT 6.5 g/dl (6.4-8.2)
[2019-06-21 14:17] LABS: ERYTHROCYTE SEDIMENTATION RATE 44 mm/hr (0-30)
[2019-06-21] MEDS ORDERED: LIDOCAINE HCL 1%, 10 MG/ML (20ML VIAL) ONE (16:33)
[2019-06-21] MEDS ORDERED: BACLOFEN 10 MG TABLET (FP) ONE (16:47)
--- NOTE | 2019-06-21 17:08 | PN ---
Teaching Attending Note Name of Resident: Zheng Mota ATTENDING PHYSICIAN STATEMENT I saw and evaluated the patient. I reviewed the resident's note and discussed the case with the resident. I agree with the resident's findings and plan as documented. SUBJECTIVE: Right submandibular pain and swelling for possibilities OBJECTIVE: Vital Signs Temperature 98.4 F 06/21/19 11:52 Pulse Rate 74 06/21/19 11:52 Respiratory Rate 18 06/21/19 11:52 Blood Pressure 117/61 06/21/19 11:52 O2 Sat by Pulse Oximetry (%) 99 06/21/19 11:52 General: Elderly woman, in discomfort due to pain not in distress HEENT; right submandibular abscess status post I&D by the ED resident, mucous membranes moist, no anemia, no jaundice, PERRLA, no nystagmus Neck: No JVD, supple, no bruit, thyroid palpably normal, normal carotid pulsations. Chest: Nontender, clear to auscultation bilaterally CVS: S1-S2 regular no murmur/gallop/rub Abdomen: Nondistended, soft, bowel sounds present. Extremities: No edema., No calf tenderness, pulses present SENIOR QC TECHNICIAN: AO X3 , no gross motor sensory deficit CBC,CMP WBC 11.8 K/mm3 (4.0-10.0) H 06/21/19 12:58 RBC 3.57 M/mm3 (3.60-5.2) L 06/21/19 12:58 Hgb 10.3 GM/dL (10.7-15.3) L 06/21/19 12:58 Hct 31.7 % (32.4-45.2) L 06/21/19 12:58 MCV 88.7 fl (80-96) 06/21/19 12:58 MCH 28.7 pg (25.7-33.7) 06/21/19 12:58 MCHC 32.3 g/dl (32.0-36.0) 06/21/19 12:58 RDW 17.9 % (11.6-15.6) H 06/21/19 12:58 Plt Count 186 K/MM3 (134-434) D 06/21/19 12:58 MPV 9.0 fl (7.5-11.1) D 06/21/19 12:58 Absolute Neuts (auto) 9.4 K/mm3 (1.5-8.0) H 06/21/19 12:58 Neutrophils % 79.3 % (42.8-82.8) 06/21/19 12:58 Lymphocytes % 10.9 % (8-40) D 06/21/19 12:58 Monocytes % 8.5 % (3.8-10.2) 06/21/19 12:58 Eosinophils % 0.7 % (0-4.5) D 06/21/19 12:58 Basophils % 0.6 % (0-2.0) 06/21/19 12:58 Nucleated RBC % 0 % (0-0) 06/21/19 12:58 ESR 44 mm/hr (0-30) H 06/21/19 12:58 Sodium 135 mmol/L (136-145) L 06/21/19 12:58 Potassium 3.7 mmol/L (3.5-5.1) 06/21/19 12:58 Chloride 102 mmol/L (98-107) 06/21/19 12:58 Carbon Dioxide 28 mmol/L (21-32) 06/21/19 12:58 Anion Gap 4 MMOL/L (8-16) L 06/21/19 12:58 BUN 9.5 mg/dL (7-18) 06/21/19 12:58 Creatinine 0.6 mg/dL (0.55-1.3) 06/21/19 12:58 Est GFR (CKD-EPI)AfAm 111.64 06/21/19 12:58 Est GFR (CKD-EPI)NonAf 96.33 06/21/19 12:58 Random Glucose 86 mg/dL (74-106) 06/21/19 12:58 Calcium 8.8 mg/dL (8.5-10.1) 06/21/19 12:58 Total Bilirubin 0.2 mg/dL (0.2-1) 06/21/19 12:58 AST 16 U/L (15-37) 06/21/19 12:58 ALT 23 U/L (13-61) 06/21/19 12:58 Alkaline Phosphatase 105 U/L (45-117) 06/21/19 12:58 C-Reactive Protein 1.0 MG/DL (0.00-0.3) H 06/21/19 12:58 Total Protein 6.5 g/dl (6.4-8.2) 06/21/19 12:58 Albumin 3.6 g/dl (3.4-5.0) 06/21/19 12:58 EK normal sinus rhythm no acute ST-T changes. CT scan soft tissue neck: 3.2X2.4 centimeters globular mass suggestive of abscess ASSESSMENT AND PLAN: 63-year-old female resident of [facility] , history of bipolar disorder, hypertension hypothyroidism obesity BMI 35 , chronic neck pain status post cervical spine surgery, poor oral hygiene presented right submandibular swelling with redness and pain acute onset CT scan suggestive of abscess, I&D performed in the ED is being admitted for further management.. Impression: Right submandibular mass/abscess Problem List - Problems (1) Mass of right submandibular region Assessment/Plan: Acute onset with inflammatory changes CT scan shows a 3.2 x2.4 mass suggestive of abscess, status post I&D in the ED, pain controlled at present no airways involvement, will continue IV antibiotic Unasyn and vancomycin pending culture result, ID consult, ENT consult. Problems reviewed: Yes Code(s): R22.0 - LOCALIZED SWELLING, MASS AND LUMP, HEAD (2) Bipolar 1 disorder Assessment/Plan: Resume home medications Problems reviewed: Yes Code(s): F31.9 - BIPOLAR DISORDER, UNSPECIFIED (3) HTN (hypertension) Assessment/Plan: Resume home medication Problems reviewed: Yes Code(s): I10 - ESSENTIAL (PRIMARY) HYPERTENSION (4) Hypothyroidism Assessment/Plan: Resume home medication Problems reviewed: Yes Code(s): E03.9 - HYPOTHYROIDISM, UNSPECIFIED
[2019-06-21] MEDS ORDERED: LIDOCAINE HCL 1%, 10 MG/ML (50 mL VIAL) SQ ONE (17:10)
[2019-06-21] MEDS ORDERED: BACLOFEN 10 MG TABLET (FP) PO ONE (17:10)
[2019-06-21] MEDS ORDERED: PATIENT'S OWN MEDICATION (NON-FORMULARY) (Oxycodone Hcl/Acetaminophen [Endocet 10-325 Mg T PO PRN (17:11)
[2019-06-21] MEDS ORDERED: METOCLOPRAMIDE HCL 10 MG TABLET (FP) PO PRN (17:11)
[2019-06-21] MEDS ORDERED: SODIUM CHLORIDE 1,000 ML IV SCH (17:30)
--- NOTE | 2019-06-21 17:34 | HP ---
CHIEF COMPLAINT: infection HISTORY OF PRESENT ILLNESS: 63 yo F with hx of HTN, HLD, depression, anxiety, hypothyroid, recurrent cellulitis presenting from [facility], with acute onset of swelling, redness and 10/10 pain of her right lower jaw since she woke up this morning. She says for the past couple of months she's felt a hard lump and it has gotten worse over the last few days. She has been admitted in the past for recurrent LE cellulitis. Shes Denies fever, chills, chest pain, abd pain, n/v, dysphagia, odynophagia, voice changes, dysuria. ER course was notable for: (1) CT scan soft tissue neck: 3.2X2.4 centimeters globular mass suggestive of abscess (2) s/p I&D performed in the ER (3) Vanc in ER Recent Travel: denies PAST MEDICAL HISTORY: per HPI PAST SURGICAL HISTORY: "many surgeries" Social History: Smokin-4 ciggs a day Alcohol: denies Drugs: denies Allergies bee venom protein (honey bee) Allergy (Verified 06/21/19 11:47) cephalexin monohydrate [From Keflex] Allergy (Verified 06/21/19 11:47) clindamycin Allergy (Verified 06/21/19 11:47) peanut Allergy (Verified 06/21/19 11:47) strawberry Allergy (Verified 06/21/19 11:47) Sulfa (Sulfonamide Antibiotics) Allergy (Verified 06/21/19 11:47) HOME MEDICATIONS: Home Medications Medication Instructions Recorded Aripiprazole [Abilify] 5 mg PO DAILY 11/04/17 Atorvastatin Ca [Lipitor] 40 mg PO HS 11/04/17 Baclofen 20 mg PO QID 11/04/17 Bupropion HCl [Bupropion HCl Sr] 150 mg PO DAILY 11/04/17 Docusate Sodium [Colace] 300 mg PO HS 11/04/17 Levothyroxine [Synthroid -] 150 mcg PO DAILY 11/04/17 Omeprazole 20 mg PO DAILY 11/04/17 Venlafaxine HCl ER [Effexor Xr -] 150 mg PO DAILY 11/04/17 Cholecalciferol (Vitamin D3) 1,000 unit PO DAILY 05/09/19 [Vitamin D3] Clonazepam [Klonopin] 1 mg PO BID 05/09/19 Ergocalciferol (Vitamin D2) 50,000 unit PO Q7D 05/09/19 [Vitamin D2] Furosemide [Lasix -] 20 mg PO DAILY 05/09/19 Gabapentin [Neurontin -] 300 mg PO Q8H 05/09/19 Lidocaine [Aspercreme] 1 each TP DAILY #30 adh..patch 05/09/19 Lisinopril [Prinivil] 5 mg PO DAILY 05/09/19 Metoclopramide HCl [Reglan -] 10 mg PO AC PRN 05/09/19 Polyethylene Glycol 3350 [Miralax 17 gm PO DAILY 05/09/19 (For Bowel Prep) -] traZODone HCL [Trazodone HCl] 200 mg PO HS 05/09/19 Oxycodone HCl/Acetaminophen 1 each PO BID #60 tablet MDD 2 06/08/19 [Percocet 10-325 mg Tablet] Oxycodone HCl/Acetaminophen 1 each PO BID PRN #60 tablet MDD 2 06/12/19 [Percocet 10-325 mg Tablet] Oxycodone HCl/Acetaminophen 1 each PO BID PRN #60 tablet MDD 2 06/13/19 [Endocet 10-325 mg Tablet] REVIEW OF SYSTEMS per HPI PHYSICAL EXAMINATION Vital Signs - 24 hr 06/21/19 11:52 Temperature 98.4 F Pulse Rate 74 Respiratory 18 Rate Blood Pressure 117/61 O2 Sat by Pulse 99 Oximetry (%) GENERAL: in NAD HEAD: Normal with no signs of trauma. EYES: Pupils equal, round and reactive to light EARS, NOSE, THROAT: NECK: right submandibular abscess s/p I&D LUNGS: lungs cta b/l HEART: RRR ABDOMEN: obese, Soft, nontender, not distended, normoactive bowel sounds LOWER EXTREMITIES: 2+ pulses, No peripheral edema. Laboratory Results - last 24 hr 06/21/19 06/21/19 06/21/19 12:58 12:58 12:58 WBC 11.8 H RBC 3.57 L Hgb 10.3 L Hct 31.7 L MCV 88.7 MCH 28.7 MCHC 32.3 RDW 17.9 H Plt Count 186 D MPV 9.0 D Absolute Neuts (auto) 9.4 H Neutrophils % 79.3 Lymphocytes % 10.9 D Monocytes % 8.5 Eosinophils % 0.7 D Basophils % 0.6 Nucleated RBC % 0 ESR 44 H PT with INR 10.90 INR 0.92 PTT (Actin FS) 32.2 Sodium Potassium Chloride Carbon Dioxide Anion Gap BUN Creatinine Est GFR (CKD-EPI)AfAm Est GFR (CKD-EPI)NonAf Random Glucose Calcium Total Bilirubin AST ALT Alkaline Phosphatase C-Reactive Protein 1.0 H Total Protein Albumin 06/21/19 12:58 WBC RBC Hgb Hct MCV MCH MCHC RDW Plt Count MPV Absolute Neuts (auto) Neutrophils % Lymphocytes % Monocytes % Eosinophils % Basophils % Nucleated RBC % ESR PT with INR INR PTT (Actin FS) Sodium 135 L Potassium 3.7 Chloride 102 Carbon Dioxide 28 Anion Gap 4 L BUN 9.5 Creatinine 0.6 Est GFR (CKD-EPI)AfAm 111.64 Est GFR (CKD-EPI)NonAf 96.33 Random Glucose 86 Calcium 8.8 Total Bilirubin 0.2 AST 16 ALT 23 Alkaline Phosphatase 105 C-Reactive Protein Total Protein 6.5 Albumin 3.6 ASSESSMENT/PLAN: #Submandibular Abscess -patient not septic -s/p I&D drainage -Cont. vanc and flagyl. allergic to clinda, pencillins -ID consult -will consider ENT evaluation in the morning #Bipolar disorder -cont home med #anxiety/depression -cont home med #Hypothyroidism -cont home med #FEN -normal saline 75ml/hour -monitor -soft diet #dvt ppx -hep sq Visit type - Emergency Visit Emergency Visit: Yes ED Registration Date: 06/21/19 Care time: The patient presented to the Emergency Department on the above date and was hospitalized for further evaluation of their emergent condition. - New Patient This patient is new to me today: Yes Date on this admission: 06/21/19 - Critical Care Critical Care patient: No ATTENDING PHYSICIAN STATEMENT I saw and evaluated the patient. I reviewed the resident's note and discussed the case with the resident. I agree with the resident's findings and plan as documented. SUBJECTIVE: OBJECTIVE: ASSESSMENT AND PLAN:
[2019-06-21] MEDS ORDERED: GABAPENTIN 100 MG CAPSULE ONE (17:38)
[2019-06-21] MEDS ORDERED: LISINOPRIL 20 MG TABLET (FP) ONE (17:38)
[2019-06-21] MEDS ORDERED: PATIENT'S OWN MEDICATION (NON-FORMULARY) (Baclofen [Baclofen] 20 MG) PO SCH (18:00)
[2019-06-21] MEDS ORDERED: traZODone HCL 50 MG TABLET (FP) ONE (20:34)
[2019-06-21] MEDS: oxyCODONE HCL 5 MG TABLET PO PRN (21:40)
[2019-06-21] MEDS: clonazePAM 0.5 MG TABLET PO SCH (21:41)
[2019-06-21] MEDS: ACETAMINOPHEN 325 MG TABLET (FP) PO PRN (21:41)
[2019-06-21] MEDS: DOCUSATE SODIUM 100 MG CAPSULE (FP) PO SCH (21:41)
[2019-06-21] MEDS: BACLOFEN 10 MG TABLET (FP) PO SCH ×2 (21:43)
[2019-06-21] MEDS: traZODone HCL 100 MG TABLET (FP) PO SCH (21:44)
[2019-06-21] MEDS: HEPARIN NA (PORCINE) 5,000 UNITS/ML 1ML VIAL SQ SCH (21:44)
[2019-06-21] MEDS: GABAPENTIN 300 MG CAPSULE PO SCH (21:45)
[2019-06-21] MEDS: ATORVASTATIN CA 40 MG TABLET (FP) PO SCH (21:45)
[2019-06-22] MEDS ORDERED: VANCOMYCIN 1 GRAM (PRE-DOCKED) 1,000 MG/250 ML BAG IVPB ONE (01:30)
[2019-06-22] MEDS: GABAPENTIN 300 MG CAPSULE PO SCH ×3 (05:12→21:42)
[2019-06-22] MEDS: LEVOTHYROXINE NA 150 MCG TABLET PO SCH (06:30)
--- NOTE | 2019-06-22 08:57 | PN ---
Teaching Attending Note Name of Resident: Zheng Mota ATTENDING PHYSICIAN STATEMENT I saw and evaluated the patient. I reviewed the resident's note and discussed the case with the resident. I agree with the resident's findings and plan as documented. SUBJECTIVE: OBJECTIVE: Vital Signs Temperature 98.7 F 06/22/19 06:11 Pulse Rate 67 06/22/19 06:11 Respiratory Rate 06/22/19 06:11 Blood Pressure 121/70 06/22/19 06:11 O2 Sat by Pulse Oximetry (%) 96 06/21/19 21:00 General: Elderly woman, in discomfort due to pain not in distress HEENT; right submandibular abscess status post I&D by the ED resident, mucous membranes moist, no anemia, no jaundice, PERRLA, no nystagmus Neck: No JVD, supple, no bruit, thyroid palpably normal, normal carotid pulsations. Chest: Nontender, clear to auscultation bilaterally CVS: S1-S2 regular no murmur/gallop/rub Abdomen: Nondistended, soft, bowel sounds present. Extremities: No edema., No calf tenderness, pulses present MINING HELPER: AO X3 , no gross motor sensory deficit CBC, BMP 06/21/19 12:58 06/21/19 12:58 EK normal sinus rhythm no acute ST-T changes. CT scan soft tissue neck: 3.2X2.4 centimeters globular mass suggestive of abscess ASSESSMENT AND PLAN: 63-year-old female resident of [facility] , history of bipolar disorder, hypertension hypothyroidism obesity BMI 35 , chronic neck pain status post cervical spine surgery, poor oral hygiene presented right submandibular swelling with redness and pain acute onset CT scan suggestive of abscess, I&D performed in the ED is being admitted for further management.. Impression: Right submandibular mass/abscess ASSESSMENT AND PLAN: Problem List - Problems (1) Mass of right submandibular region Assessment/Plan: Acute onset with inflammatory changes CT scan shows a 3.2 x2.4 mass suggestive of abscess, status post I&D in the ED, pain controlled at present no airways involvement, will continue IV Flagyl and vancomycin pending culture result, ID consult, ENT consult. Code(s): R22.0 - LOCALIZED SWELLING, MASS AND LUMP, HEAD (2) Bipolar 1 disorder Assessment/Plan: Resume home medications Code(s): F31.9 - BIPOLAR DISORDER, UNSPECIFIED (3) HTN (hypertension) Assessment/Plan: Resume home medication Code(s): I10 - ESSENTIAL (PRIMARY) HYPERTENSION (4) Hypothyroidism Assessment/Plan: Resume home medication Code(s): E03.9 - HYPOTHYROIDISM, UNSPECIFIED
[2019-06-22] MEDS ORDERED: LIDOCAINE TP SCH (10:00)
[2019-06-22] MEDS ORDERED: ERGOCALCIFEROL (VIT D2) 50,000 UNIT (1.25 MG) CAPSULE PO SCH (10:00)
[2019-06-22] MEDS ORDERED: VENLAFAXINE HCL 150 MG E.R. CAPSULE PO SCH (10:00)
[2019-06-22] MEDS: PANTOPRAZOLE 20 MG TABLET PO SCH (10:03)
[2019-06-22] MEDS: FUROSEMIDE 20 MG TABLET (FP) PO SCH (10:03)
[2019-06-22] MEDS: LISINOPRIL 5 MG TABLET (FP) PO SCH (10:03)
[2019-06-22] MEDS: clonazePAM 0.5 MG TABLET PO SCH ×2 (10:03→18:27)
[2019-06-22] MEDS: HEPARIN NA (PORCINE) 5,000 UNITS/ML 1ML VIAL SQ SCH ×2 (10:04→22:05)
[2019-06-22] MEDS: oxyCODONE HCL 5 MG TABLET PO PRN ×2 (10:21→18:27)
[2019-06-22] MEDS: BACLOFEN 10 MG TABLET (FP) PO SCH ×4 (10:21→21:42)
[2019-06-22] MEDS: ACETAMINOPHEN 325 MG TABLET (FP) PO PRN ×2 (10:22→18:27)
--- NOTE | 2019-06-22 10:57 | CON.ID ---
Consult Consult Specialty:: infectious diseases Referred by:: dr barahona Reason for Consultation:: rt sided mandibular abscess - History of Present Illness Chief Complaint: swelling of the rt side of the face History of Present Illness: 63 y/o F with hx of HTN, HLD, hypothyroid, recurrent cellulitis presenting with acute onset of swelling, redness and pain of her right lower jaw since she woke up associated with pain She states she had been feeling a hard lump in that area for the past couple months but this morning it worsened and she now has the large hard mass. Denies fever, chills, chest pain, abd pain, n/v, dysphagia , odynophagia, voice changes, dysuria. Of note, she reports getting over a laryngitis from last week. patient came to er was seen and patient underwent i and d of the abscess currently patient doing well denies any fever, - History Source History Provided By: Patient Limitations to Obtaining History: No Limitations - Past Medical History Cardio/Vascular: Yes: Hyperlipdemia Endocrine: Yes: Hypothyroidism - Alcohol/Substance Use Hx Alcohol Use: No - Smoking History Smoking history: Current every day smoker Have you smoked in the past 12 months: No Aproximately how many cigarettes per day: 4 Home Medications - Allergies Allergies/Adverse Reactions: Allergies Allergy/AdvReac Type Severity Reaction Status Date / Time nut - unspecified Allergy Mild Hives Verified 05/09/19 10:08 bee venom protein (honey bee) Allergy Verified 06/21/19 11:47 cephalexin monohydrate Allergy Verified 06/21/19 11:47 [From Keflex] clindamycin Allergy Verified 06/21/19 11:47 peanut Allergy Verified 06/21/19 11:47 strawberry Allergy Verified 06/21/19 11:47 Sulfa (Sulfonamide Allergy Verified 06/21/19 11:47 Antibiotics) - Home Medications Home Medications: Ambulatory Orders Aripiprazole [Abilify] 5 mg PO DAILY 11/04/17 Atorvastatin Ca [Lipitor] 40 mg PO HS 11/04/17 Baclofen 20 mg PO QID 11/04/17 Bupropion HCl [Bupropion HCl Sr] 150 mg PO DAILY 11/04/17 Docusate Sodium [Colace] 300 mg PO HS 11/04/17 Levothyroxine [Synthroid -] 150 mcg PO DAILY 11/04/17 Omeprazole 20 mg PO DAILY 11/04/17 Venlafaxine HCl ER [Effexor Xr -] 150 mg PO DAILY 11/04/17 Cholecalciferol (Vitamin D3) [Vitamin D3] 1,000 unit PO DAILY 05/09/19 Clonazepam [Klonopin] 1 mg PO BID 05/09/19 Ergocalciferol (Vitamin D2) [Vitamin D2] 50,000 unit PO Q7D 05/09/19 Furosemide [Lasix -] 20 mg PO DAILY 05/09/19 Gabapentin [Neurontin -] 300 mg PO Q8H 05/09/19 Lidocaine [Aspercreme] 1 each TP DAILY #30 adh..patch 05/09/19 Lisinopril [Prinivil] 5 mg PO DAILY 05/09/19 Metoclopramide HCl [Reglan -] 10 mg PO AC PRN 05/09/19 Polyethylene Glycol 3350 [Miralax (For Bowel Prep) -] 17 gm PO DAILY 05/09/19 traZODone HCL [Trazodone HCl] 200 mg PO HS 05/09/19 Oxycodone HCl/Acetaminophen [Percocet 10-325 mg Tablet] 1 each PO BID #60 tablet MDD 2 06/08/19 Oxycodone HCl/Acetaminophen [Percocet 10-325 mg Tablet] 1 each PO BID PRN #60 tablet MDD 2 06/12/19 Oxycodone HCl/Acetaminophen [Endocet 10-325 mg Tablet] 1 each PO BID PRN #60 tablet MDD 2 06/13/19 Review of Systems - Review of Systems Constitutional: reports: No Symptoms Eyes: reports: No Symptoms HENT: reports: No Symptoms Neck: reports: Other (swelling of the face rt side) Cardiovascular: reports: No Symptoms Respiratory: reports: No Symptoms Gastrointestinal: reports: No Symptoms Genitourinary: reports: No Symptoms Musculoskeletal: reports: No Symptoms Integumentary: reports: No Symptoms Neurological: reports: No Symptoms Endocrine: reports: No Symptoms Hematology/Lymphatic: reports: No Symptoms Psychiatric: reports: No Symptoms Physical Exam Vital Signs: Vital Signs Temperature 98.7 F 06/22/19 06:11 Pulse Rate 67 06/22/19 06:11 Respiratory Rate 20 06/22/19 06:11 Blood Pressure 121/70 06/22/19 06:11 O2 Sat by Pulse Oximetry (%) 96 06/21/19 21:00 Constitutional: Yes: Well Nourished, No Distress, Calm Eyes: Yes: Conjunctiva Clear HENT: Yes: Atraumatic, Normocephalic, Other (manidublar abscess,rt side exam of the oral cavity normal) Neck: Yes: Supple, Trachea Midline Cardiovascular: Yes: Regular Rate and Rhythm Respiratory: Yes: Regular, CTA Bilaterally Gastrointestinal: Yes: Normal Bowel Sounds, Soft Musculoskeletal: Yes: WNL Extremities: Yes: WNL Wound/Incision: Yes: Dressing Dry and Intact Neurological: Yes: Alert, Oriented Psychiatric: Yes: Alert, Oriented Labs: CBC, BMP 06/21/19 12:58 06/21/19 12:58 Imaging - Results Cat Scan: Report Reviewed, Image Reviewed Assessment/Plan Problem List - Problems (1) Mass of right submandibular region Problems reviewed: Yes Code(s): R22.0 - LOCALIZED SWELLING, MASS AND LUMP, HEAD (2) Bipolar 1 disorder Problems reviewed: Yes Code(s): F31.9 - BIPOLAR DISORDER, UNSPECIFIED (3) HTN (hypertension) Problems reviewed: Yes Code(s): I10 - ESSENTIAL (PRIMARY) HYPERTENSION (4) Hypothyroidism Problems reviewed: Yes Code(s): E03.9 - HYPOTHYROIDISM, UNSPECIFIED plan continue current mgmt abx await for cx rest as per the team
[2019-06-22] MEDS: ARIPiprazole 5 MG TABLET PO SCH (11:29)
--- NOTE | 2019-06-22 14:09 | EKG ---
Test Reason : Blood Pressure : / mmHG Vent. Rate : 068 BPM Atrial Rate : 068 BPM P-R Int : 156 ms QRS Dur : 096 ms QT Int : 410 ms P-R-T Axes : 042 013 046 degrees QTc Int : 435 ms NORMAL SINUS RHYTHM ABNORMAL ECG WHEN COMPARED WITH ECG OF 13-OCT-2017 12:11, NO SIGNIFICANT CHANGE WAS FOUND Confirmed by LOYDA RKAUSE MD ([id number]) on 06/22/2019 2:08:41 PM Referred By: Confirmed By:LOYDA KRAUSE MD
[2019-06-22] MEDS: POLYETHYLENE GLYCOL 3350 255 GM BTL PO SCH (14:50)
[2019-06-22 15:08] LABS: BASO % 0.9 % (0-2.0); EOS % 1.6 % (0-4.5); HEMATOCRIT 29.2 % (32.4-45.2); HEMOGLOBIN 9.6 GM/dL (10.7-15.3); LYMPH % 25.3 % (8-40); MCHC 32.8 g/dl (32.0-36.0); MEAN CELL VOLUME 88.2 fl (80-96); MEAN PLT VOLUME 8.5 fl (7.5-11.1); MONO % 7.9 % (3.8-10.2); NEUT % 64.3 % (42.8-82.8); PLATELET COUNT 181 K/MM3 (134-434); RDW 18.1 % (11.6-15.6); WHITE BLOOD COUNT 6.8 K/mm3 (4.0-10.0)
[2019-06-22 15:48] LABS: ALBUMIN 3.3 g/dl (3.4-5.0); BILIRUBIN,TOTAL 0.4 mg/dL (0.2-1); CALCIUM 8.7 mg/dL (8.5-10.1); CREATININE 0.5 mg/dL (0.55-1.3); TOT PROT 6.4 g/dl (6.4-8.2)
--- NOTE | 2019-06-22 16:26 | PN ---
Physical Exam: SUBJECTIVE: Patient seen and examined. No acute events overnight. only complains of pain at he I&D site. OBJECTIVE: Vital Signs Period Temp Pulse Resp BP Sys/Merrill Pulse Ox Last 24 Hr 97.7 F-99.5 F 67-82 18-20 100-132/49-75 94-100 GENERAL: in NAD HEAD: Normal with no signs of trauma. EYES: Pupils equal, round and reactive to light EARS, NOSE, THROAT: NECK: dressing over I &D site. firm, not bleeding. LUNGS: lungs cta b/l HEART: RRR ABDOMEN: obese, Soft, nontender, not distended, normoactive bowel sounds LOWER EXTREMITIES: 2+ pulses, No peripheral edema. Laboratory Results - last 24 hr 06/22/19 06/22/19 14:35 14:35 WBC 6.8 RBC 3.30 L Hgb 9.6 L Hct 29.2 L MCV 88.2 MCH 29.0 MCHC 32.8 RDW 18.1 H Plt Count 181 MPV 8.5 Absolute Neuts (auto) 4.4 Neutrophils % 64.3 Lymphocytes % 25.3 D Monocytes % 7.9 Eosinophils % 1.6 D Basophils % 0.9 Nucleated RBC % 0 Sodium 134 L Potassium 4.0 Chloride 100 Carbon Dioxide 27 Anion Gap 6 L BUN 10.0 Creatinine 0.5 L Est GFR (CKD-EPI)AfAm 118.54 Est GFR (CKD-EPI)NonAf 102.28 Random Glucose 77 Calcium 8.7 Total Bilirubin 0.4 AST 11 L ALT 18 Alkaline Phosphatase 99 Total Protein 6.4 Albumin 3.3 L Active Medications Generic Name Dose Route Start Last Admin Trade Name Josefq PRN Reason Stop Dose Admin Acetaminophen 325 mg 06/21/19 17:44 06/22/19 10:22 Tylenol - PO 325 mg BID PRN Administration PAIN LEVEL 7 - 10 Aripiprazole 5 mg 06/22/19 10:00 06/22/19 11:29 Abilify PO 5 mg DAILY JOVANNY Administration Atorvastatin Calcium 40 mg 06/21/19 22:00 06/21/19 21:45 Lipitor - PO 40 mg HS JOVANNY Administration Baclofen 20 mg 06/21/19 18:00 06/22/19 15:20 Lioresal - PO 20 mg QID JOVANNY Administration Bupropion HCl 150 mg 06/22/19 10:00 06/22/19 10:03 Wellbutrin Xl - PO 150 mg DAILY JOVANNY Administration Clonazepam 1 mg 06/21/19 22:00 06/22/19 10:03 Klonopin - PO 1 mg BID JOVANNY Administration Docusate Sodium 300 mg 06/21/19 22:00 06/21/19 21:41 Colace - PO 300 mg HS JOVANNY Administration Ergocalciferol 50,000 unit 06/22/19 10:00 06/22/19 11:29 Drisdol - PO 50,000 unit Q7D JOVANNY Administration Furosemide 20 mg 06/22/19 10:00 06/22/19 10:03 Lasix - PO 20 mg DAILY JOVANNY Administration Gabapentin 300 mg 06/21/19 22:00 06/22/19 15:20 Neurontin - PO 300 mg TID JOVANNY Administration Heparin Sodium (Porcine) 5,000 unit 06/21/19 22:00 06/22/19 10:04 Heparin - SQ 5,000 unit BID JOVANNY Administration Sodium Chloride 1,000 mls @ 75 mls/hr 06/21/19 17:30 06/21/19 17:47 Normal Saline - IV 75 mls/hr ASDIR JOVANNY Administration Metronidazole 500 mg in 100 mls @ 100 mls/hr 06/21/19 18:00 06/22/19 15:21 Flagyl 500mg Premixed Ivpb - IVPB 100 mls/hr Q6H-IV JOVANNY Administration Vancomycin HCl 1,250 mg/ 250 mls @ 250 mls/2 hr 06/23/19 02:00 Dextrose IVPB Q24H [facility] Protocol Lactulose 20 gm 06/22/19 12:30 Cephulac (Oral Use) PO ACHS PRN CONSTIPATION Levothyroxine Sodium 150 mcg 06/22/19 07:00 06/22/19 06:30 Synthroid - PO 150 mcg DAILY@0700 JOVANNY Administration Lisinopril 5 mg 06/22/19 10:00 06/22/19 10:03 Prinivil PO 5 mg DAILY JOVANNY Administration Metoclopramide HCl 10 mg 06/21/19 17:11 Reglan - PO TIDAC PRN NAUSEA Oxycodone HCl 10 mg 06/21/19 17:44 06/22/19 10:21 Roxicodone - PO 10 mg BID PRN Administration PAIN LEVEL 7 - 10 Pantoprazole Sodium 20 mg 06/22/19 10:00 06/22/19 10:03 Protonix - PO 20 mg DAILY JOVANNY Administration Polyethylene Glycol 17 gm 06/22/19 10:00 06/22/19 14:50 Miralax (For Bowel Prep) - PO Not Given DAILY JOVANNY Trazodone HCl 200 mg 06/21/19 22:00 06/21/19 21:44 Desyrel - PO 200 mg HS JOVANNY Administration Venlafaxine HCl 150 mg 06/22/19 10:00 06/22/19 11:29 Effexor Xr - PO 150 mg DAILY JOVANNY Administration ASSESSMENT/PLAN: #Submandibular Abscess -s/p I&D drainage day# 1 -Cont. vanc and flagyl. allergic to clinda, pencillins -ID on board -ENT Dr Delgado consulted #Bipolar disorder -cont home med #anxiety/depression -cont home med #Hypothyroidism -cont home med #FEN -dc fluids -monitor -soft diet #dvt ppx -hep sq Visit type - Emergency Visit Emergency Visit: Yes ED Registration Date: 06/21/19 Care time: The patient presented to the Emergency Department on the above date and was hospitalized for further evaluation of their emergent condition. - New Patient This patient is new to me today: Yes Date on this admission: 06/22/19 - Critical Care Critical Care patient: No ATTENDING PHYSICIAN STATEMENT I saw and evaluated the patient. I reviewed the resident's note and discussed the case with the resident. I agree with the resident's findings and plan as documented. SUBJECTIVE: OBJECTIVE: ASSESSMENT AND PLAN:
[2019-06-22] MEDS: LACTULOSE 20 GM/30 ML UDC (FOR ORAL USE ONLY) PO PRN (17:07)
[2019-06-22] MEDS ORDERED: clonazePAM 0.5 MG TABLET PO SCH (17:36)
[2019-06-22] MEDS ORDERED: INSULIN (NOVOLOG) ASPART 100 UNITS/ML 10ML VIAL ONE (19:00)
[2019-06-22] MEDS ORDERED: traZODone HCL 50 MG TABLET (FP) ONE (20:35)
[2019-06-22] MEDS: DOCUSATE SODIUM 100 MG CAPSULE (FP) PO SCH (21:41)
[2019-06-22] MEDS: traZODone HCL 100 MG TABLET (FP) PO SCH (22:05)
[2019-06-22] MEDS: ATORVASTATIN CA 40 MG TABLET (FP) PO SCH (22:06)
[2019-06-23] MEDS: VANCOMYCIN HCL 1,250 MG in DEXTROSE 5%-WATER - 250 ML IVPB SCH (03:25)
[2019-06-23] MEDS: GABAPENTIN 300 MG CAPSULE PO SCH ×3 (06:17→22:17)
[2019-06-23] MEDS: LEVOTHYROXINE NA 150 MCG TABLET PO SCH (06:18)
[2019-06-23] MEDS: clonazePAM 0.5 MG TABLET PO SCH ×2 (06:42→17:48)
[2019-06-23] MEDS ORDERED: LEVOTHYROXINE NA 75 MCG TABLET (FP) PO SCH (07:00)
[2019-06-23 07:10] LABS: BASO % 0.9 % (0-2.0); HEMATOCRIT 28.4 % (32.4-45.2); HEMOGLOBIN 9.4 GM/dL (10.7-15.3); LYMPH % 33.9 % (8-40); MCH 29.5 pg (25.7-33.7); MCHC 33.2 g/dl (32.0-36.0); MEAN CELL VOLUME 88.9 fl (80-96); MEAN PLT VOLUME 8.6 fl (7.5-11.1); MONO % 9.5 % (3.8-10.2); NEUT % 52.7 % (42.8-82.8); PLATELET COUNT 141 K/MM3 (134-434); RDW 17.7 % (11.6-15.6); WHITE BLOOD COUNT 4.5 K/mm3 (4.0-10.0)
[2019-06-23 08:22] LABS: BILIRUBIN,TOTAL 0.5 mg/dL (0.2-1); BLOOD UREA NITROGEN 9.1 mg/dL (7-18); CALCIUM 8.7 mg/dL (8.5-10.1); CREATININE 0.5 mg/dL (0.55-1.3); POTASSIUM 3.9 mmol/L (3.5-5.1); TOT PROT 6.2 g/dl (6.4-8.2)
[2019-06-23] MEDS ORDERED: PT OWN MED DRAWER 7, Y5N ONE (09:03)
[2019-06-23] MEDS: oxyCODONE HCL 5 MG TABLET PO PRN ×2 (10:13→18:07)
[2019-06-23] MEDS: LACTULOSE 20 GM/30 ML UDC (FOR ORAL USE ONLY) PO PRN ×2 (10:14→13:53)
[2019-06-23] MEDS: ACETAMINOPHEN 325 MG TABLET (FP) PO PRN ×2 (10:14→18:08)
[2019-06-23] MEDS: POLYETHYLENE GLYCOL 3350 255 GM BTL PO SCH (10:14)
[2019-06-23] MEDS: HEPARIN NA (PORCINE) 5,000 UNITS/ML 1ML VIAL SQ SCH ×2 (10:15→22:19)
[2019-06-23] MEDS: ARIPiprazole 5 MG TABLET PO SCH (10:16)
[2019-06-23] MEDS: FUROSEMIDE 20 MG TABLET (FP) PO SCH (10:16)
[2019-06-23] MEDS: PANTOPRAZOLE 20 MG TABLET PO SCH (10:16)
[2019-06-23] MEDS: VENLAFAXINE HCL 75 MG E.R. CAPSULES PO SCH (10:16)
[2019-06-23] MEDS: BACLOFEN 10 MG TABLET (FP) PO SCH ×4 (10:17→22:17)
[2019-06-23] MEDS: LISINOPRIL 5 MG TABLET (FP) PO SCH (10:19)
--- NOTE | 2019-06-23 10:35 | PN ---
Progress Note, Physician History of Present Illness: stable no new issues - Current Medication List Current Medications: Active Medications Acetaminophen (Tylenol -) 325 mg PO BID PRN PRN Reason: PAIN LEVEL 7 - 10 Last Admin: 06/23/19 10:14 Dose: 325 mg Aripiprazole (Abilify) 5 mg PO DAILY [facility] Last Admin: 06/23/19 10:16 Dose: 5 mg Atorvastatin Calcium (Lipitor -) 40 mg PO HS [facility] Last Admin: 06/22/19 22:06 Dose: 40 mg Baclofen (Lioresal -) 20 mg PO QID [facility] Last Admin: 06/23/19 10:17 Dose: 20 mg Bupropion HCl (Wellbutrin Xl -) 150 mg PO DAILY [facility] Last Admin: 06/23/19 10:15 Dose: 150 mg Clonazepam (Klonopin -) 1 mg PO BID@0730,1700 [facility] Last Admin: 06/23/19 06:42 Dose: 1 mg Docusate Sodium (Colace -) 300 mg PO HS [facility] Last Admin: 06/22/19 21:41 Dose: 300 mg Ergocalciferol (Drisdol -) 50,000 unit PO Q7D [facility] Last Admin: 06/22/19 11:29 Dose: 50,000 unit Furosemide (Lasix -) 20 mg PO DAILY [facility] Last Admin: 06/23/19 10:16 Dose: 20 mg Gabapentin (Neurontin -) 300 mg PO TID [facility] Last Admin: 06/23/19 06:17 Dose: 300 mg Heparin Sodium (Porcine) (Heparin -) 5,000 unit SQ BID [facility] Last Admin: 06/23/19 10:15 Dose: 5,000 unit Metronidazole (Flagyl 500mg Premixed Ivpb -) 500 mg in 100 mls @ 100 mls/hr IVPB Q6H-IV JOVANNY Last Admin: 06/23/19 10:16 Dose: 100 mls/hr Vancomycin HCl 1,250 mg/ (Dextrose) 250 mls @ 250 mls/2 hr IVPB Q24H [facility]; Protocol Last Admin: 06/23/19 03:25 Dose: 250 mls/2 hr Lactulose (Cephulac (Oral Use)) 20 gm PO ACHS PRN PRN Reason: CONSTIPATION Last Admin: 06/23/19 10:14 Dose: 20 gm Levothyroxine Sodium (Synthroid -) 150 mcg PO DAILY@0700 [facility] Lisinopril (Prinivil) 5 mg PO DAILY [facility] Last Admin: 06/23/19 10:19 Dose: 5 mg Metoclopramide HCl (Reglan -) 10 mg PO TIDAC PRN PRN Reason: NAUSEA Oxycodone HCl (Roxicodone -) 10 mg PO BID PRN PRN Reason: PAIN LEVEL 7 - 10 Last Admin: 06/23/19 10:13 Dose: 10 mg Pantoprazole Sodium (Protonix -) 20 mg PO DAILY [facility] Last Admin: 06/23/19 10:16 Dose: 20 mg Polyethylene Glycol (Miralax (For Bowel Prep) -) 17 gm PO DAILY [facility] Last Admin: 06/23/19 10:14 Dose: 17 grams Trazodone HCl (Desyrel -) 200 mg PO HS [facility] Last Admin: 06/22/19 22:05 Dose: 200 mg Venlafaxine HCl (Effexor Xr -) 150 mg PO DAILY [facility] Last Admin: 06/23/19 10:16 Dose: 150 mg - Objective Vital Signs: Vital Signs Temperature 97.9 F 06/23/19 06:00 Pulse Rate 66 06/23/19 06:00 Respiratory Rate 18 06/23/19 06:00 Blood Pressure 136/73 06/23/19 06:00 O2 Sat by Pulse Oximetry (%) 94 L 06/22/19 21:00 Constitutional: Yes: No Distress, Calm Cardiovascular: Yes: S1, S2 Respiratory: Yes: Regular, CTA Bilaterally Gastrointestinal: Yes: Normal Bowel Sounds, Soft Musculoskeletal: Yes: WNL Extremities: Yes: WNL Wound/Incision: Yes: Dressing Dry and Intact Neurological: Yes: Alert, Oriented Psychiatric: Yes: Alert, Oriented Labs: CBC, BMP 06/23/19 06:00 06/23/19 06:00 INR, PTT INR 0.92 (0.83-1.09) 06/21/19 12:58 Assessment/Plan Problem List - Problems (1) Mass of right submandibular region Problems reviewed: Yes Code(s): R22.0 - LOCALIZED SWELLING, MASS AND LUMP, HEAD (2) Bipolar 1 disorder Problems reviewed: Yes Code(s): F31.9 - BIPOLAR DISORDER, UNSPECIFIED (3) HTN (hypertension) Problems reviewed: Yes Code(s): I10 - ESSENTIAL (PRIMARY) HYPERTENSION (4) Hypothyroidism Problems reviewed: Yes Code(s): E03.9 - HYPOTHYROIDISM, UNSPECIFIED plan continue current mgmt abx await for finalization of cx rest as per the team
--- NOTE | 2019-06-23 18:53 | PN ---
Progress Note, Physician Chief Complaint: jaw pain History of Present Illness: feeling better, no pain, afebrile - Current Medication List Current Medications: Active Medications Acetaminophen (Tylenol -) 325 mg PO BID PRN PRN Reason: PAIN LEVEL 7 - 10 Last Admin: 06/23/19 18:08 Dose: 325 mg Aripiprazole (Abilify) 5 mg PO DAILY [facility] Last Admin: 06/23/19 10:16 Dose: 5 mg Atorvastatin Calcium (Lipitor -) 40 mg PO HS [facility] Last Admin: 06/22/19 22:06 Dose: 40 mg Baclofen (Lioresal -) 20 mg PO QID [facility] Last Admin: 06/23/19 17:48 Dose: 20 mg Benzocaine/Menthol (Cepacol Lozenge -) 1 each MM PRN PRN PRN Reason: SORE THROAT Bupropion HCl (Wellbutrin Xl -) 150 mg PO DAILY [facility] Last Admin: 06/23/19 10:15 Dose: 150 mg Clonazepam (Klonopin -) 1 mg PO BID@0730,1700 [facility] Last Admin: 06/23/19 17:48 Dose: 1 mg Docusate Sodium (Colace -) 300 mg PO HS [facility] Last Admin: 06/22/19 21:41 Dose: 300 mg Ergocalciferol (Drisdol -) 50,000 unit PO Q7D [facility] Last Admin: 06/22/19 11:29 Dose: 50,000 unit Furosemide (Lasix -) 20 mg PO DAILY [facility] Last Admin: 06/23/19 10:16 Dose: 20 mg Gabapentin (Neurontin -) 300 mg PO TID [facility] Last Admin: 06/23/19 13:51 Dose: 300 mg Heparin Sodium (Porcine) (Heparin -) 5,000 unit SQ BID [facility] Last Admin: 06/23/19 10:15 Dose: 5,000 unit Metronidazole (Flagyl 500mg Premixed Ivpb -) 500 mg in 100 mls @ 100 mls/hr IVPB Q6H-IV JOVANNY Last Admin: 06/23/19 16:03 Dose: 100 mls/hr Vancomycin HCl 1,250 mg/ (Dextrose) 250 mls @ 250 mls/2 hr IVPB Q24H [facility]; Protocol Last Admin: 06/23/19 03:25 Dose: 250 mls/2 hr Lactulose (Cephulac (Oral Use)) 20 gm PO ACHS PRN PRN Reason: CONSTIPATION Last Admin: 06/23/19 13:53 Dose: 20 gm Levothyroxine Sodium (Synthroid -) 150 mcg PO DAILY@0700 [facility] Lisinopril (Prinivil) 5 mg PO DAILY [facility] Last Admin: 06/23/19 10:19 Dose: 5 mg Metoclopramide HCl (Reglan -) 10 mg PO TIDAC PRN PRN Reason: NAUSEA Oxycodone HCl (Roxicodone -) 10 mg PO BID PRN PRN Reason: PAIN LEVEL 7 - 10 Last Admin: 06/23/19 18:07 Dose: 10 mg Pantoprazole Sodium (Protonix -) 20 mg PO DAILY [facility] Last Admin: 06/23/19 10:16 Dose: 20 mg Polyethylene Glycol (Miralax (For Bowel Prep) -) 17 gm PO DAILY [facility] Last Admin: 06/23/19 10:14 Dose: 17 grams Trazodone HCl (Desyrel -) 200 mg PO HS [facility] Last Admin: 06/22/19 22:05 Dose: 200 mg Venlafaxine HCl (Effexor Xr -) 150 mg PO DAILY [facility] Last Admin: 06/23/19 10:16 Dose: 150 mg - Objective Vital Signs: Vital Signs Temperature 97.8 F 06/23/19 18:31 Pulse Rate 58 L 06/23/19 18:31 Respiratory Rate 18 06/23/19 18:31 Blood Pressure 116/78 06/23/19 18:31 O2 Sat by Pulse Oximetry (%) 94 L 06/23/19 09:00 Constitutional: Yes: Well Nourished, No Distress, Calm HENT: Yes: WNL, Atraumatic, Normocephalic, Other (right SM abscess, no drainage , hard, nontender,) Cardiovascular: Yes: WNL, Regular Rate and Rhythm Respiratory: Yes: WNL, Regular, CTA Bilaterally Gastrointestinal: Yes: WNL, Normal Bowel Sounds, Soft, Abdomen, Obese Edema: No Labs: CBC, BMP 06/23/19 06:00 06/23/19 06:00 INR, PTT INR 0.92 (0.83-1.09) 06/21/19 12:58 Problem List - Problems (1) Abscess Code(s): L02.91 - CUTANEOUS ABSCESS, UNSPECIFIED (2) Mass of right submandibular region Code(s): R22.0 - LOCALIZED SWELLING, MASS AND LUMP, HEAD (3) Anxiety Code(s): F41.9 - ANXIETY DISORDER, UNSPECIFIED (4) Back pain Code(s): M54.9 - DORSALGIA, UNSPECIFIED (5) Bipolar 1 disorder Code(s): F31.9 - BIPOLAR DISORDER, UNSPECIFIED (6) Depression Code(s): F32.9 - MAJOR DEPRESSIVE DISORDER, SINGLE EPISODE, UNSPECIFIED (7) HTN (hypertension) Code(s): I10 - ESSENTIAL (PRIMARY) HYPERTENSION (8) Hypothyroidism Code(s): E03.9 - HYPOTHYROIDISM, UNSPECIFIED Assessment/Plan Assessment: Submandibular Abscess Bipolar D/O Anxiety/Depression Hypothyroidism Plan: -s/p I and D -await cx results -cw current iv abx, ID following -c/w current mnt
[2019-06-23] MEDS ORDERED: traZODone HCL 50 MG TABLET (FP) ONE (22:02)
[2019-06-23] MEDS: DOCUSATE SODIUM 100 MG CAPSULE (FP) PO SCH (22:16)
[2019-06-23] MEDS: traZODone HCL 100 MG TABLET (FP) PO SCH (22:17)
[2019-06-23] MEDS: ATORVASTATIN CA 40 MG TABLET (FP) PO SCH (22:17)
[2019-06-23] MEDS: BENZOCAINE/MENTH/CETYLPYRD CL 1 EACH LOZENGE MM PRN (23:42)
[2019-06-24] MEDS ORDERED: PT OWN MED DRAWER 7, Y5N ONE (01:09)
[2019-06-24] MEDS: VANCOMYCIN HCL 1,250 MG in DEXTROSE 5%-WATER - 250 ML IVPB SCH (01:21)
[2019-06-24] MEDS: ACETAMINOPHEN 325 MG TABLET (FP) PO PRN ×2 (05:59→17:04)
[2019-06-24] MEDS: oxyCODONE HCL 5 MG TABLET PO PRN ×2 (05:59→17:03)
[2019-06-24] MEDS: GABAPENTIN 300 MG CAPSULE PO SCH ×3 (05:59→22:18)
[2019-06-24] MEDS: BENZOCAINE/MENTH/CETYLPYRD CL 1 EACH LOZENGE MM PRN ×2 (06:01→09:08)
[2019-06-24] MEDS: clonazePAM 0.5 MG TABLET PO SCH ×2 (06:37→17:00)
[2019-06-24] MEDS ORDERED: LEVOTHYROXINE NA 150 MCG TABLET PO SCH (07:00)
[2019-06-24 07:01] LABS: BASO % 0.7 % (0-2.0); EOS % 2.8 % (0-4.5); HEMATOCRIT 28.9 % (32.4-45.2); HEMOGLOBIN 9.5 GM/dL (10.7-15.3); LYMPH % 28.8 % (8-40); MCH 29.3 pg (25.7-33.7); MEAN CELL VOLUME 88.8 fl (80-96); MEAN PLT VOLUME 8.5 fl (7.5-11.1); MONO % 9.6 % (3.8-10.2); NEUT % 58.1 % (42.8-82.8); PLATELET COUNT 146 K/MM3 (134-434); RBC 3.25 M/mm3 (3.60-5.2); RDW 17.8 % (11.6-15.6); WHITE BLOOD COUNT 4.4 K/mm3 (4.0-10.0)
[2019-06-24 07:21] LABS: BLOOD UREA NITROGEN 11.8 mg/dL (7-18); CREATININE 0.5 mg/dL (0.55-1.3)
[2019-06-24 07:22] LABS: CALCIUM 8.5 mg/dL (8.5-10.1); POTASSIUM 3.9 mmol/L (3.5-5.1)
[2019-06-24] MEDS: LISINOPRIL 5 MG TABLET (FP) PO SCH (09:09)
[2019-06-24] MEDS: FUROSEMIDE 20 MG TABLET (FP) PO SCH (09:09)
[2019-06-24] MEDS: VENLAFAXINE HCL 75 MG E.R. CAPSULES PO SCH (09:09)
[2019-06-24] MEDS: PANTOPRAZOLE 20 MG TABLET PO SCH (09:09)
[2019-06-24] MEDS: ARIPiprazole 5 MG TABLET PO SCH (09:11)
[2019-06-24] MEDS: HEPARIN NA (PORCINE) 5,000 UNITS/ML 1ML VIAL SQ SCH ×2 (09:11→22:17)
[2019-06-24] MEDS: POLYETHYLENE GLYCOL 3350 255 GM BTL PO SCH (09:12)
[2019-06-24] MEDS: BACLOFEN 10 MG TABLET (FP) PO SCH ×4 (09:14→22:18)
--- NOTE | 2019-06-24 11:24 | PN ---
Progress Note, Physician History of Present Illness: stable minimal drainage from the wound - Current Medication List Current Medications: Active Medications Acetaminophen (Tylenol -) 325 mg PO BID PRN PRN Reason: PAIN LEVEL 7 - 10 Last Admin: 06/24/19 05:59 Dose: 325 mg Aripiprazole (Abilify) 5 mg PO DAILY [facility] Last Admin: 06/24/19 09:11 Dose: 5 mg Atorvastatin Calcium (Lipitor -) 40 mg PO HS [facility] Last Admin: 06/23/19 22:17 Dose: 40 mg Baclofen (Lioresal -) 20 mg PO QID [facility] Last Admin: 06/24/19 09:14 Dose: 20 mg Benzocaine/Menthol (Cepacol Lozenge -) 1 each MM PRN PRN PRN Reason: SORE THROAT Last Admin: 06/24/19 09:08 Dose: 1 each Bupropion HCl (Wellbutrin Xl -) 150 mg PO DAILY [facility] Last Admin: 06/24/19 09:09 Dose: 150 mg Clonazepam (Klonopin -) 1 mg PO BID@0730,1700 [facility] Last Admin: 06/24/19 06:37 Dose: 1 mg Docusate Sodium (Colace -) 300 mg PO HS [facility] Last Admin: 06/23/19 22:16 Dose: 300 mg Ergocalciferol (Drisdol -) 50,000 unit PO Q7D [facility] Last Admin: 06/22/19 11:29 Dose: 50,000 unit Furosemide (Lasix -) 20 mg PO DAILY [facility] Last Admin: 06/24/19 09:09 Dose: 20 mg Gabapentin (Neurontin -) 300 mg PO TID [facility] Last Admin: 06/24/19 05:59 Dose: 300 mg Heparin Sodium (Porcine) (Heparin -) 5,000 unit SQ BID [facility] Last Admin: 06/24/19 09:11 Dose: 5,000 unit Metronidazole (Flagyl 500mg Premixed Ivpb -) 500 mg in 100 mls @ 100 mls/hr IVPB Q6H-IV [facility] Last Admin: 06/24/19 09:08 Dose: 100 mls/hr Vancomycin HCl 1,250 mg/ (Dextrose) 250 mls @ 250 mls/2 hr IVPB Q24H [facility]; Protocol Last Admin: 06/24/19 01:21 Dose: 250 mls/2 hr Lactulose (Cephulac (Oral Use)) 20 gm PO ACHS PRN PRN Reason: CONSTIPATION Last Admin: 06/23/19 13:53 Dose: 20 gm Levothyroxine Sodium (Synthroid -) 150 mcg PO DAILY@0700 [facility] Last Admin: 06/24/19 06:01 Dose: 150 mcg Lisinopril (Prinivil) 5 mg PO DAILY [facility] Last Admin: 06/24/19 09:09 Dose: 5 mg Metoclopramide HCl (Reglan -) 10 mg PO TIDAC PRN PRN Reason: NAUSEA Oxycodone HCl (Roxicodone -) 10 mg PO BID PRN PRN Reason: PAIN LEVEL 7 - 10 Last Admin: 06/24/19 05:59 Dose: 10 mg Pantoprazole Sodium (Protonix -) 20 mg PO DAILY [facility] Last Admin: 06/24/19 09:09 Dose: 20 mg Polyethylene Glycol (Miralax (For Bowel Prep) -) 17 gm PO DAILY [facility] Last Admin: 06/24/19 09:12 Dose: 17 grams Trazodone HCl (Desyrel -) 200 mg PO HS [facility] Last Admin: 06/23/19 22:17 Dose: 200 mg Venlafaxine HCl (Effexor Xr -) 150 mg PO DAILY [facility] Last Admin: 06/24/19 09:09 Dose: 150 mg - Objective Vital Signs: Vital Signs Temperature 97.7 F 06/24/19 09:25 Pulse Rate 57 L 06/24/19 09:25 Respiratory Rate 18 06/24/19 09:25 Blood Pressure 122/77 06/24/19 09:25 O2 Sat by Pulse Oximetry (%) 95 06/24/19 09:00 Constitutional: Yes: No Distress, Calm Cardiovascular: Yes: S1, S2 Respiratory: Yes: Regular, CTA Bilaterally Gastrointestinal: Yes: Normal Bowel Sounds, Soft Musculoskeletal: Yes: WNL Extremities: Yes: WNL Wound/Incision: Yes: Clean/Dry Neurological: Yes: Alert, Oriented Psychiatric: Yes: Alert, Oriented Labs: CBC, BMP 06/24/19 06:20 06/24/19 06:20 INR, PTT INR 0.92 (0.83-1.09) 06/21/19 12:58 Assessment/Plan Problem List - Problems (1) Mass of right submandibular region Problems reviewed: Yes Code(s): R22.0 - LOCALIZED SWELLING, MASS AND LUMP, HEAD (2) Bipolar 1 disorder Problems reviewed: Yes Code(s): F31.9 - BIPOLAR DISORDER, UNSPECIFIED (3) HTN (hypertension) Problems reviewed: Yes Code(s): I10 - ESSENTIAL (PRIMARY) HYPERTENSION (4) Hypothyroidism Problems reviewed: Yes Code(s): E03.9 - HYPOTHYROIDISM, UNSPECIFIED plan will give doxy 100 mg po bid rest as per he team
[2019-06-24] MEDS: LACTULOSE 20 GM/30 ML UDC (FOR ORAL USE ONLY) PO PRN ×2 (13:14→17:08)
--- NOTE | 2019-06-24 15:34 | PN ---
Progress Note, Physician Chief Complaint: jaw pain History of Present Illness: feeling better, no pain, afebrile - Current Medication List Current Medications: Active Medications Acetaminophen (Tylenol -) 325 mg PO BID PRN PRN Reason: PAIN LEVEL 7 - 10 Last Admin: 06/24/19 05:59 Dose: 325 mg Aripiprazole (Abilify) 5 mg PO DAILY [facility] Last Admin: 06/24/19 09:11 Dose: 5 mg Atorvastatin Calcium (Lipitor -) 40 mg PO HS [facility] Last Admin: 06/23/19 22:17 Dose: 40 mg Baclofen (Lioresal -) 20 mg PO QID [facility] Last Admin: 06/24/19 13:15 Dose: 20 mg Benzocaine/Menthol (Cepacol Lozenge -) 1 each MM PRN PRN PRN Reason: SORE THROAT Last Admin: 06/24/19 09:08 Dose: 1 each Bupropion HCl (Wellbutrin Xl -) 150 mg PO DAILY [facility] Last Admin: 06/24/19 09:09 Dose: 150 mg Clonazepam (Klonopin -) 1 mg PO BID@0730,1700 [facility] Last Admin: 06/24/19 06:37 Dose: 1 mg Docusate Sodium (Colace -) 300 mg PO HS [facility] Last Admin: 06/23/19 22:16 Dose: 300 mg Doxycycline Hyclate (Vibramycin -) 100 mg PO BID@1000,1800 [facility] Ergocalciferol (Drisdol -) 50,000 unit PO Q7D [facility] Last Admin: 06/22/19 11:29 Dose: 50,000 unit Furosemide (Lasix -) 20 mg PO DAILY [facility] Last Admin: 06/24/19 09:09 Dose: 20 mg Gabapentin (Neurontin -) 300 mg PO TID [facility] Last Admin: 06/24/19 13:14 Dose: 300 mg Heparin Sodium (Porcine) (Heparin -) 5,000 unit SQ BID [facility] Last Admin: 06/24/19 09:11 Dose: 5,000 unit Lactulose (Cephulac (Oral Use)) 20 gm PO ACHS PRN PRN Reason: CONSTIPATION Last Admin: 06/24/19 13:14 Dose: 20 gm Levothyroxine Sodium (Synthroid -) 150 mcg PO DAILY@0700 [facility] Last Admin: 06/24/19 06:01 Dose: 150 mcg Lisinopril (Prinivil) 5 mg PO DAILY [facility] Last Admin: 06/24/19 09:09 Dose: 5 mg Metoclopramide HCl (Reglan -) 10 mg PO TIDAC PRN PRN Reason: NAUSEA Oxycodone HCl (Roxicodone -) 10 mg PO BID PRN PRN Reason: PAIN LEVEL 7 - 10 Last Admin: 06/24/19 05:59 Dose: 10 mg Pantoprazole Sodium (Protonix -) 20 mg PO DAILY [facility] Last Admin: 06/24/19 09:09 Dose: 20 mg Polyethylene Glycol (Miralax (For Bowel Prep) -) 17 gm PO DAILY [facility] Last Admin: 06/24/19 09:12 Dose: 17 grams Trazodone HCl (Desyrel -) 200 mg PO HS [facility] Last Admin: 06/23/19 22:17 Dose: 200 mg Venlafaxine HCl (Effexor Xr -) 150 mg PO DAILY [facility] Last Admin: 06/24/19 09:09 Dose: 150 mg - Objective Vital Signs: Vital Signs Temperature 98.6 F 06/24/19 13:41 Pulse Rate 66 06/24/19 13:41 Respiratory Rate 20 06/24/19 13:41 Blood Pressure 119/67 06/24/19 13:41 O2 Sat by Pulse Oximetry (%) 95 06/24/19 09:00 Constitutional: Yes: Well Nourished, No Distress, Calm HENT: Yes: WNL, Atraumatic, Normocephalic, Other (right SM abscess healed small firm lesion, no drainage) Cardiovascular: Yes: WNL, Regular Rate and Rhythm Respiratory: Yes: WNL, Regular, CTA Bilaterally Gastrointestinal: Yes: WNL, Normal Bowel Sounds, Soft Edema: No Neurological: Yes: WNL, Alert, Oriented ...Motor Strength: WNL Labs: CBC, BMP 06/24/19 06:20 06/24/19 06:20 INR, PTT INR 0.92 (0.83-1.09) 06/21/19 12:58 Problem List - Problems (1) Abscess Code(s): L02.91 - CUTANEOUS ABSCESS, UNSPECIFIED (2) Mass of right submandibular region Code(s): R22.0 - LOCALIZED SWELLING, MASS AND LUMP, HEAD (3) Anxiety Code(s): F41.9 - ANXIETY DISORDER, UNSPECIFIED (4) Back pain Code(s): M54.9 - DORSALGIA, UNSPECIFIED (5) Bipolar 1 disorder Code(s): F31.9 - BIPOLAR DISORDER, UNSPECIFIED (6) Depression Code(s): F32.9 - MAJOR DEPRESSIVE DISORDER, SINGLE EPISODE, UNSPECIFIED (7) HTN (hypertension) Code(s): I10 - ESSENTIAL (PRIMARY) HYPERTENSION (8) Hypothyroidism Code(s): E03.9 - HYPOTHYROIDISM, UNSPECIFIED Assessment/Plan Assessment: Submandibular Abscess Bipolar D/O Anxiety/Depression Hypothyroidism Plan: -s/p I and D -cx negative -transitioned to PO doxy -c/w current mngmt -DC in AM, lives in an assisted living
[2019-06-24] MEDS: DOXYCYCLINE HYCLATE 100 MG CAPSULE PO SCH (17:01)
[2019-06-24] MEDS ORDERED: traZODone HCL 50 MG TABLET (FP) ONE (22:08)
[2019-06-24] MEDS: DOCUSATE SODIUM 100 MG CAPSULE (FP) PO SCH (22:17)
[2019-06-24] MEDS: ATORVASTATIN CA 40 MG TABLET (FP) PO SCH (22:18)
[2019-06-24] MEDS: traZODone HCL 100 MG TABLET (FP) PO SCH (22:18)
[2019-06-25] MEDS: GABAPENTIN 300 MG CAPSULE PO SCH ×2 (06:35→13:25)
[2019-06-25] MEDS: ACETAMINOPHEN 325 MG TABLET (FP) PO PRN (06:35)
[2019-06-25] MEDS: oxyCODONE HCL 5 MG TABLET PO PRN (06:35)
[2019-06-25] MEDS: clonazePAM 0.5 MG TABLET PO SCH (06:35)
[2019-06-25] MEDS: LACTULOSE 20 GM/30 ML UDC (FOR ORAL USE ONLY) PO PRN (06:47)
[2019-06-25] MEDS ORDERED: LEVOTHYROXINE NA 150 MCG TABLET PO SCH (07:00)
[2019-06-25] MEDS ORDERED: LEVOTHYROXINE NA 75 MCG TABLET (FP) PO SCH (07:00)
[2019-06-25 07:46] LABS: BASO % 1.3 % (0-2.0); EOS % 2.9 % (0-4.5); HEMATOCRIT 31.1 % (32.4-45.2); LYMPH % 30.7 % (8-40); MCHC 32.3 g/dl (32.0-36.0); MEAN CELL VOLUME 89.8 fl (80-96); MEAN PLT VOLUME 8.5 fl (7.5-11.1); NEUT % 55.1 % (42.8-82.8); PLATELET COUNT 164 K/MM3 (134-434); RBC 3.46 M/mm3 (3.60-5.2); RDW 17.4 % (11.6-15.6); WHITE BLOOD COUNT 4.3 K/mm3 (4.0-10.0)
--- NOTE | 2019-06-25 07:55 | PN ---
Teaching Attending Note Name of Resident: Zheng Mota ATTENDING PHYSICIAN STATEMENT I saw and evaluated the patient. I reviewed the resident's note and discussed the case with the resident. I agree with the resident's findings and plan as documented. SUBJECTIVE: OBJECTIVE: Vital Signs Temperature 97.5 F L 06/25/19 06:05 Pulse Rate 56 L 06/25/19 06:05 Respiratory Rate 20 06/25/19 06:05 Blood Pressure 133/74 06/25/19 06:05 O2 Sat by Pulse Oximetry (%) 96 06/24/19 21:00 General: Elderly woman, in discomfort due to pain not in distress HEENT; right submandibular abscess status post I&D erythema reduced, swelling is regressing, , mucous membranes moist, no anemia, no jaundice, PERRLA, no nystagmus Neck: No JVD, supple, no bruit, thyroid palpably normal, normal carotid pulsations. Chest: Nontender, clear to auscultation bilaterally CVS: S1-S2 regular no murmur/gallop/rub Abdomen: Nondistended, soft, bowel sounds present. Extremities: No edema., No calf tenderness, pulses present [employer]: AO X3 , no gross motor sensory deficit CBC, BMP 06/25/19 07:27 06/24/19 06:20 CT scan soft tissue neck: 3.2X2.4 centimeters globular mass suggestive of abscess ASSESSMENT AND PLAN: 63-year-old female resident of [facility] , history of bipolar disorder, hypertension hypothyroidism obesity BMI 35 , chronic neck pain status post cervical spine surgery, poor oral hygiene presented right submandibular swelling with redness and pain acute onset CT scan suggestive of abscess, I&D performed in the ED is being admitted for further management.. Impression: Right submandibular mass/abscess Plan: Patient has significant improvement cleared by ID on p.o. doxycycline for 7 days need to follow-up with ENT Problem List - Problems (1) Mass of right submandibular region Assessment/Plan: Afebrile, T WBC normal,post I&D erythema reduced, swelling is regressing, cultures negative cleared by ID to be DC on p.o. doxycycline for 7 days follow- up with the ENT/dental. Code(s): R22.0 - LOCALIZED SWELLING, MASS AND LUMP, HEAD (2) Bipolar 1 disorder Assessment/Plan: Resume home medications Code(s): F31.9 - BIPOLAR DISORDER, UNSPECIFIED (3) HTN (hypertension) Assessment/Plan: Resume home medication Code(s): I10 - ESSENTIAL (PRIMARY) HYPERTENSION (4) Hypothyroidism Assessment/Plan: Resume home medication Code(s): E03.9 - HYPOTHYROIDISM, UNSPECIFIED
[2019-06-25] MEDS: PANTOPRAZOLE 20 MG TABLET PO SCH (09:51)
[2019-06-25] MEDS: LISINOPRIL 5 MG TABLET (FP) PO SCH (09:51)
[2019-06-25] MEDS: DOXYCYCLINE HYCLATE 100 MG CAPSULE PO SCH (09:51)
[2019-06-25] MEDS: FUROSEMIDE 20 MG TABLET (FP) PO SCH (09:51)
[2019-06-25] MEDS: BACLOFEN 10 MG TABLET (FP) PO SCH ×2 (09:52→13:25)
[2019-06-25] MEDS: HEPARIN NA (PORCINE) 5,000 UNITS/ML 1ML VIAL SQ SCH (09:52)
[2019-06-25] MEDS: VENLAFAXINE HCL 75 MG E.R. CAPSULES PO SCH (09:52)
[2019-06-25] MEDS: ARIPiprazole 5 MG TABLET PO SCH (09:53)
[2019-06-25] MEDS: POLYETHYLENE GLYCOL 3350 255 GM BTL PO SCH (09:56)
--- NOTE | 2019-06-25 10:31 | PN ---
Progress Note, Physician History of Present Illness: stable wound still with some oozing wound cx still negative still not finalized - Current Medication List Current Medications: Active Medications Acetaminophen (Tylenol -) 325 mg PO BID PRN PRN Reason: PAIN LEVEL 7 - 10 Last Admin: 06/25/19 06:35 Dose: 325 mg Aripiprazole (Abilify) 5 mg PO DAILY [facility] Last Admin: 06/25/19 09:53 Dose: 5 mg Atorvastatin Calcium (Lipitor -) 40 mg PO HS [facility] Last Admin: 06/24/19 22:18 Dose: 40 mg Baclofen (Lioresal -) 20 mg PO QID [facility] Last Admin: 06/25/19 09:52 Dose: 20 mg Benzocaine/Menthol (Cepacol Lozenge -) 1 each MM PRN PRN PRN Reason: SORE THROAT Last Admin: 06/24/19 09:08 Dose: 1 each Bupropion HCl (Wellbutrin Xl -) 150 mg PO DAILY [facility] Last Admin: 06/25/19 09:51 Dose: 150 mg Clonazepam (Klonopin -) 1 mg PO BID@0730,1700 [facility] Last Admin: 06/25/19 06:35 Dose: 1 mg Docusate Sodium (Colace -) 300 mg PO HS [facility] Last Admin: 06/24/19 22:17 Dose: 300 mg Doxycycline Hyclate (Vibramycin -) 100 mg PO BID@1000,1800 [facility] Last Admin: 06/25/19 09:51 Dose: 100 mg Ergocalciferol (Drisdol -) 50,000 unit PO Q7D [facility] Last Admin: 06/22/19 11:29 Dose: 50,000 unit Furosemide (Lasix -) 20 mg PO DAILY [facility] Last Admin: 06/25/19 09:51 Dose: 20 mg Gabapentin (Neurontin -) 300 mg PO TID [facility] Last Admin: 06/25/19 06:35 Dose: 300 mg Heparin Sodium (Porcine) (Heparin -) 5,000 unit SQ BID [facility] Last Admin: 06/25/19 09:52 Dose: Not Given Lactulose (Cephulac (Oral Use)) 20 gm PO ACHS PRN PRN Reason: CONSTIPATION Last Admin: 06/25/19 06:47 Dose: 20 gm Levothyroxine Sodium (Synthroid -) 150 mcg PO DAILY@0700 [facility] Lisinopril (Prinivil) 5 mg PO DAILY [facility] Last Admin: 06/25/19 09:51 Dose: 5 mg Metoclopramide HCl (Reglan -) 10 mg PO TIDAC PRN PRN Reason: NAUSEA Oxycodone HCl (Roxicodone -) 10 mg PO BID PRN PRN Reason: PAIN LEVEL 7 - 10 Last Admin: 06/25/19 06:35 Dose: 10 mg Pantoprazole Sodium (Protonix -) 20 mg PO DAILY [facility] Last Admin: 06/25/19 09:51 Dose: 20 mg Polyethylene Glycol (Miralax (For Bowel Prep) -) 17 gm PO DAILY [facility] Last Admin: 06/25/19 09:56 Dose: 17 grams Trazodone HCl (Desyrel -) 200 mg PO HS [facility] Last Admin: 06/24/19 22:18 Dose: 200 mg Venlafaxine HCl (Effexor Xr -) 150 mg PO DAILY [facility] Last Admin: 06/25/19 09:52 Dose: 150 mg - Objective Vital Signs: Vital Signs Temperature 97.5 F L 06/25/19 06:05 Pulse Rate 56 L 06/25/19 06:05 Respiratory Rate 06/25/19 06:05 Blood Pressure 133/74 06/25/19 06:05 O2 Sat by Pulse Oximetry (%) 96 06/24/19 21:00 Constitutional: Yes: No Distress, Calm Cardiovascular: Yes: S1, S2 Respiratory: Yes: Regular, CTA Bilaterally Gastrointestinal: Yes: Normal Bowel Sounds, Soft Musculoskeletal: Yes: WNL Extremities: Yes: WNL Wound/Incision: Yes: Draining, Other Neurological: Yes: Alert, Oriented Psychiatric: Yes: Alert, Oriented Labs: CBC, BMP 06/25/19 07:27 06/24/19 06:20 INR, PTT INR 0.92 (0.83-1.09) 06/21/19 12:58 Assessment/Plan Problem List - Problems (1) Mass of right submandibular region Problems reviewed: Yes Code(s): R22.0 - LOCALIZED SWELLING, MASS AND LUMP, HEAD (2) Bipolar 1 disorder Problems reviewed: Yes Code(s): F31.9 - BIPOLAR DISORDER, UNSPECIFIED (3) HTN (hypertension) Problems reviewed: Yes Code(s): I10 - ESSENTIAL (PRIMARY) HYPERTENSION (4) Hypothyroidism Problems reviewed: Yes Code(s): E03.9 - HYPOTHYROIDISM, UNSPECIFIED plan continue doxy for another 5 days follow finalization of the cx report
[2019-06-25 12:06] VITALS: BP 119/76; PULSE 64; TEMP 97.9
--- NOTE | 2019-06-25 14:57 | DS ---
Physical Exam: SUBJECTIVE: Patient seen and examined. Offers no new complaints. denies symptoms. OBJECTIVE: Vital Signs Period Temp Pulse Resp BP Sys/Merrill Pulse Ox Last 24 Hr 97.5 F-97.9 F 56-64 18-20 119-133/74-84 96-96 PHYSICAL EXAM GENERAL: in NAD HEAD: Normal with no signs of trauma. EYES: Pupils equal, round and reactive to light EARS, NOSE, THROAT: NECK: dressing over I &D site. less erythema. swelling LUNGS: lungs cta b/l HEART: RRR ABDOMEN: obese, Soft, nontender, not distended, normoactive bowel sounds LOWER EXTREMITIES: 2+ pulses, No peripheral edema. LABS Laboratory Results - last 24 hr 06/25/19 07:27 WBC 4.3 RBC 3.46 L Hgb 10.0 L Hct 31.1 L MCV 89.8 MCH 29.0 MCHC 32.3 RDW 17.4 H Plt Count 164 MPV 8.5 Absolute Neuts (auto) 2.3 Neutrophils % 55.1 Lymphocytes % 30.7 Monocytes % 10.0 Eosinophils % 2.9 Basophils % 1.3 Nucleated RBC % 0 HOSPITAL COURSE: Date of Admission:06/21/19 CT scan soft tissue neck: 3.2X2.4 centimeters globular mass suggestive of abscess ASSESSMENT AND PLAN: 63-year-old female resident of [facility] , history of bipolar disorder, hypertension hypothyroidism obesity BMI 35 , chronic neck pain status post cervical spine surgery, poor oral hygiene presented right submandibular swelling with redness and pain acute onset CT scan suggestive of abscess, I&D performed in the ED. Impression: Right submandibular mass/abscess Plan: Patient has significant improvement cleared by ID on p.o. doxycycline for 7 days need to follow-up with ENT Date of Discharge: 06/25/19 Minutes to complete discharge: 35 Discharge Summary Problems reviewed: Yes Reason For Visit: CELLULITIS AND ABSCESS OF FACE Condition: Improved - Instructions Diet, Activity, Other Instructions: You were admitted because of an abscess that was drained. You will be discharged on antibiotics for 7 more days. Please follow up with your primary care discharge within 1 week. You will also need to follow an ENT physician within 1 week. Referrals: Babar Garcia MD [Primary Care Provider] - 1 Week Jasmeet Delgado MD [Staff Physician] - 1 Week Disposition: [facility] - Home Medications Comprehensive Discharge Medication List: Ambulatory Orders Aripiprazole [Abilify] 5 mg PO DAILY 11/04/17 Atorvastatin Ca [Lipitor] 40 mg PO HS 11/04/17 Baclofen 20 mg PO QID 11/04/17 Bupropion HCl [Bupropion HCl Sr] 150 mg PO DAILY 11/04/17 Docusate Sodium [Colace] 300 mg PO HS 11/04/17 Levothyroxine [Synthroid -] 150 mcg PO DAILY 11/04/17 Omeprazole 20 mg PO DAILY 11/04/17 Venlafaxine HCl ER [Effexor Xr -] 150 mg PO DAILY 11/04/17 Cholecalciferol (Vitamin D3) [Vitamin D3] 1,000 unit PO DAILY 05/09/19 Clonazepam [Klonopin] 1 mg PO BID 05/09/19 Ergocalciferol (Vitamin D2) [Vitamin D2] 50,000 unit PO Q7D 05/09/19 Furosemide [Lasix -] 20 mg PO DAILY 05/09/19 Gabapentin [Neurontin -] 300 mg PO Q8H 05/09/19 Lidocaine [Aspercreme Lidocaine] 1 each TP DAILY #30 adh..patch 05/09/19 Lisinopril [Prinivil] 5 mg PO DAILY 05/09/19 Metoclopramide HCl [Reglan -] 10 mg PO AC PRN 05/09/19 Polyethylene Glycol 3350 [Miralax 255 gm Btl -] 17 gm PO DAILY 05/09/19 traZODone HCL [Trazodone HCl] 200 mg PO HS 05/09/19 Oxycodone HCl/Acetaminophen [Endocet 10-325 mg Tablet] 1 each PO BID PRN #60 tablet MDD 2 06/13/19 Lactulose 10 gm PO TID 06/22/19 Doxycycline Hyclate [Vibramycin -] 100 mg PO BID #14 cap 06/25/19 This patient is new to me today: Yes Date on this admission: 06/25/19 Emergency Visit: Yes ED Registration Date: 06/21/19 Care time: The patient presented to the Emergency Department on the above date and was hospitalized for further evaluation of their emergent condition. Critical Care patient: No - Discharge Referral Referred to [facility] Med P.C.: No ATTENDING PHYSICIAN STATEMENT I saw and evaluated the patient. I reviewed the resident's note and discussed the case with the resident. I agree with the resident's findings and plan as documented. SUBJECTIVE: OBJECTIVE: ASSESSMENT AND PLAN:
[2019-06-26] MEDS ORDERED: LEVOTHYROXINE NA 150 MCG TABLET PO SCH (07:00)
== END 2019-06-25 14:20 | DRG 98 ==
LOC: JER 11:35 → JERBED 16:55 → J7W 18:34
PROVIDERS: ADMIT Internal Medicine; ATTEND Internal Medicine
PROC: 0J910ZZ Drainage of Face Subcutaneous Tissue and Fascia, Open Approach (ICD-10-PCS; principal; 2019-06-21)
DX: K12.2 Cellulitis and abscess of mouth (principal); E03.9 Hypothyroidism, unspecified; I10 Essential (primary) hypertension; F31.9 Bipolar disorder, unspecified; F41.8 Other specified anxiety disorders; M54.9 Dorsalgia, unspecified; R22.0 Localized swelling, mass and lump, head; E66.9 Obesity, unspecified; Z68.35 Body mass index [BMI] 35.0-35.9, adult
CPT/HCPCS: 36415; 70491-TC; 80048; 80053; 85025; 85610; 85651; 85730; 86140; 87040; 87070; 87077; 87205; 93005; 93010; 97116-GP; 97161-GP; 99283-25; J0131; J0475; J1644; J7030; Q9967

== ENCOUNTER 2021-12-20 00:35 | Emergency (ER) | payer OTHER ==
[2021-12-20 00:52] VITALS: BP 143/79; PULSE 72; RESP 18; TEMP 97.7; BMI 31.4
== END 2021-12-20 07:09 ==
LOC: JER 00:35
DX: M54.2 Cervicalgia (principal); M54.50 Low back pain, unspecified; M25.561 Pain in right knee; W01.0XXA Fall on same level from slipping, tripping and stumbling without subsequent striking against object, initial encounter
CPT/HCPCS: 70450-TC; 72125-TC; 72128-TC; 73562-TC-RT-FY; 99285-25